=== PATIENT | male | born 1970 | race Caucasian/White ===

== ENCOUNTER 2017-11-08 04:13 | Inpatient (IN) | payer BC, MEDICAID ==
[~2017-11-08] VITALS: Ht 198.1 cm; Wt 143.2 kg
[~2017-11-08 04:13] MED LIST: CLIN-5 PO; DILT180C64 PO; ENOX100D5 SQ; FOLI1TAB16 PO; THI100T PO
[2017-11-08 05:19] LABS: BASOPHILS % (AUTO) 0.4 % (0-1); EOSINOPHILS # (AUTO) 0.1 X10'3 (0-0.9); EOSINOPHILS % (AUTO) 1.8 % (0-6); HEMATOCRIT 49.8 % (42.0-52.0); HEMOGLOBIN 17.1 g/dl (14.0-17.9); LYMPHOCYTES # (AUTO) 0.6 X10'3 (1.1-4.8); LYMPHOCYTES % (AUTO) 9.1 % (21-51); MEAN CORPUSCULAR HEMOGLOBIN 30.4 PG (27.0-31.0); MEAN CORPUSCULAR HGB CONC 34.3 % (33.0-36.5); MEAN CORPUSCULAR VOLUME 88.6 FL (78-98); MEAN PLATELET VOLUME 8.3 FL (7.4-10.4); MONOCYTES # (AUTO) 0.7 X10'3 (0-0.9); MONOCYTES % (AUTO) 10.2 % (2-12); NEUTROPHILS # (AUTO) 5.1 X10'3 (1.8-7.7); NEUTROPHILS % (AUTO) 78.5 % (42-75); PLATELET COUNT 237 X10'3 (140-440); RED BLOOD COUNT 5.62 X10'6 (4.70-6.10); RED CELL DISTRIBUTION WIDTH 12.3 % (11.5-14.5); WHITE BLOOD COUNT 6.4 X10'3 (4.5-11.0)
[2017-11-08 05:31] LABS: INR 0.9 INR; PARTIAL THROMBOPLASTIN TIME 32 SECONDS (22-32); PROTHROMBIN TIME 9.6 SECONDS (9.0-12.0)
[2017-11-08 05:35] LABS: ALANINE AMINOTRANSFERASE 52 U/L (12-78); ALBUMIN 3.8 G/DL (3.4-5.0); ALKALINE PHOSPHATASE 86 IU/L (46-116); ANION GAP 12 (8-16); ASPARTATE AMINO TRANSFERASE 51 U/L (10-37); BILIRUBIN,TOTAL 0.6 MG/DL (0.1-1.0); BLOOD UREA NITROGEN 16 MG/DL (7-18); CALCIUM 8.3 MG/DL (8.5-10.1); CHLORIDE 105 MMOL/L (99-107); GLUCOSE 107 MG/DL (70-104); POTASSIUM 3.9 MMOL/L (3.5-5.1); SODIUM 138 MMOL/L (135-145); TOTAL CARBON DIOXIDE 21.1 MMOL/L (24-32); TOTAL PROTEIN 7.5 G/DL (6.4-8.2); eGFR 80 ML/MIN
[2017-11-08] MEDS ORDERED: HYDROmorphone 1 mg/ml syringe IV ONE (06:20)
[2017-11-08] MEDS ORDERED: HYDROmorphone 2mg/ml vial IV ONE (06:30)
[2017-11-08] MEDS ORDERED: iohexol 350MG/ML 100ml bottle IV ONE (06:58)
[2017-11-08] MEDS ORDERED: HYDROmorphone 2mg/ml vial IV PRN (08:30)
[2017-11-08] MEDS ORDERED: magnesium hydroxide 30ml (MOM) UD suspension PO PRN ×2 (10:15)
[2017-11-08] MEDS ORDERED: potassium Cl 20 mEq SR tablet PO PRN ×2 (10:15)
[2017-11-08] MEDS ORDERED: magnesium 4gm in 100ml NS 100 ML IV PRN (10:15)
[2017-11-08] MEDS ORDERED: HYDROcodone/acetaminophen 5mg/325mg tablet PO PRN (10:15)
[2017-11-08] MEDS ORDERED: magnesium 2GM in 50ml NS 50 ML IV PRN (10:15)
[2017-11-08] MEDS ORDERED: acetaminophen 325mg tablet PO PRN ×2 (10:15)
[2017-11-08] MEDS ORDERED: potassium Cl 40MEQ/NS 500ml 500 ML IV PRN ×2 (10:15)
[2017-11-08] MEDS ORDERED: magnesium Cl slow-release 64mg tablet PO PRN (10:15)
[2017-11-08] MEDS ORDERED: bisacodyl 10mg suppository rectal RC PRN (10:15)
[2017-11-08] MEDS ORDERED: HYDROmorphone 1 mg/ml syringe IV PRN ×2 (10:15)
[2017-11-08] MEDS ORDERED: mag hydrox/Alum hydrox/simeth 30ml oral suspension PO PRN ×2 (10:15)
[2017-11-08] MEDS ORDERED: enoxaparin 100mg/ml syringe SUBCUT ONE (10:20)
[2017-11-08] MEDS ORDERED: hydrALAZINE 20mg/ml inj. IV PRN (10:40)
[2017-11-08] MEDS: HYDROcodone/acetaminophen 10/325mg tab PO PRN ×4 (11:07→22:52)
[2017-11-08] MEDS: cefTRIAXone 1g/NS 100ml IVPB 100 ML IV SCH (11:12)
[2017-11-08] MEDS: diltiazem CD 180mg cap (once-daily) PO SCH (11:28)
[2017-11-08] MEDS: potassium cl 20mEq in 1/2 NS 1,000 ML IV SCH ×2 (11:28→20:30)
[2017-11-08 12:33] VITALS: BP 152/94
[2017-11-08] MEDS: morphine 2 MG/ML inj. syringe IV PRN ×3 (13:29→20:30)
[2017-11-08] MEDS: guaiFENesin 200 MG/10 ML oral syrup UD cup PO SCH ×2 (13:33→20:21)
[2017-11-08] MEDS: ondansetron/PF 4mg/2ml inj IV PRN (19:07)
[2017-11-08 20:00] VITALS: BP 153/95
[2017-11-08] MEDS: docusate sod 100mg capsule PO SCH (20:00)
[2017-11-08] MEDS: enoxaparin 40mg/0.4ml syringe SUBCUT SCH (20:21)
[2017-11-08] MEDS: diatr meglu/diatrizoate 30ml oral sol.-(3 dose) bottle PO SCH (20:22)
[2017-11-08] MEDS: enoxaparin 100mg/ml syringe SUBCUT SCH (20:22)
[2017-11-09] VITALS: BP 132/69
[2017-11-09] MEDS: guaiFENesin 200 MG/10 ML oral syrup UD cup PO SCH ×5 (01:43→20:04)
[2017-11-09] MEDS: morphine 2 MG/ML inj. syringe IV PRN ×4 (03:49→21:07)
[2017-11-09] MEDS: ondansetron/PF 4mg/2ml inj IV PRN ×5 (04:01→21:07)
[2017-11-09 05:29] LABS: BASOPHILS % (AUTO) 0.4 % (0-1); EOSINOPHILS # (AUTO) 0.1 X10'3 (0-0.9); EOSINOPHILS % (AUTO) 0.9 % (0-6); HEMATOCRIT 43.9 % (42.0-52.0); HEMOGLOBIN 15.4 g/dl (14.0-17.9); LYMPHOCYTES # (AUTO) 0.8 X10'3 (1.1-4.8); LYMPHOCYTES % (AUTO) 12.6 % (21-51); MEAN CORPUSCULAR HEMOGLOBIN 31.3 PG (27.0-31.0); MEAN CORPUSCULAR HGB CONC 35.2 % (33.0-36.5); MEAN CORPUSCULAR VOLUME 88.8 FL (78-98); MEAN PLATELET VOLUME 8.8 FL (7.4-10.4); MONOCYTES % (AUTO) 16.5 % (2-12); NEUTROPHILS # (AUTO) 4.4 X10'3 (1.8-7.7); NEUTROPHILS % (AUTO) 69.6 % (42-75); PLATELET COUNT 194 X10'3 (140-440); RED BLOOD COUNT 4.94 X10'6 (4.70-6.10); RED CELL DISTRIBUTION WIDTH 12.1 % (11.5-14.5); WHITE BLOOD COUNT 6.3 X10'3 (4.5-11.0)
[2017-11-09 05:48] LABS: ALANINE AMINOTRANSFERASE 54 U/L (12-78); ALBUMIN 3.3 G/DL (3.4-5.0); ALBUMIN/GLOBULIN RATIO 0.9 (1.1-1.5); ALKALINE PHOSPHATASE 71 IU/L (46-116); ANION GAP 6 (8-16); ASPARTATE AMINO TRANSFERASE 40 U/L (10-37); BILIRUBIN,TOTAL 0.5 MG/DL (0.1-1.0); BLOOD UREA NITROGEN 11 MG/DL (7-18); CHLORIDE 100 MMOL/L (99-107); CHOL/HDL RATIO 3.7 (0.00-4.99); CHOLESTEROL 187 MG/DL (0-200); GLUCOSE 111 MG/DL (70-104); HDL CHOLESTEROL 51 MG/DL (35-60); LDL CHOLESTEROL 121 MG/DL (50-100); MAGNESIUM 1.7 MG/DL (1.5-2.4); POTASSIUM 3.7 MMOL/L (3.5-5.1); SODIUM 135 MMOL/L (135-145); TOTAL CARBON DIOXIDE 28.7 MMOL/L (24-32); TOTAL PROTEIN 6.8 G/DL (6.4-8.2); TRIGLYCERIDES 128 MG/DL (20-135); eGFR 80 ML/MIN
[2017-11-09] MEDS: thiamine 100mg tablet PO SCH (07:25)
[2017-11-09] MEDS: diltiazem CD 180mg cap (once-daily) PO SCH (07:25)
[2017-11-09] MEDS: docusate sod 100mg capsule PO SCH ×2 (07:25→20:00)
[2017-11-09] MEDS: folic acid 1mg tablet PO SCH (07:25)
[2017-11-09] MEDS: K and/or MAG REPLACEMENT MC SCH (07:26)
[2017-11-09] MEDS: cefTRIAXone 1g/NS 100ml IVPB 100 ML IV SCH (07:40)
[2017-11-09] MEDS: enoxaparin 40mg/0.4ml syringe SUBCUT SCH ×2 (07:47→20:05)
[2017-11-09] MEDS: enoxaparin 100mg/ml syringe SUBCUT SCH ×2 (07:49→20:05)
[2017-11-09] MEDS: diatr meglu/diatrizoate 30ml oral sol.-(3 dose) bottle PO SCH ×2 (07:50→09:56)
[2017-11-09 08:00] VITALS: BP 168/77
[2017-11-09] MEDS ORDERED: iohexol 350MG/ML 100ml bottle IV ONE (09:57)
[2017-11-09 11:00] VITALS: BP 164/76
[2017-11-09] MEDS ORDERED: ketorolac trometh. 30mg/ml inj. IV PRN (12:50)
[2017-11-09] MEDS: oseltamivir phos 75mg capsule PO SCH ×2 (13:37→20:04)
[2017-11-09] MEDS: potassium cl 20mEq in 1/2 NS 1,000 ML IV SCH (13:49)
[2017-11-09 20:00] VITALS: BP 142/78
[2017-11-09] MEDS: lactobacillus rhamnosus 10,000 MMU CELLS/CAPSULE PO SCH (20:04)
[2017-11-10] VITALS: BP 143/84
[2017-11-10] MEDS: potassium cl 20mEq in 1/2 NS 1,000 ML IV SCH ×2 (03:15→18:08)
[2017-11-10] MEDS: ondansetron/PF 4mg/2ml inj IV PRN ×3 (03:58→19:00)
[2017-11-10] MEDS: morphine 2 MG/ML inj. syringe IV PRN ×4 (03:59→19:00)
[2017-11-10 05:11] LABS: BASOPHILS % (AUTO) 0.5 % (0-1); EOSINOPHILS % (AUTO) 0 % (0-6); HEMOGLOBIN 15.3 g/dl (14.0-17.9); LYMPHOCYTES # (AUTO) 1.3 X10'3 (1.1-4.8); LYMPHOCYTES % (AUTO) 24.3 % (21-51); MEAN CORPUSCULAR HEMOGLOBIN 31.4 PG (27.0-31.0); MEAN CORPUSCULAR HGB CONC 35.5 % (33.0-36.5); MEAN CORPUSCULAR VOLUME 88.4 FL (78-98); MEAN PLATELET VOLUME 8.8 FL (7.4-10.4); MONOCYTES # (AUTO) 1.2 X10'3 (0-0.9); MONOCYTES % (AUTO) 22.4 % (2-12); NEUTROPHILS # (AUTO) 2.8 X10'3 (1.8-7.7); NEUTROPHILS % (AUTO) 52.8 % (42-75); PLATELET COUNT 203 X10'3 (140-440); RED BLOOD COUNT 4.86 X10'6 (4.70-6.10); RED CELL DISTRIBUTION WIDTH 11.9 % (11.5-14.5); WHITE BLOOD COUNT 5.2 X10'3 (4.5-11.0)
[2017-11-10 05:36] LABS: ALANINE AMINOTRANSFERASE 55 U/L (12-78); ALBUMIN 3.2 G/DL (3.4-5.0); ALBUMIN/GLOBULIN RATIO 0.9 (1.1-1.5); ALKALINE PHOSPHATASE 68 IU/L (46-116); ANION GAP 7 (8-16); ASPARTATE AMINO TRANSFERASE 39 U/L (10-37); BILIRUBIN,TOTAL 0.5 MG/DL (0.1-1.0); BLOOD UREA NITROGEN 13 MG/DL (7-18); BUN/CREATININE RATIO 11.8 (5.4-32.0); CALCIUM 8.2 MG/DL (8.5-10.1); CHLORIDE 101 MMOL/L (99-107); GLUCOSE 98 MG/DL (70-104); MAGNESIUM 2.1 MG/DL (1.5-2.4); POTASSIUM 3.7 MMOL/L (3.5-5.1); SODIUM 138 MMOL/L (135-145); TOTAL CARBON DIOXIDE 29.6 MMOL/L (24-32); TOTAL PROTEIN 6.7 G/DL (6.4-8.2); eGFR 71 ML/MIN
[2017-11-10] MEDS: K and/or MAG REPLACEMENT MC SCH (07:28)
[2017-11-10 07:30] VITALS: BP 150/83
[2017-11-10] MEDS: enoxaparin 100mg/ml syringe SUBCUT SCH ×2 (07:37→20:46)
[2017-11-10] MEDS: enoxaparin 40mg/0.4ml syringe SUBCUT SCH ×2 (07:37→20:46)
[2017-11-10] MEDS: guaiFENesin 200 MG/10 ML oral syrup UD cup PO SCH ×4 (07:37→20:45)
[2017-11-10] MEDS: oseltamivir phos 75mg capsule PO SCH ×2 (07:38→20:46)
[2017-11-10] MEDS: thiamine 100mg tablet PO SCH (07:38)
[2017-11-10] MEDS: diltiazem CD 180mg cap (once-daily) PO SCH (07:38)
[2017-11-10] MEDS: lactobacillus rhamnosus 10,000 MMU CELLS/CAPSULE PO SCH ×2 (07:38→20:45)
[2017-11-10] MEDS: cefTRIAXone 1g/NS 100ml IVPB 100 ML IV SCH (07:38)
[2017-11-10] MEDS: folic acid 1mg tablet PO SCH (07:38)
[2017-11-10] MEDS: docusate sod 100mg capsule PO SCH ×2 (07:38→19:59)
[2017-11-10 12:10] VITALS: BP 140/88
[2017-11-10] MEDS: HYDROcodone/acetaminophen 10/325mg tab PO PRN (16:54)
[2017-11-10] MEDS ORDERED: LORazepam 2 mg/ml vial IV ONE (17:05)
[2017-11-10 20:00] VITALS: BP 154/83
[2017-11-11] VITALS: BP 158/72
[2017-11-11] MEDS: ondansetron/PF 4mg/2ml inj IV PRN (01:08)
[2017-11-11] MEDS: morphine 2 MG/ML inj. syringe IV PRN ×2 (01:08→08:02)
[2017-11-11] MEDS: HYDROcodone/acetaminophen 10/325mg tab PO PRN ×3 (04:54→17:19)
[2017-11-11 05:18] LABS: BASOPHILS % (AUTO) 0.3 % (0-1); EOSINOPHILS # (AUTO) 0.1 X10'3 (0-0.9); EOSINOPHILS % (AUTO) 1.1 % (0-6); HEMOGLOBIN 16.6 g/dl (14.0-17.9); LYMPHOCYTES # (AUTO) 1.5 X10'3 (1.1-4.8); LYMPHOCYTES % (AUTO) 28.3 % (21-51); MEAN CORPUSCULAR HEMOGLOBIN 31.2 PG (27.0-31.0); MEAN CORPUSCULAR HGB CONC 35.3 % (33.0-36.5); MEAN CORPUSCULAR VOLUME 88.4 FL (78-98); MEAN PLATELET VOLUME 8.8 FL (7.4-10.4); MONOCYTES # (AUTO) 0.9 X10'3 (0-0.9); MONOCYTES % (AUTO) 17.9 % (2-12); NEUTROPHILS # (AUTO) 2.7 X10'3 (1.8-7.7); NEUTROPHILS % (AUTO) 52.4 % (42-75); PLATELET COUNT 212 X10'3 (140-440); RED BLOOD COUNT 5.32 X10'6 (4.70-6.10); WHITE BLOOD COUNT 5.2 X10'3 (4.5-11.0)
[2017-11-11 05:34] LABS: ALANINE AMINOTRANSFERASE 64 U/L (12-78); ALBUMIN 3.4 G/DL (3.4-5.0); ALBUMIN/GLOBULIN RATIO 0.9 (1.1-1.5); ALKALINE PHOSPHATASE 71 IU/L (46-116); ANION GAP 7 (8-16); ASPARTATE AMINO TRANSFERASE 45 U/L (10-37); BILIRUBIN,TOTAL 0.5 MG/DL (0.1-1.0); BLOOD UREA NITROGEN 12 MG/DL (7-18); BUN/CREATININE RATIO 10.1 (5.4-32.0); CALCIUM 8.5 MG/DL (8.5-10.1); CHLORIDE 101 MMOL/L (99-107); CREATININE 1.19 MG/DL (0.60-1.10); GLUCOSE 83 MG/DL (70-104); MAGNESIUM 2.2 MG/DL (1.5-2.4); POTASSIUM 3.8 MMOL/L (3.5-5.1); SODIUM 141 MMOL/L (135-145); TOTAL PROTEIN 7.2 G/DL (6.4-8.2); eGFR 65 ML/MIN
[2017-11-11] MEDS: K and/or MAG REPLACEMENT MC SCH (06:38)
[2017-11-11 07:17] VITALS: BP 128/77
[2017-11-11] MEDS: thiamine 100mg tablet PO SCH (08:02)
[2017-11-11] MEDS: lactobacillus rhamnosus 10,000 MMU CELLS/CAPSULE PO SCH ×2 (08:02→19:13)
[2017-11-11] MEDS: diltiazem CD 180mg cap (once-daily) PO SCH (08:02)
[2017-11-11] MEDS: docusate sod 100mg capsule PO SCH ×2 (08:02→19:13)
[2017-11-11] MEDS: guaiFENesin 200 MG/10 ML oral syrup UD cup PO SCH ×4 (08:02→21:20)
[2017-11-11] MEDS: folic acid 1mg tablet PO SCH (08:02)
[2017-11-11] MEDS: CefTRIAXone 1 gm/50ml D5W ADV 50 ML IV SCH (08:03)
[2017-11-11] MEDS: enoxaparin 40mg/0.4ml syringe SUBCUT SCH ×2 (08:04→19:14)
[2017-11-11] MEDS: enoxaparin 100mg/ml syringe SUBCUT SCH ×2 (08:04→19:14)
[2017-11-11] MEDS: oseltamivir phos 75mg capsule PO SCH ×2 (08:12→19:13)
[2017-11-11] MEDS: potassium cl 20mEq in 1/2 NS 1,000 ML IV SCH (10:02)
[2017-11-11 11:14] VITALS: BP 149/92
[2017-11-11] MEDS ORDERED: morphine 5 MG/ML injection IV PRN (19:25)
[2017-11-11 20:00] VITALS: BP 147/83
[2017-11-11] MEDS: morphine 5 MG/ML injection IV PRN (21:21)
[2017-11-12] VITALS: BP 145/77
[2017-11-12] MEDS: potassium cl 20mEq in 1/2 NS 1,000 ML IV SCH ×2 (00:03→08:31)
[2017-11-12] MEDS: morphine 5 MG/ML injection IV PRN ×2 (01:59→07:24)
[2017-11-12 05:42] LABS: BASOPHILS % (AUTO) 0.5 % (0-1); EOSINOPHILS # (AUTO) 0.1 X10'3 (0-0.9); EOSINOPHILS % (AUTO) 1.7 % (0-6); HEMATOCRIT 50.4 % (42.0-52.0); HEMOGLOBIN 17.5 g/dl (14.0-17.9); LYMPHOCYTES # (AUTO) 1.4 X10'3 (1.1-4.8); LYMPHOCYTES % (AUTO) 29.9 % (21-51); MEAN CORPUSCULAR HEMOGLOBIN 30.9 PG (27.0-31.0); MEAN CORPUSCULAR HGB CONC 34.7 % (33.0-36.5); MEAN CORPUSCULAR VOLUME 88.9 FL (78-98); MEAN PLATELET VOLUME 8.9 FL (7.4-10.4); MONOCYTES # (AUTO) 0.6 X10'3 (0-0.9); MONOCYTES % (AUTO) 13.6 % (2-12); NEUTROPHILS # (AUTO) 2.5 X10'3 (1.8-7.7); NEUTROPHILS % (AUTO) 54.3 % (42-75); PLATELET COUNT 232 X10'3 (140-440); RED BLOOD COUNT 5.67 X10'6 (4.70-6.10); WHITE BLOOD COUNT 4.6 X10'3 (4.5-11.0)
[2017-11-12 06:22] LABS: ALANINE AMINOTRANSFERASE 82 U/L (12-78); ALBUMIN 3.5 G/DL (3.4-5.0); ALBUMIN/GLOBULIN RATIO 0.9 (1.1-1.5); ALKALINE PHOSPHATASE 73 IU/L (46-116); ANION GAP 11 (8-16); ASPARTATE AMINO TRANSFERASE 50 U/L (10-37); BILIRUBIN,TOTAL 0.8 MG/DL (0.1-1.0); BLOOD UREA NITROGEN 12 MG/DL (7-18); BUN/CREATININE RATIO 10.4 (5.4-32.0); CALCIUM 8.3 MG/DL (8.5-10.1); CHLORIDE 101 MMOL/L (99-107); CREATININE 1.15 MG/DL (0.60-1.10); GLUCOSE 82 MG/DL (70-104); POTASSIUM 3.4 MMOL/L (3.5-5.1); SODIUM 141 MMOL/L (135-145); TOTAL CARBON DIOXIDE 29.4 MMOL/L (24-32); TOTAL PROTEIN 7.3 G/DL (6.4-8.2); eGFR 68 ML/MIN
[2017-11-12 07:00] VITALS: BP 136/75
[2017-11-12] MEDS: enoxaparin 40mg/0.4ml syringe SUBCUT SCH (08:23)
[2017-11-12] MEDS: CefTRIAXone 1 gm/50ml D5W ADV 50 ML IV SCH (08:24)
[2017-11-12] MEDS: enoxaparin 100mg/ml syringe SUBCUT SCH (08:24)
[2017-11-12] MEDS: docusate sod 100mg capsule PO SCH (08:25)
[2017-11-12] MEDS: diltiazem CD 180mg cap (once-daily) PO SCH (08:25)
[2017-11-12] MEDS: thiamine 100mg tablet PO SCH (08:25)
[2017-11-12] MEDS: lactobacillus rhamnosus 10,000 MMU CELLS/CAPSULE PO SCH (08:25)
[2017-11-12] MEDS: oseltamivir phos 75mg capsule PO SCH (08:25)
[2017-11-12] MEDS: folic acid 1mg tablet PO SCH (08:25)
[2017-11-12] MEDS: guaiFENesin 200 MG/10 ML oral syrup UD cup PO SCH ×2 (08:25→13:17)
[2017-11-12 11:00] VITALS: BP 137/82
[2017-11-12] MEDS ORDERED: potassium bicarbonate/cit acid 25mEq tablet.effervescent PO SCH (11:15)
[2017-11-12] MEDS ORDERED: LISI-604 PO (11:46)
[2017-11-12] MEDS ORDERED: DOXY100C2 PO (11:46)
[2017-11-12] MEDS ORDERED: potassium chloride 10mEq CAPSULE.SA PO SCH (11:50)
[2017-11-12] MEDS ORDERED: potassium Cl 20 mEq SR tablet PO SCH (11:52)
[2017-11-12] MEDS ORDERED: cefTRIAXone 1g/NS 100ml IVPB 100 ML IV SCH (11:57)
== END 2017-11-12 15:11 | disposition home or self-care (01) | DRG 194 ==
LOC: ER 04:14 → ED HOLD 10:12 → EDBEDREQ 11:49 → SUR 3N 12:14
PROVIDERS: ADMIT Internal Medicine; ATTEND Family Medicine
PROC: B32T1ZZ Computerized Tomography (CT Scan) of Left Pulmonary Artery using Low Osmolar Contrast (ICD-10-PCS; 2017-11-08)
PROC: B3201ZZ Computerized Tomography (CT Scan) of Thoracic Aorta using Low Osmolar Contrast (ICD-10-PCS; 2017-11-08)
PROC: B32S1ZZ Computerized Tomography (CT Scan) of Right Pulmonary Artery using Low Osmolar Contrast (ICD-10-PCS; 2017-11-08)
PROC: BW211ZZ Computerized Tomography (CT Scan) of Abdomen and Pelvis using Low Osmolar Contrast (ICD-10-PCS; principal; 2017-11-09)
DX: J10.1 Influenza due to other identified influenza virus with other respiratory manifestations (principal); I82.401 Acute embolism and thrombosis of unspecified deep veins of right lower extremity; F10.20 Alcohol dependence, uncomplicated; I10 Essential (primary) hypertension; M51.36 Other intervertebral disc degeneration, lumbar region; Z86.711 Personal history of pulmonary embolism; Z86.718 Personal history of other venous thrombosis and embolism; Z87.891 Personal history of nicotine dependence
CPT/HCPCS: 36415; 71045; 71275; 74177; 80053; 80061; 83735; 84484; 85025; 85610; 85730; 87070; 87502; 87503; 93005; 93306; 93971; 96374; 96376; 99285; J0696; J1170; J1650; J1885; J2060; J2270; J2405; J7030; Q9963; Q9967

== ENCOUNTER 2018-08-07 12:04 | Emergency (ER) | payer BC ==
[~2018-08-07] VITALS: Ht 198.1 cm; Wt 132.0 kg
[~2018-08-07 12:04] MED LIST changes: -CLIN-5 PO; +LISI-604 PO
[2018-08-07 12:38] LABS: BASOPHILS % (AUTO) 0.4 % (0-1); EOSINOPHILS # (AUTO) 0.1 X10'3 (0-0.9); EOSINOPHILS % (AUTO) 1.2 % (0-6); HEMATOCRIT 53.7 % (42.0-52.0); LYMPHOCYTES # (AUTO) 1.8 X10'3 (1.1-4.8); LYMPHOCYTES % (AUTO) 26.2 % (21-51); MEAN CORPUSCULAR HEMOGLOBIN 30.3 PG (27.0-31.0); MEAN CORPUSCULAR HGB CONC 33.6 % (33.0-36.5); MEAN CORPUSCULAR VOLUME 90.3 FL (78-98); MEAN PLATELET VOLUME 8.5 FL (7.4-10.4); MONOCYTES # (AUTO) 0.6 X10'3 (0-0.9); MONOCYTES % (AUTO) 8.7 % (2-12); NEUTROPHILS # (AUTO) 4.3 X10'3 (1.8-7.7); NEUTROPHILS % (AUTO) 63.5 % (42-75); PLATELET COUNT 290 X10'3 (140-440); RED BLOOD COUNT 5.94 X10'6 (4.70-6.10); WHITE BLOOD COUNT 6.8 X10'3 (4.5-11.0)
[2018-08-07] MEDS ORDERED: iohexol 350MG/ML 100ml bottle IV ONE ×2 (12:50→13:18)
[2018-08-07 12:51] LABS: ALANINE AMINOTRANSFERASE 54 U/L (12-78); ALBUMIN 3.8 G/DL (3.4-5.0); ALKALINE PHOSPHATASE 103 IU/L (46-116); ANION GAP 9 (8-16); ASPARTATE AMINO TRANSFERASE 24 U/L (10-37); BLOOD UREA NITROGEN 12 MG/DL (7-18); BUN/CREATININE RATIO 11.5 (5.4-32.0); CALCIUM 9.2 MG/DL (8.5-10.1); CHLORIDE 102 MMOL/L (99-107); CREATININE 1.04 MG/DL (0.60-1.10); GLUCOSE 98 MG/DL (70-104); POTASSIUM 3.9 MMOL/L (3.5-5.1); SODIUM 138 MMOL/L (135-145); TOTAL CARBON DIOXIDE 26.6 MMOL/L (24-32); TOTAL PROTEIN 7.7 G/DL (6.4-8.2); eGFR 76 ML/MIN
[2018-08-07] MEDS ORDERED: ondansetron/PF 4mg/2ml inj IV ONE (12:55)
[2018-08-07] MEDS ORDERED: morphine 10mg/ml inj. IV ONE (12:55)
[2018-08-07 13:01] LABS: D-DIMER 0.25 MG/L FEU (0-0.50); PARTIAL THROMBOPLASTIN TIME 31 SECONDS (22-32)
[2018-08-07] MEDS ORDERED: enoxaparin 100mg/ml syringe SUBCUT ONE (13:40)
[2018-08-07] MEDS ORDERED: TRAM50TA2 PO (14:48)
[2018-08-07] MEDS ORDERED: APIX5TAB3 PO (14:48)
[2018-08-07 14:54] VITALS: BP 155/97
== END 2018-08-07 14:55 | disposition home or self-care (01) ==
LOC: ER 12:05
DX: I82.411 Acute embolism and thrombosis of right femoral vein (principal); R06.02 Shortness of breath; R07.9 Chest pain, unspecified; R05 Cough
CPT/HCPCS: 36415; 71045; 71275; 80053; 84484; 85025; 85379; 85610; 85730; 93005; 93971; 96372; 96374; 96375; 99285; J2270; J2405; Q9967; J1650

== ENCOUNTER 2019-08-17 08:03 | Emergency (ER) | payer BC ==
[~2019-08-17] VITALS: Ht 198.1 cm; Wt 143.0 kg
[~2019-08-17 08:03] MED LIST changes: +APIX5TAB3 PO
[2019-08-17] MEDS ORDERED: oxyCODONE/APAP 5-325mg tablet PO ONE (08:20)
[2019-08-17] MEDS ORDERED: oxyCODONE/APAP 10/325mg tablet PO ONE (08:20)
[2019-08-17] MEDS ORDERED: apixaban 5mg tablet PO STA (08:21)
[2019-08-17] MEDS ORDERED: enoxaparin 100mg/ml syringe SUBCUT ONE (08:25)
[2019-08-17] MEDS ORDERED: enoxaparin 40mg/0.4ml syringe SQ ONE (08:30)
[2019-08-17 08:37] LABS: BASOPHILS % (AUTO) 0.7 % (0-1); EOSINOPHILS # (AUTO) 0.1 X10'3 (0-0.9); EOSINOPHILS % (AUTO) 1.5 % (0-6); HEMATOCRIT 53.9 % (42.0-52.0); LYMPHOCYTES # (AUTO) 2.1 X10'3 (1.1-4.8); LYMPHOCYTES % (AUTO) 31.9 % (21-51); MEAN CORPUSCULAR HEMOGLOBIN 31.1 PG (27.0-31.0); MEAN CORPUSCULAR HGB CONC 33.9 g/dL (33.0-36.5); MEAN CORPUSCULAR VOLUME 91.8 FL (78-98); MEAN PLATELET VOLUME 8.5 FL (7.4-10.4); MONOCYTES # (AUTO) 0.7 X10'3 (0-0.9); MONOCYTES % (AUTO) 11.1 % (2-12); NEUTROPHILS # (AUTO) 3.5 X10'3 (1.8-7.7); NEUTROPHILS % (AUTO) 54.8 % (42-75); PLATELET COUNT 272 X10'3 (140-440); RED BLOOD COUNT 5.87 X10'6 (4.70-6.10); RED CELL DISTRIBUTION WIDTH 13.7 % (11.5-14.5); WHITE BLOOD COUNT 6.4 X10'3 (4.5-11.0)
--- NOTE | 2019-08-17 08:45 | NUR ---
Vascular at bedside.
[2019-08-17 08:47] LABS: HEMOGLOBIN 18.3 g/dl (14.0-17.9)
[2019-08-17 08:52] LABS: D-DIMER < 0.19 MG/L FEU (0-0.50)
[2019-08-17 08:55] LABS: ALANINE AMINOTRANSFERASE 37 U/L (12-78); ALBUMIN 3.9 G/DL (3.4-5.0); ALBUMIN/GLOBULIN RATIO 0.9 (1.1-1.5); ALKALINE PHOSPHATASE 96 IU/L (46-116); ANION GAP 7 (8-16); ASPARTATE AMINO TRANSFERASE 24 U/L (10-37); BILIRUBIN,TOTAL 0.5 MG/DL (0.1-1.0); BLOOD UREA NITROGEN 15 MG/DL (7-18); CHLORIDE 105 MMOL/L (99-107); CREATININE 1.07 MG/DL (0.60-1.10); GLUCOSE 100 MG/DL (70-104); POTASSIUM 4.7 MMOL/L (3.5-5.1); SODIUM 139 MMOL/L (135-145); TOTAL CARBON DIOXIDE 26.8 MMOL/L (24-32); TOTAL PROTEIN 8.2 G/DL (6.4-8.2); eGFR 73 ML/MIN
[2019-08-17 09:01] LABS: MAGNESIUM 1.9 MG/DL (1.5-2.4)
[2019-08-17 10:02] VITALS: BP 163/96
== END 2019-08-17 10:08 | disposition home or self-care (01) ==
LOC: ER 08:04
DX: I82.531 Chronic embolism and thrombosis of right popliteal vein (principal); R07.89 Other chest pain; R05 Cough; F10.99 Alcohol use, unspecified with unspecified alcohol-induced disorder; Z79.01 Long term (current) use of anticoagulants; Y90.9 Presence of alcohol in blood, level not specified
CPT/HCPCS: 36415; 71045; 80053; 83735; 83880; 84484; 85025; 85379; 85610; 93005; 93971; 96372; 99284; J1650

== ENCOUNTER 2020-03-09 18:11 | Inpatient (IN) | payer BC ==
[~2020-03-09] VITALS: Ht 198.1 cm; Wt 145.4 kg
[2020-03-09 18:48] LABS: BASOPHILS # (AUTO) 0.1 X10'3 (0-0.2); BASOPHILS % (AUTO) 0.7 % (0-1); EOSINOPHILS # (AUTO) 0.1 X10'3 (0-0.9); HEMATOCRIT 53.5 % (42.0-52.0); LYMPHOCYTES # (AUTO) 2.5 X10'3 (1.1-4.8); LYMPHOCYTES % (AUTO) 23.3 % (21-51); MEAN CORPUSCULAR HEMOGLOBIN 31.8 PG (27.0-31.0); MEAN CORPUSCULAR HGB CONC 34.3 g/dL (33.0-36.5); MEAN CORPUSCULAR VOLUME 92.7 FL (78-98); MEAN PLATELET VOLUME 8.9 FL (7.4-10.4); MONOCYTES # (AUTO) 1.1 X10'3 (0-0.9); MONOCYTES % (AUTO) 10.1 % (2-12); NEUTROPHILS # (AUTO) 6.8 X10'3 (1.8-7.7); NEUTROPHILS % (AUTO) 64.9 % (42-75); PLATELET COUNT 283 X10'3 (140-440); RED BLOOD COUNT 5.78 X10'6 (4.70-6.10); RED CELL DISTRIBUTION WIDTH 13.3 % (11.5-14.5); WHITE BLOOD COUNT 10.5 X10'3 (4.5-11.0)
[2020-03-09 18:54] LABS: HEMOGLOBIN 18.4 g/dl (14.0-17.9)
[2020-03-09 18:59] LABS: ALANINE AMINOTRANSFERASE 68 U/L (12-78); ALBUMIN/GLOBULIN RATIO 1.1 (1.1-1.5); ALKALINE PHOSPHATASE 92 IU/L (46-116); ANION GAP 14 (8-16); ASPARTATE AMINO TRANSFERASE 40 U/L (10-37); BILIRUBIN,TOTAL 1.1 MG/DL (0.1-1.0); BLOOD UREA NITROGEN 13 MG/DL (7-18); BUN/CREATININE RATIO 11.2 (5.4-32.0); CALCIUM 9.2 MG/DL (8.5-10.1); CHLORIDE 105 MMOL/L (99-107); CREATININE 1.16 MG/DL (0.60-1.10); GLUCOSE 92 MG/DL (70-104); POTASSIUM 3.7 MMOL/L (3.5-5.1); SODIUM 143 MMOL/L (135-145); TOTAL CARBON DIOXIDE 24.5 MMOL/L (24-32); TOTAL PROTEIN 7.7 G/DL (6.4-8.2); eGFR 67 ML/MIN
[2020-03-09] MEDS ORDERED: nitroGLYCERIN 0.4mg SUBLingual tab SL PRN (19:30)
[2020-03-09] MEDS ORDERED: aspirin 81mg tab.chew PO ONE (19:30)
[2020-03-09] MEDS ORDERED: iohexol 350MG/ML 100ml bottle IV ONE (19:35)
--- NOTE | 2020-03-09 19:47 | NUR ---
DR DOMINGUEZ IS AWAITING APPROVAL FROM DR QUINTANA FOR RAPID COVID 19 TESTING
--- NOTE | 2020-03-09 19:54 | NUR ---
PT APPROVED FOR COVID TESTING BY DR QUINTANA AND RN MADE AWARE
[2020-03-09] MEDS ORDERED: morphine 4 MG/ML inj SYRINge IV ONE (21:30)
[2020-03-09] MEDS ORDERED: heparin 25,000 UNIT/250ml bag 250 ML IV SCH (21:48)
[2020-03-09] MEDS ORDERED: ondansetron/PF 4mg/2ml inj IV PRN (21:50)
[2020-03-09] MEDS ORDERED: morphine 2 MG/ML inj. syringe IV PRN (21:50)
[2020-03-09] MEDS ORDERED: magnesium 2GM in 50ml NS 50 ML IV PRN (21:50)
[2020-03-09] MEDS ORDERED: heparin 10,000 units/1 ML INJ IV PRN (21:50)
[2020-03-09] MEDS ORDERED: acetaminophen 325mg tablet PO PRN (21:50)
[2020-03-09] MEDS ORDERED: mag hydrox/Alum hydrox/simeth 30ml oral suspension PO PRN (21:50)
[2020-03-09] MEDS ORDERED: magnesium 4gm in 100ml NS 100 ML IV PRN (21:50)
[2020-03-09] MEDS ORDERED: HYDROcodone/acetaminophen 5mg/325mg tablet PO PRN (21:50)
[2020-03-09] MEDS ORDERED: potassium Cl 20 mEq SR tablet PO PRN ×2 (21:50)
[2020-03-09] MEDS ORDERED: magnesium hydroxide 30ml (MOM) UD suspension PO PRN (21:50)
[2020-03-09] MEDS ORDERED: magnesium Cl slow-release 64mg tablet PO PRN (21:50)
[2020-03-09] MEDS ORDERED: potassium CL 10mEq/100ml bag 100 ML IV PRN ×2 (21:50)
[2020-03-09] MEDS ORDERED: heparin 10,000 units/1 ML INJ IV ONE (21:50)
[2020-03-09] MEDS ORDERED: bisacodyl 10mg suppository rectal RC PRN (21:50)
[2020-03-09] MEDS ORDERED: temazepam 15mg capsule PO PRN (22:00)
[2020-03-09] MEDS ORDERED: hydrALAZINE 20mg/ml inj. IV PRN (22:05)
[2020-03-09] MEDS ORDERED: metoprolol tartrate 50mg tablet PO ONE (22:05)
--- NOTE | 2020-03-09 22:55 | NUR ---
Received report from Dominik BARRY from ED. Patient came up to floor via gurney. Patient transferred to bed stand by assist. Bed locked & low, call light placed within reach and educated. IV gtt going per MD order.
[2020-03-09 23:10] VITALS: BP 149/93
[2020-03-10 02:00] VITALS: BP 135/87
[2020-03-10] MEDS ORDERED: HYDROmorphone 1 mg/ml syringe IV ONE (03:50)
[2020-03-10] MEDS ORDERED: benzonatate 100mg capsule PO PRN (03:50)
--- NOTE | 2020-03-10 04:15 | NUR ---
RN IS TO DOCUMENT YES TO ALL APPLICABLE AREAS Pronouncement of : 1. Time Physician Notified:414 2. Date of :03/10/20 3. Time of : 414 4. DNR/Withdraw life support documented:Yes 5. Monitor strip has been placed on chart:Yes 6. Assessment process is of one-minute duration and includes following criteria: a) Patient is unresponsive to all stimuli: Yes b) Pupils fixed and non-reactive: Yes c) Auscultation of precordium reveals absence of heart tones: Yes d) Auscultation of lungs reveals absence of breath sounds: Yes e) Absence of blood pressure / all vital signs: Yes f) QRS complexes are not present on monitor / EKG strip: Yes g) Pacer spikes without capture: 4. Comments: Called [facility], donor network and mortuary. Addendum: 03/10/20 at 0452 by Tonia Fuentes RN wrong patient
--- NOTE | 2020-03-10 04:20 | NUR ---
Please disregard last note, wrong patient
--- NOTE | 2020-03-10 05:15 | NUR ---
PTT is 67, within therapeutic level. No change needed to rate.
[2020-03-10 06:00] VITALS: BP 131/83
[2020-03-10 06:21] LABS: BASOPHILS # (AUTO) 0.1 X10'3 (0-0.2); BASOPHILS % (AUTO) 0.9 % (0-1); EOSINOPHILS # (AUTO) 0.2 X10'3 (0-0.9); HEMATOCRIT 49.4 % (42.0-52.0); HEMOGLOBIN 16.7 g/dl (14.0-17.9); LYMPHOCYTES # (AUTO) 2.5 X10'3 (1.1-4.8); LYMPHOCYTES % (AUTO) 30.8 % (21-51); MEAN CORPUSCULAR HEMOGLOBIN 31.2 PG (27.0-31.0); MEAN CORPUSCULAR HGB CONC 33.9 g/dL (33.0-36.5); MEAN PLATELET VOLUME 9.1 FL (7.4-10.4); MONOCYTES % (AUTO) 12.2 % (2-12); NEUTROPHILS # (AUTO) 4.4 X10'3 (1.8-7.7); NEUTROPHILS % (AUTO) 54.1 % (42-75); PLATELET COUNT 266 X10'3 (140-440); RED BLOOD COUNT 5.37 X10'6 (4.70-6.10); RED CELL DISTRIBUTION WIDTH 13.3 % (11.5-14.5); WHITE BLOOD COUNT 8.2 X10'3 (4.5-11.0)
--- NOTE | 2020-03-10 06:25 | NUR ---
Problems reprioritized. Patient report given, questions answered & plan of care reviewed with Aracely BARRY.
--- NOTE | 2020-03-10 06:30 | NUR ---
RECEIVED REPORT FROM ASHA SANTOS
[2020-03-10 06:36] LABS: ALANINE AMINOTRANSFERASE 63 U/L (12-78); ALBUMIN 3.6 G/DL (3.4-5.0); ALKALINE PHOSPHATASE 84 IU/L (46-116); ANION GAP 10 (8-16); ASPARTATE AMINO TRANSFERASE 33 U/L (10-37); BILIRUBIN,TOTAL 1.1 MG/DL (0.1-1.0); BLOOD UREA NITROGEN 15 MG/DL (7-18); BUN/CREATININE RATIO 13.4 (5.4-32.0); CALCIUM 8.6 MG/DL (8.5-10.1); CHLORIDE 104 MMOL/L (99-107); CREATININE 1.12 MG/DL (0.60-1.10); GLUCOSE 107 MG/DL (70-104); PHOSPHORUS 3.5 MG/DL (2.3-4.5); POTASSIUM 3.8 MMOL/L (3.5-5.1); SODIUM 140 MMOL/L (135-145); TOTAL CARBON DIOXIDE 25.8 MMOL/L (24-32); TOTAL PROTEIN 7.1 G/DL (6.4-8.2); eGFR 69 ML/MIN
[2020-03-10] MEDS: K and/or MAG REPLACEMENT MC SCH ×2 (07:20→19:33)
[2020-03-10] MEDS: docusate sod 100mg capsule PO SCH ×2 (07:22→19:54)
[2020-03-10] MEDS ORDERED: apixaban 5mg tablet PO SCH (08:00)
[2020-03-10] MEDS: HYDROmorphone 1 mg/ml syringe IV PRN ×4 (09:41→21:55)
[2020-03-10] MEDS: furosemide 20 MG/2 ML vial IV SCH ×2 (09:44→19:55)
[2020-03-10] MEDS: apixaban 5mg tablet PO SCH ×2 (09:46→19:54)
[2020-03-10 11:00] VITALS: BP 144/95
[2020-03-10] MEDS: oxyCODONE/APAP 5-325mg tablet PO PRN ×3 (11:07→20:07)
[2020-03-10] MEDS ORDERED: furosemide 20 MG/2 ML vial IV SCH (12:55)
[2020-03-10] MEDS: nystatin 15 GM powder TP SCH ×2 (13:44→19:56)
--- NOTE | 2020-03-10 13:50 | NUR ---
scanner on computer not working at this time, checked all meds prior to admin, continue to monitor
[2020-03-10 15:00] VITALS: BP 138/85
[2020-03-10 18:00] VITALS: BP 152/94
--- NOTE | 2020-03-10 18:17 | NUR ---
gave report to ella sinclair
[2020-03-10 22:00] VITALS: BP 141/85
[2020-03-11] MEDS: oxyCODONE/APAP 5-325mg tablet PO PRN ×4 (00:12→20:30)
[2020-03-11 02:00] VITALS: BP 134/87
[2020-03-11] MEDS: HYDROmorphone 1 mg/ml syringe IV PRN ×5 (03:06→22:22)
[2020-03-11 06:00] VITALS: BP 136/97
--- NOTE | 2020-03-11 06:15 | NUR ---
Patient in room PCU 3023. I have received report from ASHA Jessica and had the opportunity to ask questions and assume patient care.
--- NOTE | 2020-03-11 06:18 | NUR ---
Problems reprioritized. Patient report given, questions answered & plan of care reviewed with ASHA GONG.
--- NOTE | 2020-03-11 06:25 | NUR ---
received report from ella sinclair
[2020-03-11] MEDS: K and/or MAG REPLACEMENT MC SCH ×2 (06:56→20:00)
[2020-03-11] MEDS: apixaban 5mg tablet PO SCH ×2 (07:04→20:30)
[2020-03-11] MEDS: docusate sod 100mg capsule PO SCH ×2 (07:04→20:30)
[2020-03-11] MEDS: nystatin 15 GM powder TP SCH ×3 (07:05→20:30)
[2020-03-11] MEDS: furosemide 20 MG/2 ML vial IV SCH ×2 (07:05→20:30)
--- NOTE | 2020-03-11 07:07 | NUR ---
Lasix inj and dilaudid inj given by ASHA Jessica
[2020-03-11 07:40] LABS: BASOPHILS # (AUTO) 0.1 X10'3 (0-0.2); BASOPHILS % (AUTO) 0.7 % (0-1); EOSINOPHILS # (AUTO) 0.2 X10'3 (0-0.9); EOSINOPHILS % (AUTO) 2.1 % (0-6); HEMATOCRIT 51.4 % (42.0-52.0); HEMOGLOBIN 17.5 g/dl (14.0-17.9); LYMPHOCYTES # (AUTO) 1.5 X10'3 (1.1-4.8); LYMPHOCYTES % (AUTO) 18.9 % (21-51); MEAN CORPUSCULAR HEMOGLOBIN 31.4 PG (27.0-31.0); MEAN CORPUSCULAR VOLUME 92.3 FL (78-98); MEAN PLATELET VOLUME 8.7 FL (7.4-10.4); MONOCYTES # (AUTO) 0.8 X10'3 (0-0.9); MONOCYTES % (AUTO) 10.7 % (2-12); NEUTROPHILS # (AUTO) 5.2 X10'3 (1.8-7.7); NEUTROPHILS % (AUTO) 67.6 % (42-75); PLATELET COUNT 235 X10'3 (140-440); RED BLOOD COUNT 5.57 X10'6 (4.70-6.10); RED CELL DISTRIBUTION WIDTH 12.9 % (11.5-14.5); WHITE BLOOD COUNT 7.7 X10'3 (4.5-11.0)
[2020-03-11 08:27] LABS: ALANINE AMINOTRANSFERASE 67 U/L (12-78); ALBUMIN 3.7 G/DL (3.4-5.0); ALKALINE PHOSPHATASE 88 IU/L (46-116); ANION GAP 9 (8-16); ASPARTATE AMINO TRANSFERASE 42 U/L (10-37); BLOOD UREA NITROGEN 14 MG/DL (7-18); BUN/CREATININE RATIO 12.5 (5.4-32.0); CALCIUM 8.5 MG/DL (8.5-10.1); CHLORIDE 103 MMOL/L (99-107); CREATININE 1.12 MG/DL (0.60-1.10); GLUCOSE 100 MG/DL (70-104); PHOSPHORUS 3.8 MG/DL (2.3-4.5); POTASSIUM 3.5 MMOL/L (3.5-5.1); SODIUM 140 MMOL/L (135-145); TOTAL PROTEIN 7.4 G/DL (6.4-8.2); eGFR 69 ML/MIN
[2020-03-11 11:00] VITALS: BP 156/100
[2020-03-11 15:00] VITALS: BP 141/87
--- NOTE | 2020-03-11 17:51 | NUR ---
Problems reprioritized. Patient report given, questions answered & plan of care reviewed with ASHA Jessica.
[2020-03-11 18:00] VITALS: BP 168/83
--- NOTE | 2020-03-11 18:19 | NUR ---
gave report to ella sinclair
--- NOTE | 2020-03-11 18:30 | NUR ---
Patient in room PCU 3023. I have received report from ASHA GONG and had the opportunity to ask questions and assume patient care.
[2020-03-11 22:00] VITALS: BP 150/92
[2020-03-12] MEDS: oxyCODONE/APAP 5-325mg tablet PO PRN (01:38)
[2020-03-12 02:00] VITALS: BP 126/84
[2020-03-12] MEDS: HYDROmorphone 1 mg/ml syringe IV PRN ×2 (04:03→08:43)
[2020-03-12 05:49] LABS: BASOPHILS # (AUTO) 0.1 X10'3 (0-0.2); BASOPHILS % (AUTO) 0.7 % (0-1); EOSINOPHILS # (AUTO) 0.2 X10'3 (0-0.9); HEMOGLOBIN 17.7 g/dl (14.0-17.9); LYMPHOCYTES # (AUTO) 1.8 X10'3 (1.1-4.8); LYMPHOCYTES % (AUTO) 23.4 % (21-51); MEAN CORPUSCULAR HEMOGLOBIN 31.9 PG (27.0-31.0); MEAN CORPUSCULAR HGB CONC 34.6 g/dL (33.0-36.5); MEAN CORPUSCULAR VOLUME 92.2 FL (78-98); MEAN PLATELET VOLUME 9.1 FL (7.4-10.4); MONOCYTES # (AUTO) 0.9 X10'3 (0-0.9); MONOCYTES % (AUTO) 12.3 % (2-12); NEUTROPHILS # (AUTO) 4.6 X10'3 (1.8-7.7); NEUTROPHILS % (AUTO) 60.6 % (42-75); PLATELET COUNT 258 X10'3 (140-440); RED BLOOD COUNT 5.53 X10'6 (4.70-6.10); WHITE BLOOD COUNT 7.5 X10'3 (4.5-11.0)
[2020-03-12 06:00] VITALS: BP 134/79
[2020-03-12 06:04] LABS: ALANINE AMINOTRANSFERASE 67 U/L (12-78); ALBUMIN 3.8 G/DL (3.4-5.0); ALKALINE PHOSPHATASE 92 IU/L (46-116); ANION GAP 10 (8-16); ASPARTATE AMINO TRANSFERASE 35 U/L (10-37); BILIRUBIN,TOTAL 1.1 MG/DL (0.1-1.0); BLOOD UREA NITROGEN 14 MG/DL (7-18); BUN/CREATININE RATIO 11.7 (5.4-32.0); CALCIUM 8.8 MG/DL (8.5-10.1); CHLORIDE 101 MMOL/L (99-107); GLUCOSE 102 MG/DL (70-104); MAGNESIUM 2.1 MG/DL (1.5-2.4); PHOSPHORUS 3.7 MG/DL (2.3-4.5); POTASSIUM 3.3 MMOL/L (3.5-5.1); SODIUM 137 MMOL/L (135-145); TOTAL CARBON DIOXIDE 26.3 MMOL/L (24-32); TOTAL PROTEIN 7.5 G/DL (6.4-8.2); eGFR 64 ML/MIN
--- NOTE | 2020-03-12 06:37 | NUR ---
Problems reprioritized. Patient report given, questions answered & plan of care reviewed with ASHA HAYNES.
--- NOTE | 2020-03-12 06:55 | NUR ---
Patient in room PCU 3021O. I have received report from ASHA YA and had the opportunity to ask questions and assume patient care.
[2020-03-12] MEDS: K and/or MAG REPLACEMENT MC SCH (07:16)
[2020-03-12] MEDS: docusate sod 100mg capsule PO SCH (08:32)
[2020-03-12] MEDS: apixaban 5mg tablet PO SCH (08:32)
[2020-03-12] MEDS: furosemide 20 MG/2 ML vial IV SCH (08:38)
[2020-03-12] MEDS: nystatin 15 GM powder TP SCH (08:48)
[2020-03-12] MEDS ORDERED: FURO-150 PO (09:12)
[2020-03-12] MEDS ORDERED: APIX5TAB3 PO (09:12)
[2020-03-12 11:05] VITALS: BP 145/82
--- NOTE | 2020-03-12 11:29 | NUR ---
DC INSTRUCTIONS GIVEN TO PT, QUESTIONS ANSWERED. IV REMOVED, NO COMPLICATIONS. TELE REMOVED. PT WHEELED TO PRIVATE VEHICLE IN STABLE CONDITION WITH ALL PERSONAL BELONGINGS
== END 2020-03-12 11:27 | disposition home or self-care (01) | DRG 175 ==
LOC: ER 18:11 → ED HOLD 21:48 → PCU 3S 22:57
PROVIDERS: ADMIT Family Medicine; ATTEND Internal Medicine
PROC: B32T1ZZ Computerized Tomography (CT Scan) of Left Pulmonary Artery using Low Osmolar Contrast (ICD-10-PCS; principal; 2020-03-09)
PROC: B32S1ZZ Computerized Tomography (CT Scan) of Right Pulmonary Artery using Low Osmolar Contrast (ICD-10-PCS; 2020-03-09)
DX: I26.09 Other pulmonary embolism with acute cor pulmonale (principal); Z86.711 Personal history of pulmonary embolism; Z86.718 Personal history of other venous thrombosis and embolism; Z79.899 Other long term (current) drug therapy; I10 Essential (primary) hypertension; Z79.01 Long term (current) use of anticoagulants; Z20.828 Contact with and (suspected) exposure to other viral communicable diseases
CPT/HCPCS: 36415; 71045; 71275; 80053; 83735; 83880; 84100; 84484; 85025; 85730; 87081; 87635; 93005; 93306; 96374; 99285; G0378; J1170; J1644; J1940; J2270; Q9967

== ENCOUNTER 2021-01-28 13:22 | Inpatient (IN) | payer BC ==
[~2021-01-28] VITALS: Ht 198.1 cm; Wt 154.6 kg
[~2021-01-28 13:22] MED LIST changes: -DILT180C64 PO; -ENOX100D5 SQ; -FOLI1TAB16 PO; -LISI-604 PO; +LISI-790 PO; -THI100T PO
[2021-01-28] MEDS ORDERED: morphine 4 MG/ML inj SYRINge IV ONE (14:10)
[2021-01-28 14:13] LABS: BASOPHILS # (AUTO) 0.1 X10'3 (0-0.2); EOSINOPHILS # (AUTO) 0.1 X10'3 (0-0.9); EOSINOPHILS % (AUTO) 1.7 % (0-6); HEMATOCRIT 54.6 % (42.0-52.0); LYMPHOCYTES # (AUTO) 2.2 X10'3 (1.1-4.8); LYMPHOCYTES % (AUTO) 28.2 % (21-51); MEAN CORPUSCULAR HEMOGLOBIN 31.2 PG (27.0-31.0); MEAN CORPUSCULAR HGB CONC 33.9 g/dL (33.0-36.5); MEAN CORPUSCULAR VOLUME 91.9 FL (78-98); MEAN PLATELET VOLUME 8.6 FL (7.4-10.4); MONOCYTES # (AUTO) 0.8 X10'3 (0-0.9); MONOCYTES % (AUTO) 9.8 % (2-12); NEUTROPHILS # (AUTO) 4.7 X10'3 (1.8-7.7); NEUTROPHILS % (AUTO) 59.3 % (42-75); PLATELET COUNT 290 X10'3 (140-440); RED BLOOD COUNT 5.94 X10'6 (4.70-6.10); RED CELL DISTRIBUTION WIDTH 12.8 % (11.5-14.5); WHITE BLOOD COUNT 7.8 X10'3 (4.5-11.0)
[2021-01-28 14:18] LABS: HEMOGLOBIN 18.5 g/dl (14.0-17.9)
[2021-01-28 14:30] LABS: ALANINE AMINOTRANSFERASE 38 U/L (12-78); ALBUMIN 3.7 G/DL (3.4-5.0); ALBUMIN/GLOBULIN RATIO 0.9 (1.1-1.5); ALKALINE PHOSPHATASE 101 IU/L (46-116); ANION GAP 11 (8-16); ASPARTATE AMINO TRANSFERASE 27 U/L (10-37); BILIRUBIN,TOTAL 0.7 MG/DL (0.1-1.0); BLOOD UREA NITROGEN 14 MG/DL (7-18); BUN/CREATININE RATIO 13.3 (5.4-32.0); CALCIUM 8.6 MG/DL (8.5-10.1); CHLORIDE 102 MMOL/L (99-107); CREATININE 1.05 MG/DL (0.60-1.10); GLUCOSE 99 MG/DL (70-104); POTASSIUM 4.8 MMOL/L (3.5-5.1); SODIUM 137 MMOL/L (135-145); TOTAL CARBON DIOXIDE 24.3 MMOL/L (24-32); TOTAL PROTEIN 7.7 G/DL (6.4-8.2); eGFR 74 ML/MIN
[2021-01-28] MEDS ORDERED: iohexol 350MG/ML 100ml bottle IV ONE (14:30)
--- NOTE | 2021-01-28 14:39 | NUR ---
PT TO CT VIA GABRIEL WITH MINE ANALYST.
[2021-01-28] MEDS ORDERED: heparin 10,000 units/1 ML INJ IV ONE (15:05)
[2021-01-28] MEDS ORDERED: heparin 10,000 units/1 ML INJ IV PRN ×2 (15:10→16:45)
[2021-01-28] MEDS ORDERED: HYDROmorphone 1 mg/ml syringe IV ONE (15:15)
[2021-01-28] MEDS: heparin 25,000 UNIT/250ml bag 250 ML IV SCH ×2 (15:20→23:57)
[2021-01-28 15:23] LABS: PARTIAL THROMBOPLASTIN TIME 29 SECONDS (22-32)
[2021-01-28] MEDS ORDERED: CARI-433 PO (16:34)
[2021-01-28] MEDS ORDERED: SULF1TAB45 PO (16:34)
[2021-01-28] MEDS ORDERED: APIX5TAB3 PO (16:39)
[2021-01-28] MEDS ORDERED: magnesium Cl slow-release 64mg tablet PO PRN (16:45)
[2021-01-28] MEDS ORDERED: magnesium 4gm in 100ml NS 100 ML IV PRN (16:45)
[2021-01-28] MEDS ORDERED: HYDROcodone/acetaminophen 5mg/325mg tablet PO PRN (16:45)
[2021-01-28] MEDS ORDERED: ondansetron/PF 4mg/2ml inj IV PRN (16:45)
[2021-01-28] MEDS ORDERED: HYDROcodone/acetaminophen 10/325mg tab PO PRN (16:45)
[2021-01-28] MEDS ORDERED: magnesium hydroxide 30ml (MOM) UD suspension PO PRN (16:45)
[2021-01-28] MEDS ORDERED: magnesium 2GM in 50ml NS 50 ML IV PRN (16:45)
[2021-01-28] MEDS ORDERED: potassium Cl 40MEQ/1/2NS 520ml 520 ML IV PRN ×2 (16:45)
[2021-01-28] MEDS ORDERED: acetaminophen 325mg tablet PO PRN ×2 (16:45)
[2021-01-28] MEDS ORDERED: heparin 25,000 UNIT/250ml bag 250 ML IV SCH (16:45)
[2021-01-28] MEDS ORDERED: potassium Cl 20 mEq SR tablet PO PRN ×2 (16:45)
[2021-01-28] MEDS ORDERED: mag hydrox/Alum hydrox/simeth 30ml oral suspension PO PRN (16:45)
[2021-01-28] MEDS: normal saline 1000ml 1,000 ML IV SCH ×2 (16:58→20:14)
--- NOTE | 2021-01-28 17:55 | NUR ---
DR RUTH AT BEDSIDE
[2021-01-28] MEDS ORDERED: albuterol 2.5 MG/3 ML nebule NEB PRN (18:35)
[2021-01-28] MEDS ORDERED: guaiFENesin/DM 10ml UD oral syrup PO PRN (18:35)
--- NOTE | 2021-01-28 19:11 | NUR ---
Received report from Shira BARRY in ER. Pt arrived on the unit via gurney and was able to slide himself over to his bed with minimal assitance. Pt was on 2L via nasal cannula. 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 VSS with no signs of distress. Will continue to monitor.
[2021-01-28] MEDS: K and/or MAG REPLACEMENT MC SCH (20:00)
[2021-01-28] MEDS: HYDROmorphone inj. 0.5 MG/0.5 ML DISP.SYRIN IV PRN (20:23)
[2021-01-28 20:25] VITALS: BP 167/112
[2021-01-28] MEDS ORDERED: temazepam 15mg capsule PO PRN (21:00)
[2021-01-28] MEDS ORDERED: oxyCODONE/APAP 5-325mg tablet PO PRN (21:10)
[2021-01-28 22:00] VITALS: BP 168/101
[2021-01-29] MEDS: HYDROmorphone inj. 0.5 MG/0.5 ML DISP.SYRIN IV PRN ×5 (00:44→20:26)
[2021-01-29] MEDS: heparin 25,000 UNIT/250ml bag 250 ML IV SCH ×2 (02:14→13:24)
[2021-01-29] MEDS: normal saline 1000ml 1,000 ML IV SCH ×2 (02:15→22:45)
[2021-01-29 06:00] VITALS: BP 147/88
--- NOTE | 2021-01-29 06:34 | NUR ---
Problems reprioritized. Patient report given, questions answered & plan of care reviewed with Kelle BARRY.
[2021-01-29] MEDS: oxyCODONE/APAP 10/325mg tablet PO PRN ×3 (06:39→18:48)
--- NOTE | 2021-01-29 06:49 | NUR ---
Patient in room ORTHO 4024B. I have received report from ASHA HAYNES and had the opportunity to ask questions and assume patient care.
--- NOTE | 2021-01-29 06:52 | NUR ---
Patient in room ORTHO 4024B. I have received report from ASHA Nina and had the opportunity to ask questions and assume patient care. Eunice Archibald RN will provide primary care. I will monitor all care and assist when needed.
[2021-01-29] MEDS: K and/or MAG REPLACEMENT MC SCH ×2 (08:00→20:00)
[2021-01-29 08:08] LABS: BASOPHILS % (AUTO) 0.5 % (0-1); EOSINOPHILS # (AUTO) 0.1 X10'3 (0-0.9); EOSINOPHILS % (AUTO) 0.9 % (0-6); HEMATOCRIT 51.1 % (42.0-52.0); HEMOGLOBIN 17.2 g/dl (14.0-17.9); LYMPHOCYTES # (AUTO) 1.6 X10'3 (1.1-4.8); LYMPHOCYTES % (AUTO) 18.2 % (21-51); MEAN CORPUSCULAR HEMOGLOBIN 31.3 PG (27.0-31.0); MEAN CORPUSCULAR HGB CONC 33.7 g/dL (33.0-36.5); MEAN CORPUSCULAR VOLUME 92.8 FL (78-98); MEAN PLATELET VOLUME 8.8 FL (7.4-10.4); MONOCYTES # (AUTO) 0.9 X10'3 (0-0.9); MONOCYTES % (AUTO) 10.7 % (2-12); NEUTROPHILS # (AUTO) 6.1 X10'3 (1.8-7.7); NEUTROPHILS % (AUTO) 69.7 % (42-75); PLATELET COUNT 263 X10'3 (140-440); RED BLOOD COUNT 5.51 X10'6 (4.70-6.10); RED CELL DISTRIBUTION WIDTH 13.2 % (11.5-14.5); WHITE BLOOD COUNT 8.7 X10'3 (4.5-11.0)
[2021-01-29 08:26] LABS: ALANINE AMINOTRANSFERASE 39 U/L (12-78); ALBUMIN 3.4 G/DL (3.4-5.0); ALBUMIN/GLOBULIN RATIO 0.9 (1.1-1.5); ALKALINE PHOSPHATASE 94 IU/L (46-116); ANION GAP 10 (8-16); ASPARTATE AMINO TRANSFERASE 26 U/L (10-37); BILIRUBIN,TOTAL 0.7 MG/DL (0.1-1.0); BLOOD UREA NITROGEN 14 MG/DL (7-18); BUN/CREATININE RATIO 15.7 (5.4-32.0); CALCIUM 8.3 MG/DL (8.5-10.1); CHLORIDE 104 MMOL/L (99-107); CHOL/HDL RATIO 4.7 (0.00-4.99); CHOLESTEROL 249 MG/DL (0-200); CREATININE 0.89 MG/DL (0.60-1.10); GLUCOSE 108 MG/DL (70-104); HDL CHOLESTEROL 53 MG/DL (35-60); LDL CHOLESTEROL 174 MG/DL (50-100); SODIUM 139 MMOL/L (135-145); TOTAL CARBON DIOXIDE 25.2 MMOL/L (24-32); TOTAL PROTEIN 7.1 G/DL (6.4-8.2); TRIGLYCERIDES 134 MG/DL (20-135); eGFR 90 ML/MIN
[2021-01-29 10:00] VITALS: BP 154/94
--- NOTE | 2021-01-29 11:01 | NUR ---
RECEIVED URINE FROM PT VIA CLEAN URINAL. URINE WAS SENT DOWN FOR TOX SCREEN AND UA.
[2021-01-29 11:16] LABS: CLARITY,URINE CLEAR (Clear); GLUCOSE, URINE NEGATIVE (Neg); KETONES,URINE NEGATIVE (Neg); LEUKOCYTE ESTERASE ,URINE NEGATIVE (Neg); NITRITES, URINE NEGATIVE (Neg); OCCULT BLOOD,URINE TRACE-INTACT (Neg); PH,URINE 5.5 (4.8-8.0); PROTEIN,URINE NEGATIVE (Neg)
[2021-01-29 11:24] LABS: UA COLLECTION TYPE URINAL
[2021-01-29 11:25] LABS: COLOR,URINE DARK YELLOW (Yellow)
[2021-01-29 11:28] LABS: URINE AMPHETAMINE SCREEN NEGATIVE (Neg); URINE BARBITUATE SCREEN NEGATIVE (Neg); URINE BENZODIAZEPINES SCREEN NEGATIVE (Neg); URINE CANNABINOID SCREEN NEGATIVE (Neg); URINE COCAINE SCREEN NEGATIVE (Neg); URINE METHADONE SCREEN NEGATIVE (Neg); URINE OPIATE SCREEN POSITIVE (Neg); URINE PHENCYCLIDINE SCREEN NEGATIVE (Neg); WBC,URINE 0-4 /HPF (0-4)
[2021-01-29 11:29] LABS: BACTERIA,URINE FEW /HPF (Neg); MUCUS STRANDS MANY /LPF (Neg); RBC,URINE 0-2 /HPF (0-2); SQUAMOUS EPITHELIAL CELL,UR FEW /LPF (FEW)
--- NOTE | 2021-01-29 12:55 | NUR ---
No BM observed by student, pt stated last BM one day prior Addendum: 01/29/21 at 1302 by Adelfo PORTER Amended: Links added.
--- NOTE | 2021-01-29 12:56 | NUR ---
no urine present at time of assessment, pt states normal voiding to urinal, standing at bedside Addendum: 01/29/21 at 1302 by Adelfo PORTER Amended: Links added.
[2021-01-29 18:00] VITALS: BP 154/100
--- NOTE | 2021-01-29 18:11 | NUR ---
Problems reprioritized. Patient report given, questions answered & plan of care reviewed with ASHA SINGLETON.
--- NOTE | 2021-01-29 18:13 | NUR ---
ORIENTEE documentation: I have reviewed and agree with all interventions, assessments performed and documented by ASHA MESSINA.
[2021-01-29 20:30] VITALS: BP 173/106
--- NOTE | 2021-01-29 20:30 | NUR ---
HR converted back to SR after dilaudid given, pt still having chest discomfort. will do ekg.
--- NOTE | 2021-01-29 21:30 | NUR ---
DR. Gomez reviewed ekg which was unchanged pt feeling better.
[2021-01-29 22:00] VITALS: BP 154/101
[2021-01-29] MEDS ORDERED: hydrALAZINE 20mg/ml inj. IV PRN (22:05)
[2021-01-30] MEDS: HYDROmorphone inj. 0.5 MG/0.5 ML DISP.SYRIN IV PRN ×3 (00:47→10:33)
[2021-01-30] MEDS: heparin 25,000 UNIT/250ml bag 250 ML IV SCH (01:07)
[2021-01-30] MEDS: oxyCODONE/APAP 10/325mg tablet PO PRN ×3 (01:20→13:02)
[2021-01-30 03:16] LABS: BASOPHILS # (AUTO) 0.1 X10'3 (0-0.2); BASOPHILS % (AUTO) 0.8 % (0-1); EOSINOPHILS # (AUTO) 0.1 X10'3 (0-0.9); EOSINOPHILS % (AUTO) 1.1 % (0-6); HEMATOCRIT 50.3 % (42.0-52.0); HEMOGLOBIN 17.2 g/dl (14.0-17.9); LYMPHOCYTES # (AUTO) 1.6 X10'3 (1.1-4.8); LYMPHOCYTES % (AUTO) 18.4 % (21-51); MEAN CORPUSCULAR HEMOGLOBIN 31.5 PG (27.0-31.0); MEAN CORPUSCULAR HGB CONC 34.2 g/dL (33.0-36.5); MEAN CORPUSCULAR VOLUME 92.1 FL (78-98); MEAN PLATELET VOLUME 8.9 FL (7.4-10.4); MONOCYTES # (AUTO) 0.9 X10'3 (0-0.9); MONOCYTES % (AUTO) 10.2 % (2-12); NEUTROPHILS # (AUTO) 5.9 X10'3 (1.8-7.7); NEUTROPHILS % (AUTO) 69.5 % (42-75); PLATELET COUNT 244 X10'3 (140-440); RED BLOOD COUNT 5.46 X10'6 (4.70-6.10); RED CELL DISTRIBUTION WIDTH 13.1 % (11.5-14.5); WHITE BLOOD COUNT 8.5 X10'3 (4.5-11.0)
[2021-01-30 03:24] LABS: ALANINE AMINOTRANSFERASE 40 U/L (12-78); ALBUMIN 3.3 G/DL (3.4-5.0); ALBUMIN/GLOBULIN RATIO 0.9 (1.1-1.5); ALKALINE PHOSPHATASE 94 IU/L (46-116); ANION GAP 9 (8-16); ASPARTATE AMINO TRANSFERASE 22 U/L (10-37); BILIRUBIN,TOTAL 0.6 MG/DL (0.1-1.0); BLOOD UREA NITROGEN 12 MG/DL (7-18); CALCIUM 8.2 MG/DL (8.5-10.1); CHLORIDE 103 MMOL/L (99-107); GLUCOSE 104 MG/DL (70-104); POTASSIUM 4.3 MMOL/L (3.5-5.1); SODIUM 137 MMOL/L (135-145); TOTAL CARBON DIOXIDE 24.8 MMOL/L (24-32); TOTAL PROTEIN 7.1 G/DL (6.4-8.2); eGFR > 90 ML/MIN
[2021-01-30 06:00] VITALS: BP 134/94
--- NOTE | 2021-01-30 06:30 | NUR ---
RECEIVED REPORT FROM ASHA SINGLETON
[2021-01-30] MEDS: K and/or MAG REPLACEMENT MC SCH (08:00)
[2021-01-30 08:19] VITALS: BP 150/97
--- NOTE | 2021-01-30 08:26 | NUR ---
Patient reports chest pain and leg pain if better since last night. Patient describes pain in leg as burning and pain in chest as pressure /10. Pain reported to the primary nurse. Addendum: 01/30/21 at 0828 by Anmol PORTER Amended: Links added.
[2021-01-30] MEDS: normal saline 1000ml 1,000 ML IV SCH (09:59)
[2021-01-30 10:00] VITALS: BP 160/92
--- NOTE | 2021-01-30 13:39 | NUR ---
PT D/C WITH INSTRUCTIONS, UNDERSTANDING OF INSTRUCTIONS AND W/ALL BELONGINGS IN WHEELCHAIR TO PRIVATE VEHICLE TO GO HOME AND F/U W/PCP
--- NOTE | 2021-01-31 14:41 | NUR ---
CASE MANAGEMENT DISCHARGE FOLLOW UP: T/c to pt, no answer, left message requesting callback. Addendum: 01/31/21 at 1612 by Opal Nielsen RN [id number] Received return call from pt. Pt reports that he is still having pain in his upper leg that he is able to keep under control with left over [place], states leg is still swollen but back to baseline; denies CP, SOB. Verbalizes understanding of s/sx requiring further evaluation/emergent assistance. Verbalizes understanding of medications, states that due to when he is able to fill next Rx of Eliquis, he may have a day without coverage, advised him to notify his PCP, he verbalizes understanding. Verbalizes compliance with MD discharge instructions. Verbalizes understanding of the importance in making/keeping follow-up appointments, will call on Wednesday. States no further questions/concerns at this time.
== END 2021-01-30 13:20 | disposition home or self-care (01) | DRG 301 ==
LOC: ER 13:23 → ED HOLD 16:42 → ORTHO 4S 19:56
PROVIDERS: ADMIT Family Medicine; ATTEND Family Medicine
PROC: B32T1ZZ Computerized Tomography (CT Scan) of Left Pulmonary Artery using Low Osmolar Contrast (ICD-10-PCS; principal; 2021-01-28)
PROC: B3201ZZ Computerized Tomography (CT Scan) of Thoracic Aorta using Low Osmolar Contrast (ICD-10-PCS; 2021-01-28)
PROC: B32S1ZZ Computerized Tomography (CT Scan) of Right Pulmonary Artery using Low Osmolar Contrast (ICD-10-PCS; 2021-01-28)
DX: I82.411 Acute embolism and thrombosis of right femoral vein (principal); G89.29 Other chronic pain; M54.9 Dorsalgia, unspecified; R09.02 Hypoxemia; E66.01 Morbid (severe) obesity due to excess calories; Z20.822 Contact with and (suspected) exposure to COVID-19; I10 Essential (primary) hypertension; J30.2 Other seasonal allergic rhinitis; Z79.01 Long term (current) use of anticoagulants; Z86.711 Personal history of pulmonary embolism; Z68.39 Body mass index [BMI] 39.0-39.9, adult; Z79.899 Other long term (current) drug therapy
CPT/HCPCS: 36415; 71045; 71275; 80053; 80061; 80305; 81001; 83735; 83880; 84443; 84484; 85025; 85730; 87081; 87635; 93005; 93971; 94760; 96374; 96375; 99291; C9803; G0378; J1170; J1644; J2270; J7030; Q9967

== ENCOUNTER 2023-09-30 10:26 | Inpatient (IN) | payer BC ==
[2023-09-30] VITALS (7 sets, daily range): BP systolic 151; BP diastolic 96; PULSE 68–96; RESP 16–24; TEMP 97.6; O2SAT 92–98
[~2023-09-30] VITALS: Ht 198.1 cm; Wt 159.1 kg
[~2023-09-30 10:26] MED LIST changes: +ATOR20TA66 PO; +HYDR-3972 PO; -LISI-790 PO
[2023-09-30] MEDS ORDERED: APIX5TAB3 PO (11:33)
[2023-09-30 11:54] LABS: ALANINE AMINOTRANSFERASE 35 U/L (12-78); ALBUMIN 3.6 G/DL (3.4-5.0); ALBUMIN/GLOBULIN RATIO 0.9 (1.1-1.5); ALKALINE PHOSPHATASE 74 IU/L (46-116); ANION GAP 10 (8-16); ASPARTATE AMINO TRANSFERASE 24 U/L (10-37); BILIRUBIN,TOTAL 0.6 MG/DL (0.1-1.0); BLOOD UREA NITROGEN 15 MG/DL (7-18); BUN/CREATININE RATIO 16.9 (10.0-20.0); CHLORIDE 105 MMOL/L (99-107); CREATININE 0.89 MG/DL (0.60-1.10); GLUCOSE 103 MG/DL (70-104); MAGNESIUM 2.1 MG/DL (1.5-2.4); POTASSIUM 3.8 MMOL/L (3.5-5.1); SODIUM 137 MMOL/L (135-145); TOTAL CARBON DIOXIDE 22.4 MMOL/L (24-32); TOTAL PROTEIN 7.7 G/DL (6.4-8.2); eCRCL 124 ML/MIN; eGFR 89 ML/MIN
[2023-09-30] MEDS ORDERED: ondansetron/PF 4mg/2ml inj IV STA (12:08)
[2023-09-30] MEDS ORDERED: HYDROmorphone 1 mg/ml syringe IV STA (12:08)
[2023-09-30] MEDS ORDERED: ipratropium 0.5 MG/2.5ML nebule IH ONE (12:10)
[2023-09-30] MEDS ORDERED: albuterol 2.5 MG/3 ML nebule NEB ONE (12:10)
[2023-09-30 12:17] LABS: PRO BRAIN NATRIURETIC PEPTIDE 60 PG/ML (0-125)
[2023-09-30 12:32] LABS: BASOPHILS # (AUTO) 0.1 X10'3 (0-0.2); BASOPHILS % (AUTO) 1.1 % (0-1); EOSINOPHILS # (AUTO) 0.2 X10'3 (0-0.9); EOSINOPHILS % (AUTO) 1.9 % (0-6); HEMATOCRIT 54.6 % (42.0-52.0); LYMPHOCYTES # (AUTO) 1.9 X10'3 (1.1-4.8); LYMPHOCYTES % (AUTO) 22.9 % (21-51); MEAN CORPUSCULAR HEMOGLOBIN 31.3 PG (27.0-31.0); MEAN CORPUSCULAR HGB CONC 34.4 g/dL (33.0-36.5); MEAN PLATELET VOLUME 8.9 FL (7.4-10.4); MONOCYTES # (AUTO) 0.7 X10'3 (0-0.9); MONOCYTES % (AUTO) 8.3 % (2-12); NEUTROPHILS # (AUTO) 5.4 X10'3 (1.8-7.7); NEUTROPHILS % (AUTO) 65.8 % (42-75); PLATELET COUNT 287 X10'3 (140-440); RED CELL DISTRIBUTION WIDTH 13.3 % (11.5-14.5); WHITE BLOOD COUNT 8.2 X10'3 (4.5-11.0)
[2023-09-30 12:35] LABS: HEMOGLOBIN 18.8 g/dl (14.0-17.9)
[2023-09-30] MEDS ORDERED: potassium Cl 40MEQ/1/2NS 520ml 520 ML IV PRN (13:15)
[2023-09-30] MEDS ORDERED: potassium Cl 20 mEq SR tablet PO PRN ×2 (13:15)
[2023-09-30] MEDS ORDERED: ondansetron/PF 4mg/2ml inj IV PRN (13:15)
[2023-09-30] MEDS ORDERED: HYDROcodone/acetaminophen 5mg/325mg tablet PO PRN ×2 (13:15→18:30)
[2023-09-30] MEDS ORDERED: magnesium 4gm in 100ml NS 100 ML IV PRN (13:15)
[2023-09-30] MEDS ORDERED: acetaminophen 325mg tablet PO PRN ×2 (13:15)
[2023-09-30] MEDS ORDERED: normal saline 1000ml 1,000 ML IV SCH (13:15)
[2023-09-30] MEDS ORDERED: magnesium 2GM in 50ml NS 50 ML IV PRN (13:15)
[2023-09-30] MEDS ORDERED: magnesium Cl slow-release 64mg tablet PO PRN (13:15)
[2023-09-30] MEDS ORDERED: iohexol 350MG/ML 100ml bottle IV ONE (14:13)
[2023-09-30 14:27] LABS: D-DIMER < 0.19 MG/L FEU (0-0.50)
[2023-09-30] MEDS: CefTRIAXone 2gm/D5W 50ml BAG 50 ML IV SCH (14:31)
[2023-09-30] MEDS: labetalol 100mg tablet PO SCH ×2 (14:31→21:57)
[2023-09-30] MEDS: losartan 50mg tablet PO SCH (14:35)
[2023-09-30] MEDS: morphine 2 MG/ML inj. syringe IV PRN ×2 (15:25→18:10)
[2023-09-30] MEDS: albuterol 2.5 MG/3 ML nebule NEB SCH ×3 (16:00→22:40)
[2023-09-30] MEDS ORDERED: morphine 2 MG/ML inj. syringe IV PRN (18:30)
[2023-09-30] MEDS ORDERED: enoxaparin 40mg/0.4ml syringe SQ SCH (20:00)
[2023-09-30] MEDS: methylPREDNISolone sod succ 125mg/2ml vial IV SCH (21:55)
[2023-09-30] MEDS: pantoprazole 40mg Tablet.DR PO SCH (23:43)
[2023-09-30] MEDS: HYDROmorphone inj. 0.5 MG/0.5 ML DISP.SYRIN IV PRN (23:45)
[2023-10-01] VITALS (17 sets, daily range): BP systolic 104–146; BP diastolic 37–81; PULSE 64–91; RESP 16–22; TEMP 97.6–98.2; O2SAT 89–94
[2023-10-01] MEDS: albuterol 2.5 MG/3 ML nebule NEB SCH ×5 (03:39→14:55)
[2023-10-01] MEDS: HYDROmorphone inj. 0.5 MG/0.5 ML DISP.SYRIN IV PRN ×4 (04:21→16:30)
[2023-10-01] MEDS: methylPREDNISolone sod succ 125mg/2ml vial IV SCH (07:49)
[2023-10-01] MEDS: pantoprazole 40mg Tablet.DR PO SCH (07:49)
[2023-10-01] MEDS: labetalol 100mg tablet PO SCH (07:49)
[2023-10-01] MEDS: losartan 50mg tablet PO SCH (07:52)
[2023-10-01] MEDS ORDERED: apixaban 5mg tablet PO SCH (08:00)
[2023-10-01] MEDS ORDERED: FLU VACC QS2023-24(6MOS UP)/PF 60 MCG/0.5 ML SYRINGE IMVAC ONE (08:00)
[2023-10-01 08:03] LABS: BASOPHILS % (AUTO) 0.4 % (0-1); EOSINOPHILS % (AUTO) 0 % (0-6); HEMATOCRIT 53.4 % (42.0-52.0); LYMPHOCYTES # (AUTO) 0.9 X10'3 (1.1-4.8); LYMPHOCYTES % (AUTO) 9.7 % (21-51); MEAN CORPUSCULAR HEMOGLOBIN 31.2 PG (27.0-31.0); MEAN CORPUSCULAR HGB CONC 34.1 g/dL (33.0-36.5); MEAN CORPUSCULAR VOLUME 91.4 FL (78-98); MONOCYTES # (AUTO) 0.2 X10'3 (0-0.9); MONOCYTES % (AUTO) 1.8 % (2-12); NEUTROPHILS # (AUTO) 7.9 X10'3 (1.8-7.7); NEUTROPHILS % (AUTO) 88.1 % (42-75); PLATELET COUNT 289 X10'3 (140-440); RED BLOOD COUNT 5.84 X10'6 (4.70-6.10); RED CELL DISTRIBUTION WIDTH 13.3 % (11.5-14.5)
[2023-10-01 08:22] LABS: HEMOGLOBIN 18.2 g/dl (14.0-17.9)
[2023-10-01 08:30] LABS: ALANINE AMINOTRANSFERASE 37 U/L (12-78); ALBUMIN 3.7 G/DL (3.4-5.0); ALBUMIN/GLOBULIN RATIO 0.9 (1.1-1.5); ALKALINE PHOSPHATASE 77 IU/L (46-116); ANION GAP 12 (8-16); ASPARTATE AMINO TRANSFERASE 19 U/L (10-37); BILIRUBIN,TOTAL 0.7 MG/DL (0.1-1.0); BLOOD UREA NITROGEN 17 MG/DL (7-18); BUN/CREATININE RATIO 14.5 (10.0-20.0); CALCIUM 9.4 MG/DL (8.5-10.1); CHLORIDE 101 MMOL/L (99-107); CREATININE 1.17 MG/DL (0.60-1.10); GLUCOSE 146 MG/DL (70-104); POTASSIUM 4.5 MMOL/L (3.5-5.1); SODIUM 135 MMOL/L (135-145); TOTAL CARBON DIOXIDE 22.5 MMOL/L (24-32); eCRCL 94 ML/MIN; eGFR 65 ML/MIN
[2023-10-01] MEDS ORDERED: regadenoson 0.4mg/5ml syringe IV ONE (09:05)
[2023-10-01] MEDS ORDERED: aminophylline inj. 0 ML IV ONE (09:07)
[2023-10-01] MEDS: CefTRIAXone 2gm/D5W 50ml BAG 50 ML IV SCH (11:11)
[2023-10-01] MEDS ORDERED: ALBU18HF2 IH (12:20)
[2023-10-01] MEDS ORDERED: LEVO-65 PO (12:20)
[2023-10-01] MEDS ORDERED: LOSA50TA64 PO (12:20)
[2023-10-01] MEDS ORDERED: ACET-3209 PO (12:24)
[2023-10-02] MEDS ORDERED: apixaban 5mg tablet PO SCH (08:00)
== END 2023-10-01 17:54 | disposition home or self-care (01) | DRG 313 ==
LOC: ER 10:27 → ED HOLD 13:17 → PCU 3S 21:35
PROVIDERS: ADMIT Internal Medicine; ATTEND Internal Medicine
PROC: B32T1ZZ Computerized Tomography (CT Scan) of Left Pulmonary Artery using Low Osmolar Contrast (ICD-10-PCS; principal; 2023-09-30)
PROC: B3201ZZ Computerized Tomography (CT Scan) of Thoracic Aorta using Low Osmolar Contrast (ICD-10-PCS; 2023-09-30)
PROC: B32S1ZZ Computerized Tomography (CT Scan) of Right Pulmonary Artery using Low Osmolar Contrast (ICD-10-PCS; 2023-09-30)
PROC: 4A02XM4 Measurement of Cardiac Total Activity, External Approach (ICD-10-PCS; 2023-10-01)
PROC: 3E033HZ Introduction of Radioactive Substance into Peripheral Vein, Percutaneous Approach (ICD-10-PCS; 2023-10-01)
DX: R07.9 Chest pain, unspecified (principal); E66.2 Morbid (severe) obesity with alveolar hypoventilation; I82.501 Chronic embolism and thrombosis of unspecified deep veins of right lower extremity; Z68.41 Body mass index [BMI] 40.0-44.9, adult; D75.1 Secondary polycythemia; Z20.822 Contact with and (suspected) exposure to COVID-19; I12.9 Hypertensive chronic kidney disease with stage 1 through stage 4 chronic kidney disease, or unspecified chronic kidney disease; G89.29 Other chronic pain; M54.9 Dorsalgia, unspecified; N18.2 Chronic kidney disease, stage 2 (mild); Z86.711 Personal history of pulmonary embolism; Z79.899 Other long term (current) drug therapy; Z79.01 Long term (current) use of anticoagulants
CPT/HCPCS: 36415; 71045; 71275; 74174; 78452; 80053; 83605; 83735; 83880; 84145; 84484; 85025; 85379; 87040; 87811; 90686; 93005; 93017; 93306; 94640; 94760; 96374; 96375; 99285; A6258; A9500; G0378; J0280; J0696; J1170; J2270; J2405; J2785; J2930; J3490; J7030; J7040; Q9967

== ENCOUNTER 2025-01-17 05:09 | Inpatient (IN) | payer BC ==
[~2025-01-17] VITALS: Ht 198.1 cm; Wt 145.4 kg
[~2025-01-17 05:09] MED LIST changes: +ALBU18HF2 IH; -ATOR20TA66 PO; -HYDR-3972 PO; +LOSA50TA64 PO
[2025-01-17 05:55] LABS: BASOPHILS # (AUTO) 0.1 X10'3 (0-0.2); EOSINOPHILS # (AUTO) 0.3 X10'3 (0-0.9); EOSINOPHILS % (AUTO) 3.2 % (0-6); HEMATOCRIT 53.1 % (42.0-52.0); HEMOGLOBIN 17.9 g/dl (14.0-17.9); LYMPHOCYTES % (AUTO) 30.2 % (21-51); MEAN CORPUSCULAR HEMOGLOBIN 29.9 PG (27.0-31.0); MEAN CORPUSCULAR HGB CONC 33.7 g/dL (33.0-36.5); MEAN CORPUSCULAR VOLUME 88.6 FL (78-98); MEAN PLATELET VOLUME 8.7 FL (7.4-10.4); MONOCYTES # (AUTO) 1.1 X10'3 (0-0.9); MONOCYTES % (AUTO) 11.7 % (2-12); NEUTROPHILS # (AUTO) 5.3 X10'3 (1.8-7.7); NEUTROPHILS % (AUTO) 53.9 % (42-75); PLATELET COUNT 256 X10'3 (140-440); RED BLOOD COUNT 5.99 X10'6 (4.70-6.10); RED CELL DISTRIBUTION WIDTH 12.7 % (11.5-14.5); WHITE BLOOD COUNT 9.8 X10'3 (4.5-11.0)
[2025-01-17 06:02] LABS: APTT 29 SECONDS (22-32)
[2025-01-17 06:05] LABS: ALANINE AMINOTRANSFERASE 30 U/L (12-78); ALBUMIN 3.6 G/DL (3.4-5.0); ALBUMIN/GLOBULIN RATIO 0.9 (1.1-1.5); ALKALINE PHOSPHATASE 113 IU/L (46-116); ANION GAP 7 (8-16); ASPARTATE AMINO TRANSFERASE 25 U/L (10-37); BILIRUBIN,TOTAL 0.5 MG/DL (0.1-1.0); BLOOD UREA NITROGEN 13 MG/DL (7-18); BUN/CREATININE RATIO 11.1 (10.0-20.0); CALCIUM 8.9 MG/DL (8.5-10.1); CHLORIDE 105 MMOL/L (99-107); CREATININE 1.17 MG/DL (0.60-1.10); GLUCOSE 108 MG/DL (70-104); POTASSIUM 3.6 MMOL/L (3.5-5.1); SODIUM 139 MMOL/L (135-145); TOTAL CARBON DIOXIDE 27.4 MMOL/L (24-32); TOTAL PROTEIN 7.4 G/DL (6.4-8.2); eCRCL 92 ML/MIN; eGFR 65 ML/MIN
[2025-01-17 06:12] LABS: PRO BRAIN NATRIURETIC PEPTIDE 99 PG/ML (0-125)
[2025-01-17] MEDS ORDERED: iohexol 350MG/ML 100ml bottle IV ONE (06:20)
[2025-01-17] MEDS: morphine 4 MG/ML inj SYRINge IV ONE (06:45)
[2025-01-17] MEDS: ondansetron/PF 4mg/2ml inj IV ONE (06:45)
[2025-01-17] MEDS: HYDROmorphone 1 mg/ml syringe IV ONE (08:05)
[2025-01-17] MEDS ORDERED: normal saline 1000ml 1,000 ML IV SCH (09:50)
[2025-01-17] MEDS ORDERED: magnesium hydroxide 30ml (MOM) UD suspension PO PRN (09:50)
[2025-01-17] MEDS ORDERED: ondansetron/PF 4mg/2ml inj IV PRN (09:50)
[2025-01-17] MEDS ORDERED: magnesium sulf-water 4G/100mL 100 ML IV PRN (09:50)
[2025-01-17] MEDS ORDERED: potassium Cl 40MEQ/1/2NS 520ml 520 ML IV PRN (09:50)
[2025-01-17] MEDS ORDERED: potassium Cl 20 mEq SR tablet PO PRN ×2 (09:50)
[2025-01-17] MEDS ORDERED: magnesium sulf-water 2g/50mL 50 ML IV PRN (09:50)
[2025-01-17] MEDS ORDERED: mag hydrox/Alum hydrox/simeth 30ml oral suspension PO PRN (09:50)
[2025-01-17] MEDS ORDERED: magnesium Cl slow-release 64mg tablet PO PRN (09:50)
[2025-01-17] MEDS ORDERED: acetaminophen 325mg tablet PO PRN (09:50)
[2025-01-17] MEDS ORDERED: morphine 2 MG/ML inj. syringe IV PRN ×2 (09:50)
[2025-01-17] MEDS: furosemide 10 MG/1 ML 10ml inj IV ONE (10:11)
[2025-01-17] MEDS: heparin 10,000 units/1 ML INJ IV ONE (10:13)
[2025-01-17] MEDS: heparin 25,000 UNIT/250ml bag 250 ML IV PRN (10:14)
[2025-01-17] MEDS: HEPARIN DRIP DVT/PE -**PHARMACIST TO DOSE IV ONE (10:16)
[2025-01-17] MEDS: MESSAGE TO NURSING IV ONE ×3 (10:17→23:46)
[2025-01-17 10:28] LABS: BASOPHILS # (AUTO) 0.1 X10'3 (0-0.2); BASOPHILS % (AUTO) 0.7 % (0-1); EOSINOPHILS # (AUTO) 0.1 X10'3 (0-0.9); EOSINOPHILS % (AUTO) 1.5 % (0-6); HEMATOCRIT 51.4 % (42.0-52.0); HEMOGLOBIN 17.8 g/dl (14.0-17.9); LYMPHOCYTES % (AUTO) 20.6 % (21-51); MEAN CORPUSCULAR HEMOGLOBIN 30.1 PG (27.0-31.0); MEAN CORPUSCULAR HGB CONC 34.5 g/dL (33.0-36.5); MEAN CORPUSCULAR VOLUME 87.2 FL (78-98); MEAN PLATELET VOLUME 8.5 FL (7.4-10.4); MONOCYTES # (AUTO) 0.9 X10'3 (0-0.9); MONOCYTES % (AUTO) 9.1 % (2-12); NEUTROPHILS # (AUTO) 6.5 X10'3 (1.8-7.7); NEUTROPHILS % (AUTO) 68.1 % (42-75); PLATELET COUNT 249 X10'3 (140-440); RED CELL DISTRIBUTION WIDTH 12.7 % (11.5-14.5); WHITE BLOOD COUNT 9.6 X10'3 (4.5-11.0)
[2025-01-17 11:05] LABS: APTT 30 SECONDS (22-32); PROTHROMBIN TIME 10.2 SECONDS (9.0-12.0)
[2025-01-17] MEDS: hydrALAZINE 20mg/ml inj. ONE (14:04)
[2025-01-17] MEDS: HYDROmorphone/PF 0.2 MG/ML SYRINGE IV ONE (14:08)
[2025-01-17] MEDS: hydrALAZINE 20mg/ml inj. IV ONE (14:09)
[2025-01-17] MEDS: diazepam inj 5 MG/ML inj. IV ONE (17:06)
[2025-01-17 17:30] VITALS: BP_SYST 140; BP_SYST 145; BP_SYST 152; BP_DIAS 102; BP_DIAS 105; BP_DIAS 99; PULSE 87; PULSE 89; PULSE 93
[2025-01-17 18:00] VITALS: BP 140/99; PULSE 93; RESP 16; TEMP 98.9; O2SAT 95
[2025-01-17] MEDS: K and/or MAG REPLACEMENT MC SCH (19:30)
[2025-01-17] MEDS: HYDROmorphone inj. 0.5 MG/0.5 ML DISP.SYRIN IV PRN (19:53)
[2025-01-17] MEDS: docusate sod 100mg capsule PO SCH (19:53)
[2025-01-17 22:00] VITALS: BP 121/67; PULSE 75; RESP 17; TEMP 97.4; O2SAT 94
[2025-01-17] MEDS: heparin 10,000 units/1 ML INJ IV PRN (22:58)
[2025-01-18] VITALS (7 sets, daily range): BP systolic 115–162; BP diastolic 62–110; PULSE 70–89; RESP 17–22; TEMP 97.1–97.6; O2SAT 93–96
[2025-01-18 06:13] LABS: BASOPHILS # (AUTO) 0.1 X10'3 (0-0.2); BASOPHILS % (AUTO) 0.7 % (0-1); EOSINOPHILS # (AUTO) 0.2 X10'3 (0-0.9); EOSINOPHILS % (AUTO) 2.6 % (0-6); HEMOGLOBIN 17.2 g/dl (14.0-17.9); LYMPHOCYTES # (AUTO) 2.1 X10'3 (1.1-4.8); LYMPHOCYTES % (AUTO) 24.5 % (21-51); MEAN CORPUSCULAR HEMOGLOBIN 29.8 PG (27.0-31.0); MEAN CORPUSCULAR HGB CONC 33.8 g/dL (33.0-36.5); MEAN CORPUSCULAR VOLUME 88.2 FL (78-98); MEAN PLATELET VOLUME 9.5 FL (7.4-10.4); MONOCYTES # (AUTO) 0.9 X10'3 (0-0.9); MONOCYTES % (AUTO) 10.6 % (2-12); NEUTROPHILS # (AUTO) 5.2 X10'3 (1.8-7.7); NEUTROPHILS % (AUTO) 61.6 % (42-75); PLATELET COUNT 241 X10'3 (140-440); RED BLOOD COUNT 5.79 X10'6 (4.70-6.10); RED CELL DISTRIBUTION WIDTH 12.8 % (11.5-14.5); WHITE BLOOD COUNT 8.4 X10'3 (4.5-11.0)
[2025-01-18 06:23] LABS: ALANINE AMINOTRANSFERASE 28 U/L (12-78); ALBUMIN 3.4 G/DL (3.4-5.0); ALBUMIN/GLOBULIN RATIO 0.9 (1.1-1.5); ALKALINE PHOSPHATASE 106 IU/L (46-116); ANION GAP 9 (8-16); ASPARTATE AMINO TRANSFERASE 20 U/L (10-37); BLOOD UREA NITROGEN 16 MG/DL (7-18); BUN/CREATININE RATIO 17.2 (10.0-20.0); CALCIUM 8.7 MG/DL (8.5-10.1); CHLORIDE 102 MMOL/L (99-107); CREATININE 0.93 MG/DL (0.60-1.10); GLUCOSE 99 MG/DL (70-104); MAGNESIUM 2.2 MG/DL (1.5-2.4); POTASSIUM 4.3 MMOL/L (3.5-5.1); SODIUM 134 MMOL/L (135-145); TOTAL CARBON DIOXIDE 22.6 MMOL/L (24-32); TOTAL PROTEIN 7.3 G/DL (6.4-8.2); eCRCL 116 ML/MIN; eGFR 84 ML/MIN
[2025-01-18] MEDS: MESSAGE TO NURSING IV ONE ×2 (07:01→13:01)
[2025-01-18] MEDS: losartan 25mg tablet PO SCH (12:21)
[2025-01-18 13:31] LABS: CHOLESTEROL 197 MG/DL (0-200); HDL CHOLESTEROL 49 MG/DL (35-60); LDL CHOLESTEROL 126 MG/DL (50-100); TRIGLYCERIDES 125 MG/DL (20-135)
[2025-01-19] VITALS (7 sets, daily range): BP systolic 110–140; BP diastolic 68–99; PULSE 72–93; RESP 15–22; TEMP 98.1–98.4; O2SAT 92–97
[2025-01-19] MEDS: MESSAGE TO NURSING IV ONE ×4 (00:04→19:48)
[2025-01-19 06:10] LABS: BASOPHILS % (AUTO) 0.6 % (0-1); EOSINOPHILS # (AUTO) 0.2 X10'3 (0-0.9); EOSINOPHILS % (AUTO) 2.5 % (0-6); HEMOGLOBIN 16.9 g/dl (14.0-17.9); LYMPHOCYTES % (AUTO) 25.6 % (21-51); MEAN CORPUSCULAR HEMOGLOBIN 29.6 PG (27.0-31.0); MEAN CORPUSCULAR HGB CONC 33.7 g/dL (33.0-36.5); MEAN CORPUSCULAR VOLUME 87.9 FL (78-98); MEAN PLATELET VOLUME 8.7 FL (7.4-10.4); MONOCYTES # (AUTO) 0.8 X10'3 (0-0.9); MONOCYTES % (AUTO) 10.2 % (2-12); NEUTROPHILS # (AUTO) 4.7 X10'3 (1.8-7.7); NEUTROPHILS % (AUTO) 61.1 % (42-75); PLATELET COUNT 262 X10'3 (140-440); RED CELL DISTRIBUTION WIDTH 13.2 % (11.5-14.5); WHITE BLOOD COUNT 7.7 X10'3 (4.5-11.0)
[2025-01-19 06:25] LABS: ALANINE AMINOTRANSFERASE 23 U/L (12-78); ALBUMIN 3.3 G/DL (3.4-5.0); ALBUMIN/GLOBULIN RATIO 0.9 (1.1-1.5); ALKALINE PHOSPHATASE 99 IU/L (46-116); ANION GAP 8 (8-16); ASPARTATE AMINO TRANSFERASE 14 U/L (10-37); BLOOD UREA NITROGEN 17 MG/DL (7-18); BUN/CREATININE RATIO 18.9 (10.0-20.0); CALCIUM 8.8 MG/DL (8.5-10.1); CHLORIDE 101 MMOL/L (99-107); GLUCOSE 93 MG/DL (70-104); MAGNESIUM 1.9 MG/DL (1.5-2.4); POTASSIUM 3.7 MMOL/L (3.5-5.1); SODIUM 135 MMOL/L (135-145); TOTAL CARBON DIOXIDE 26.4 MMOL/L (24-32); TOTAL PROTEIN 6.9 G/DL (6.4-8.2); eCRCL 120 ML/MIN; eGFR 88 ML/MIN
[2025-01-19] MEDS ORDERED: LOSA25TA41 PO (07:24)
[2025-01-19] MEDS ORDERED: APIX5TAB3 PO (07:24)
[2025-01-19 12:22] LABS: ABG HCO3 22.6 mmol/L (21.0-28.0); ABG OXYGEN SATURATION 93.6 % (94.0-98.0); ABG PCO2 (T) 34.6 mmHg (35.0-48.0); ABG PH (T) 7.431 (7.350-7.450); ABG PO2 (T) 63.5 mmHg (83.0-108.0); FCOHb 1.1 % (0.5-1.5); FHHb 6.3 % (0.0-5.0); FMetHb 0.1 % (0.0-1.5); FO2Hb 92.5 % (94.0-98.0); MODE ROOM AIR; PATIENT TEMPERATURE 36.7; TOTAL HEMOGLOBIN 17.8 G/dl (13.5-17.5)
[2025-01-20] VITALS (7 sets, daily range): BP systolic 103–156; BP diastolic 71–93; PULSE 67–85; RESP 18–22; TEMP 97–97.2; O2SAT 94–96
[2025-01-20] MEDS: MESSAGE TO NURSING IV ONE ×2 (02:21→08:17)
[2025-01-20 05:29] LABS: BILIRUBIN,URINE NEGATIVE (Neg); CLARITY,URINE CLEAR (Clear); COLOR,URINE YELLOW (Yellow); GLUCOSE, URINE NEGATIVE (Neg); KETONES,URINE NEGATIVE (Neg); LEUKOCYTE ESTERASE ,URINE NEGATIVE (Neg); NITRITES, URINE NEGATIVE (Neg); OCCULT BLOOD,URINE NEGATIVE (Neg); PROTEIN,URINE NEGATIVE (Neg); UROBILINOGEN,URINE 0.2 E.U/dL (0.2-1.0)
[2025-01-20 05:31] LABS: UA COLLECTION TYPE NON-SPECIFIED
[2025-01-20 05:52] LABS: URINE AMPHETAMINE SCREEN NEGATIVE (Neg); URINE BARBITUATE SCREEN NEGATIVE (Neg); URINE BENZODIAZEPINES SCREEN NEGATIVE (Neg); URINE CANNABINOID SCREEN NEGATIVE (Neg); URINE COCAINE SCREEN NEGATIVE (Neg); URINE METHADONE SCREEN NEGATIVE (Neg); URINE OPIATE SCREEN POSITIVE (Neg); URINE PHENCYCLIDINE SCREEN NEGATIVE (Neg)
[2025-01-20 07:09] LABS: BASOPHILS % (AUTO) 0.6 % (0-1); EOSINOPHILS # (AUTO) 0.2 X10'3 (0-0.9); EOSINOPHILS % (AUTO) 3.4 % (0-6); HEMATOCRIT 47.8 % (42.0-52.0); HEMOGLOBIN 15.8 g/dl (14.0-17.9); LYMPHOCYTES # (AUTO) 1.4 X10'3 (1.1-4.8); LYMPHOCYTES % (AUTO) 21.7 % (21-51); MEAN CORPUSCULAR HEMOGLOBIN 29.1 PG (27.0-31.0); MEAN CORPUSCULAR HGB CONC 33.1 g/dL (33.0-36.5); MEAN CORPUSCULAR VOLUME 87.9 FL (78-98); MEAN PLATELET VOLUME 8.3 FL (7.4-10.4); MONOCYTES # (AUTO) 0.8 X10'3 (0-0.9); MONOCYTES % (AUTO) 12.4 % (2-12); NEUTROPHILS # (AUTO) 4.1 X10'3 (1.8-7.7); NEUTROPHILS % (AUTO) 61.9 % (42-75); PLATELET COUNT 239 X10'3 (140-440); RED BLOOD COUNT 5.44 X10'6 (4.70-6.10); RED CELL DISTRIBUTION WIDTH 12.4 % (11.5-14.5); WHITE BLOOD COUNT 6.7 X10'3 (4.5-11.0)
[2025-01-20 07:22] LABS: ALANINE AMINOTRANSFERASE 21 U/L (12-78); ALBUMIN/GLOBULIN RATIO 0.9 (1.1-1.5); ALKALINE PHOSPHATASE 90 IU/L (46-116); ANION GAP 6 (8-16); ASPARTATE AMINO TRANSFERASE 15 U/L (10-37); BILIRUBIN,TOTAL 0.8 MG/DL (0.1-1.0); BLOOD UREA NITROGEN 15 MG/DL (7-18); BUN/CREATININE RATIO 16.1 (10.0-20.0); CALCIUM 8.4 MG/DL (8.5-10.1); CHLORIDE 104 MMOL/L (99-107); CREATININE 0.93 MG/DL (0.60-1.10); GLUCOSE 93 MG/DL (70-104); SODIUM 138 MMOL/L (135-145); TOTAL CARBON DIOXIDE 27.6 MMOL/L (24-32); TOTAL PROTEIN 6.3 G/DL (6.4-8.2); eCRCL 116 ML/MIN; eGFR 84 ML/MIN
[2025-01-20] MEDS ORDERED: ALBU18HF2 IH (11:22)
[2025-01-20] MEDS: metoprolol tartrate 1mg/ml inj IV ONE ×2 (18:44→18:49)
[2025-01-20] MEDS: apixaban 5mg tablet PO SCH (19:40)
[2025-01-20] MEDS: metoprolol tartrate 12.5mg (1/2 tablet) PO ONE (19:41)
[2025-01-21] VITALS (10 sets, daily range): BP systolic 108–129; BP diastolic 50–85; PULSE 68–86; RESP 16–20; TEMP 97–98.1; O2SAT 93–97
[2025-01-21 06:31] LABS: BASOPHILS # (AUTO) 0.1 X10'3 (0-0.2); BASOPHILS % (AUTO) 0.8 % (0-1); EOSINOPHILS # (AUTO) 0.2 X10'3 (0-0.9); EOSINOPHILS % (AUTO) 2.9 % (0-6); HEMATOCRIT 49.3 % (42.0-52.0); HEMOGLOBIN 16.9 g/dl (14.0-17.9); LYMPHOCYTES # (AUTO) 1.7 X10'3 (1.1-4.8); LYMPHOCYTES % (AUTO) 26.5 % (21-51); MEAN CORPUSCULAR HEMOGLOBIN 29.9 PG (27.0-31.0); MEAN CORPUSCULAR HGB CONC 34.2 g/dL (33.0-36.5); MEAN CORPUSCULAR VOLUME 87.4 FL (78-98); MEAN PLATELET VOLUME 8.5 FL (7.4-10.4); MONOCYTES # (AUTO) 0.7 X10'3 (0-0.9); MONOCYTES % (AUTO) 11.3 % (2-12); NEUTROPHILS # (AUTO) 3.8 X10'3 (1.8-7.7); NEUTROPHILS % (AUTO) 58.5 % (42-75); PLATELET COUNT 259 X10'3 (140-440); RED BLOOD COUNT 5.65 X10'6 (4.70-6.10); RED CELL DISTRIBUTION WIDTH 12.7 % (11.5-14.5); WHITE BLOOD COUNT 6.5 X10'3 (4.5-11.0)
[2025-01-21 06:53] LABS: ALANINE AMINOTRANSFERASE 25 U/L (12-78); ALBUMIN 3.3 G/DL (3.4-5.0); ALBUMIN/GLOBULIN RATIO 0.9 (1.1-1.5); ALKALINE PHOSPHATASE 91 IU/L (46-116); ANION GAP 8 (8-16); ASPARTATE AMINO TRANSFERASE 20 U/L (10-37); BILIRUBIN,TOTAL 0.8 MG/DL (0.1-1.0); BLOOD UREA NITROGEN 15 MG/DL (7-18); BUN/CREATININE RATIO 15.5 (10.0-20.0); CALCIUM 8.8 MG/DL (8.5-10.1); CHLORIDE 103 MMOL/L (99-107); CREATININE 0.97 MG/DL (0.60-1.10); GLUCOSE 98 MG/DL (70-104); MAGNESIUM 2.1 MG/DL (1.5-2.4); SODIUM 138 MMOL/L (135-145); TOTAL CARBON DIOXIDE 27.2 MMOL/L (24-32); TOTAL PROTEIN 6.8 G/DL (6.4-8.2); eCRCL 111 ML/MIN; eGFR 80 ML/MIN
[2025-01-21] MEDS: albuterol 2.5 MG/3 ML nebule NEB PRN (07:46)
[2025-01-21] MEDS: MESSAGE TO NURSING IV ONE (09:37)
[2025-01-21] MEDS ORDERED: meclizine 12.5mg tablet PO PRN (14:45)
[2025-01-21] MEDS: meclizine 12.5mg tablet PO ONE (15:00)
[2025-01-22 02:00] VITALS: BP 118/85; PULSE 67; RESP 16; TEMP 97.3; O2SAT 95
[2025-01-22 06:57] LABS: BASOPHILS # (AUTO) 0.1 X10'3 (0-0.2); BASOPHILS % (AUTO) 0.7 % (0-1); EOSINOPHILS # (AUTO) 0.2 X10'3 (0-0.9); HEMATOCRIT 47.3 % (42.0-52.0); HEMOGLOBIN 15.8 g/dl (14.0-17.9); LYMPHOCYTES # (AUTO) 1.7 X10'3 (1.1-4.8); LYMPHOCYTES % (AUTO) 22.7 % (21-51); MEAN CORPUSCULAR HEMOGLOBIN 29.4 PG (27.0-31.0); MEAN CORPUSCULAR HGB CONC 33.4 g/dL (33.0-36.5); MEAN CORPUSCULAR VOLUME 88.1 FL (78-98); MEAN PLATELET VOLUME 8.6 FL (7.4-10.4); MONOCYTES % (AUTO) 13.3 % (2-12); NEUTROPHILS # (AUTO) 4.5 X10'3 (1.8-7.7); NEUTROPHILS % (AUTO) 60.3 % (42-75); PLATELET COUNT 252 X10'3 (140-440); RED BLOOD COUNT 5.36 X10'6 (4.70-6.10); RED CELL DISTRIBUTION WIDTH 12.7 % (11.5-14.5); WHITE BLOOD COUNT 7.5 X10'3 (4.5-11.0)
[2025-01-22 07:00] VITALS: BP 126/56; PULSE 60; RESP 16; TEMP 97.4; O2SAT 95
[2025-01-22 07:46] LABS: ALANINE AMINOTRANSFERASE 26 U/L (12-78); ALBUMIN 3.1 G/DL (3.4-5.0); ALBUMIN/GLOBULIN RATIO 0.9 (1.1-1.5); ALKALINE PHOSPHATASE 85 IU/L (46-116); ANION GAP 6 (8-16); ASPARTATE AMINO TRANSFERASE 28 U/L (10-37); BILIRUBIN,TOTAL 0.7 MG/DL (0.1-1.0); BLOOD UREA NITROGEN 17 MG/DL (7-18); BUN/CREATININE RATIO 16.7 (10.0-20.0); CALCIUM 8.4 MG/DL (8.5-10.1); CHLORIDE 104 MMOL/L (99-107); CREATININE 1.02 MG/DL (0.60-1.10); GLUCOSE 80 MG/DL (70-104); SODIUM 139 MMOL/L (135-145); TOTAL CARBON DIOXIDE 29.3 MMOL/L (24-32); TOTAL PROTEIN 6.5 G/DL (6.4-8.2); eCRCL 106 ML/MIN; eGFR 76 ML/MIN
[2025-01-22 07:55] VITALS: PULSE 64; RESP 20; O2SAT 95
[2025-01-22 08:00] VITALS: BP_SYST 136; BP_SYST 152; BP_DIAS 81; BP_DIAS 85
[2025-01-22] MEDS: atorvastatin 20mg tablet PO SCH (08:19)
[2025-01-22 11:00] VITALS: BP 106/65; PULSE 72; RESP 12; TEMP 98.7; O2SAT 95
[2025-01-22 15:00] VITALS: BP 118/60; PULSE 74; RESP 18; TEMP 97.6; O2SAT 100
[2025-01-22] MEDS ORDERED: HYDR-3965 PO (16:43)
== END 2025-01-22 15:55 | disposition home or self-care (01) | DRG 175 ==
LOC: ER 05:10 → ED HOLD 09:28 → ORTHO 4S 11:21 → PCU 3S 01-20 18:57
PROVIDERS: ADMIT Internal Medicine; ATTEND Internal Medicine
PROC: B32T1ZZ Computerized Tomography (CT Scan) of Left Pulmonary Artery using Low Osmolar Contrast (ICD-10-PCS; principal; 2025-01-17)
PROC: B3201ZZ Computerized Tomography (CT Scan) of Thoracic Aorta using Low Osmolar Contrast (ICD-10-PCS; 2025-01-17)
PROC: B32S1ZZ Computerized Tomography (CT Scan) of Right Pulmonary Artery using Low Osmolar Contrast (ICD-10-PCS; 2025-01-17)
DX: I26.94 Multiple subsegmental thrombotic pulmonary emboli without acute cor pulmonale (principal); J96.01 Acute respiratory failure with hypoxia; N17.0 Acute kidney failure with tubular necrosis; E66.01 Morbid (severe) obesity due to excess calories; Z20.822 Contact with and (suspected) exposure to COVID-19; I10 Essential (primary) hypertension; Z86.718 Personal history of other venous thrombosis and embolism; Z79.01 Long term (current) use of anticoagulants; Z91.148 Patient's other noncompliance with medication regimen for other reason; Z79.899 Other long term (current) drug therapy; Z68.37 Body mass index [BMI] 37.0-37.9, adult
CPT/HCPCS: 36415; 36600; 71045; 71275; 80053; 80061; 80305; 81003; 82803; 83036; 83735; 83880; 84484; 85018; 85025; 85610; 85730; 87081; 87502; 87503; 87811; 93005; 93306; 93970; 94640; 94760; 96365; 96375; 97110; 97116; 97161; 97530; 99285; A4615; G0378; J0360; J1171; J1644; J1938; J2270; J2405; J3360; J3490; J7030; J8597; Q9967

== ENCOUNTER 2025-02-19 05:03 | Inpatient (IN) | payer BC ==
[~2025-02-19] VITALS: Ht 198.1 cm; Wt 154.5 kg
[~2025-02-19 05:03] MED LIST changes: +HYDR-3965 PO; +LOSA25TA41 PO; -LOSA50TA64 PO
--- NOTE | 2025-02-19 05:09 | ELECTROCARDIOGRAPH REPORT ---
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 Dhiraj Carbajal Measurements Intervals Monitor Rate: 84 P: 3 RI: 157 QRS: -63 QRSD: 105 T: 54 QT: 385 QTc: 456 Interpretive Statements Sinus rhythm Ventricular premature complex Incomplete RBBB and LAFB RSR' in V1 or V2, right VCD or RVH Electronically Signed On 02-21-2025 21:44:[address] Dhiraj Carbajal Please click the below link to view image of tracing.
[2025-02-19] MEDS ORDERED: iohexol 350MG/ML 100ml bottle IV ONE (05:27)
--- NOTE | 2025-02-19 05:44 | Physician Documentation ---
History of Present Illness ~ Chief Complaint: Shortness of Breath Stated Complaint: SOB/CP Time Seen by MD: 05:17 Primary Medical Doctor: Gerri Mode of Arrival: POV HPI 54 year old male reports that he was discharged from our facility with DVT/PE but that he was unable to fill his prescribed elaquis due to insurance reasons. Since that time he has become increasingly short of breath and experiencing chest pain. Denies fevers, N/V/D. Medication Reconciliation Allergies: Coded Allergies: No Known Allergies (Unverified , 01/17/25) Scheduled Albuterol Sulfate (Ventolin Hfa), 2 PUFFS IH 5XD Apixaban (Eliquis), 5 MG PO BID, (Reported) Apixaban (Eliquis), 1 TAB PO Q12H Losartan Potassium (Losartan Potassium), 25 MG PO DAILY Scheduled PRN Hydrocodone Bit/Acetaminophen 5/325 MG ([place] 5/325 MG), 1 TAB PO Q6H PRN for pain Past Medical History Past Medical History: Hypertension, Pulmonary Embolism, Deep Vein Thrombosis Past Surgical History: no surgical history Patient History: Patient reports no known family medical history. Alcohol Use: Occasionally Drug Use: none Lives with: Family Lives In: Home Occupation: employed Review of Systems All Other Systems at this time: Reviewed and Negative Physical Exam Vital Signs: RN Vital Signs have been reviewed: Yes, Temperature: 97.3, Source: Oral, Heart Rate: 82, Respiratory Rate: 13, BP: 176/109, Pulse Oximetry: 96, Weight: 164.200 Oxygen Flow Rate: 0 Physical Exam HEENT: PERRL, moist oral mucosa, EOMI Pulmonary: No respiratory distress Cardiac: RRR, no murmur, rub or gallop GI: nondistended, soft, nontender, no guarding, no rebound MSK: no deformity Skin: w/d/i, no rash Neuro: alert, nonfocal Psych: normal affect Progress Results/Orders Results/Orders Orders - MIC GALEANA MD Chest,Single View (02/19/25 05:40) Monitor (02/19/25 05:06) Saline Lock (02/19/25 05:06) Oxygen (02/19/25 05:06) Cbc/Diff (02/19/25 05:06) PBNP (02/19/25 05:06) CMP (02/19/25 05:06) Hs Troponin I W Calculations (02/19/25 05:06) Hs Troponin I W Calculations (02/19/25 07:06) Hs Troponin I W Calculations (02/19/25 08:06) Cta Chest Pe (02/19/25 05:18) Completed Orders - MIC GALEANA MD Chest,Single View (02/19/25 05:40) Electrocardiogram (02/19/25 05:06) Iohexol 350mg/Ml 100ml (Omnipaque 350mg/ (02/19/25 05:27) Vital Signs 02/19/25 02/19/25 02/19/25 02/19/25 05:11 05:26 05:26 05:39 Temp 97.3 Pulse 80 82 Resp 26 13 14 B/P (MAP) 191/122 176/109 (131) Pulse Ox 96 94 96 O2 Delivery Nasal Cannula* O2 Flow Rate 0 2 FiO2 N/A Laboratory Tests Test 02/19/25 05:21 CBC Comment Chemistry Comments Medical Decision Making Findings 54 year old male with known PE/DVT, mildly hypoxic on arrival. Labs and imaging pending, will sign out to oncoming ER physician for disposition. Differential Dx:Considerations: Include: anxiety, bronchitis, CHF, COPD, hyponatremia, myocardial infarction, pneumonia, pneumothorax, pulmonary embolism, respiratory distress, respiratory failure, upper resp. infection Departure Disposition: 30 STILL A PATIENT Impression: Primary Impression: Pulmonary embolism Referrals: NO PRIMARY CARE PROVIDER (PCP) Education Educated: Patient Educated regarding: diagnosis, treatment, prognosis, need for follow up Signature Scribe Signature: . Attestation: . MIC GALEANA MD February 19, 2025 05:44
[2025-02-19 05:46] LABS: BASOPHILS # (AUTO) 0.1 X10'3 (0-0.2); BASOPHILS % (AUTO) 1.1 % (0-1); EOSINOPHILS # (AUTO) 0.2 X10'3 (0-0.9); EOSINOPHILS % (AUTO) 2.3 % (0-6); HEMATOCRIT 51.6 % (42.0-52.0); HEMOGLOBIN 17.5 g/dl (14.0-17.9); LYMPHOCYTES # (AUTO) 2.6 X10'3 (1.1-4.8); LYMPHOCYTES % (AUTO) 28.6 % (21-51); MEAN CORPUSCULAR HEMOGLOBIN 29.7 PG (27.0-31.0); MEAN CORPUSCULAR HGB CONC 33.9 g/dL (33.0-36.5); MEAN CORPUSCULAR VOLUME 87.7 FL (78-98); MEAN PLATELET VOLUME 8.8 FL (7.4-10.4); MONOCYTES # (AUTO) 0.8 X10'3 (0-0.9); MONOCYTES % (AUTO) 9.1 % (2-12); NEUTROPHILS # (AUTO) 5.4 X10'3 (1.8-7.7); NEUTROPHILS % (AUTO) 58.9 % (42-75); PLATELET COUNT 312 X10'3 (140-440); RED BLOOD COUNT 5.88 X10'6 (4.70-6.10); WHITE BLOOD COUNT 9.2 X10'3 (4.5-11.0)
--- NOTE | 2025-02-19 05:55 | RADIOLOGY REPORT ---
EXAM: XR Chest, 1 View CLINICAL INDICATION: CP TECHNIQUE: Frontal view of the chest. COMPARISON: DI CHEST,SINGLE VIEW on DOS: 01/17/25, DI CHEST,SINGLE VIEW on DOS: 09/30/23, CHEST,SING LE VIEW on DOS: 01/28/21, CHEST,SINGLE VIEW on DOS: 03/09/20, CHEST,SINGLE VIEW on DOS: 08/17/19 FINDINGS: LUNGS AND PLEURAL SPACES: Unremarkable. No consolidation. No pneumothorax. HEART: Cardiomegaly without overt failure. MEDIASTINUM: Unremarkable. Normal mediastinal contour. BONES/JOINTS: Unremarkable. No acute fracture. OTHER FINDINGS: . . . IMPRESSION: Cardiomegaly without overt failure.
[2025-02-19 06:01] LABS: ALANINE AMINOTRANSFERASE 25 U/L (12-78); ALBUMIN 3.4 G/DL (3.4-5.0); ALBUMIN/GLOBULIN RATIO 0.8 (1.1-1.5); ALKALINE PHOSPHATASE 105 IU/L (46-116); ANION GAP 7 (8-16); ASPARTATE AMINO TRANSFERASE 16 U/L (10-37); BILIRUBIN,TOTAL 0.4 MG/DL (0.1-1.0); BLOOD UREA NITROGEN 18 MG/DL (7-18); BUN/CREATININE RATIO 16.8 (10.0-20.0); CALCIUM 8.9 MG/DL (8.5-10.1); CHLORIDE 105 MMOL/L (99-107); CREATININE 1.07 MG/DL (0.60-1.10); GLUCOSE 95 MG/DL (70-104); SODIUM 139 MMOL/L (135-145); TOTAL CARBON DIOXIDE 27.5 MMOL/L (24-32); TOTAL PROTEIN 7.6 G/DL (6.4-8.2); eCRCL 101 ML/MIN; eGFR 72 ML/MIN
[2025-02-19 06:06] LABS: PRO BRAIN NATRIURETIC PEPTIDE 87 PG/ML (0-125)
[2025-02-19 06:11] LABS: POTASSIUM 4.2 MMOL/L (3.5-5.1)
[2025-02-19] MEDS: oxyCODONE/APAP 5-325mg tablet PO ONE (06:25)
[2025-02-19] MEDS: HYDROmorphone inj. 0.5 MG/0.5 ML DISP.SYRIN IV ONE ×2 (06:46→09:05)
--- NOTE | 2025-02-19 06:47 | RADIOLOGY REPORT ---
EXAM: CT Angiography Chest With Intravenous Contrast CLINICAL INDICATION: shortness of breath, h/o DVT TECHNIQUE: Axial computed tomographic angiography images of the chest with intravenous contrast. is CT exam was performed using one or more of the following dose reduction techniques: automated exp osure control, adjustment of the mA and/or kV according to patient size, and/or use of iterative damaris nstruction technique. MIP reconstructed images were created and reviewed. CONTRAST: COMPARISON: CT CTA CHEST PE W/ IV CONTRAST on DOS: 01/17/25, CTA CHEST on DOS: 11/01/22, CTA CHEST on DOS: 01/28/21, CTA CHEST on DOS: 03/09/20, CTA CHEST on DOS: 02/03/19 FINDINGS: ARTIFACTS: Motion artifacts. LIMITATIONS: Suboptimal opacification of the pulmonary arteries. PULMONARY ARTERIES: No pulmonary embolism is identified. Some of the distal pulmonary arteries can not be evaluated due to suboptimal opacification. AORTA: No acute findings. No thoracic aortic aneurysm. LUNGS AND PLEURAL SPACES: Unremarkable. No mass. No consolidation. No significant effusion. No pneumothorax. HEART: Unremarkable. No cardiomegaly. No significant pericardial effusion. No evidence of RV dys function. BONES/JOINTS: No acute fracture. No dislocation. SOFT TISSUES: Unremarkable. LYMPH NODES: Unremarkable. No enlarged lymph nodes. OTHER FINDINGS: . . IMPRESSION: 1. No pulmonary embolism is identified. Some of the distal pulmonary arteries cannot be evaluated d ue to suboptimal opacification. 2. Motion artifacts.
[2025-02-19] MEDS ORDERED: magnesium hydroxide 30ml (MOM) UD suspension PO PRN (07:25)
[2025-02-19] MEDS ORDERED: potassium Cl 40MEQ/1/2NS 520ml 520 ML IV PRN (07:25)
[2025-02-19] MEDS ORDERED: potassium Cl 20 mEq SR tablet PO PRN ×2 (07:25)
[2025-02-19] MEDS ORDERED: morphine 2 MG/ML inj. syringe IV PRN (07:25)
[2025-02-19] MEDS ORDERED: magnesium sulf-water 2g/50mL 50 ML IV PRN (07:25)
[2025-02-19] MEDS ORDERED: mag hydrox/Alum hydrox/simeth 30ml oral suspension PO PRN (07:25)
[2025-02-19] MEDS ORDERED: ondansetron/PF 4mg/2ml inj IV PRN (07:25)
[2025-02-19] MEDS ORDERED: magnesium Cl slow-release 64mg tablet PO PRN (07:25)
[2025-02-19] MEDS ORDERED: magnesium sulf-water 4G/100mL 100 ML IV PRN (07:25)
[2025-02-19] MEDS ORDERED: acetaminophen 325mg tablet PO PRN ×2 (07:25)
[2025-02-19] MEDS: apixaban 5mg tablet PO ONE (07:28)
--- NOTE | 2025-02-19 07:32 | HISTORY AND PHYSICAL-Residence ---
History & Physical Providers to CC Resident Creating Document: MULUGETA HYATT, [facility] ~ History of Present Illness Primary Medical Doctor: DR. PEREZ Reason for Admit\Complaint: CHEST PAIN, SHORTNESS OF BREATH History of Present Illness 54-year-old male with a past medical history of to two episodes of pulmonary embolism and 5-6 episodes of DVT of right lower extremity, hypertension, chronic backache, obesity presented to the ED after failed outpatient therapy for pulmonary embolism. He endorses that he was recently admitted couple of weeks back here , after discharging he could not able to get the apixaban anticoagulation because of insurance problem. He was not on any Eliquis and he did not take even one dose of the Eliquis. Complained of chest pain on both sides of the chest, rated 7/10, radiating to back, aggravated with taking deep breathe. Endorses bilateral leg pain more on the right leg. Complaint of shortness of breaths, class four, associated with orthopnea and PND. Endorses swelling over the both legs more on the right leg than the left. Reddish discoloration of the right foot. Endorses increased cough for the past 10 days, dry and feeling like as if he is going to throw up. Denied hemoptysis. He endorses that he has a headache while he is coughing. He denied fever, pain abdomen, abdominal distention, palpitations Allergies: Coded Allergies: No Known Allergies (Unverified , 01/17/25) Home Medications Home Medications Active [place] 5/325 MG (Acetaminophen/Hydrocodone Bitart) 5 Mg/325 Mg Tablet 1 Tab PO Q6H PRN Ventolin Hfa (Albuterol Sulfate) 90 Mcg Hfa.aer.ad 2 Puffs IH 5XD Eliquis (Apixaban) 5 Mg Tablet 1 Tab PO Q12H 37 Days - Take two tablets of 5 mg in the morning, two tablets of 5 mg in the evening for one week. After one week. Take 5 mg twice daily for the next six months. Follow up with your primary care provider regularly. Losartan Potassium 25 Mg Tablet 25 Mg PO DAILY 30 Days Reported Eliquis (Apixaban) 5 Mg Tablet 5 Mg PO BID Past Medical History Past Medical History Saddle pulmonary embolus in 2019 Pulmonary embolism in 2019 Multiple episodes of DVT Hypertension Obesity Past Surgical History Surgical History Comment Left knee arthroscopy Right corneal eye surgery Family History Family History: Patient reports no known family medical history. Past Social History Social History Comment Smoking -10 cigars in his lifetime Social alcohol intake Denied drug use Smoking: Cigar Alcohol Use: Occasionally Drug Use: None Lives with: Family Lives In: Home Occupation: employed ROS All Other Systems: Reviewed and Negative ROS Reviewed in full and negative except positive pertinent as in the HPI Exam Vitals: Vital Signs Date Time Temp Pulse Resp B/P (MAP) Pulse Ox O2 Delivery O2 Flow Rate FiO2 02/19/25 06:46 22 02/19/25 06:22 82 133/91 (105) 97 2.0 02/19/25 05:39 Nasal Cannula* N/A 02/19/25 05:11 97.3 General: General examination: Alert, awake, oriented to time place person, obese, dyspneic, tachypneic, on oxygen 2 L via nasal cannula HEENT: PERRL, moist oral mucosa, EOMI Pulmonary: Expiratory wheezes present in suprascapular areas. Bilateral basal crepitations are present Cardiac: Heart rate and rhythm is regular, heard S1-S2, no murmur, rub or gallop Gastrointestinal: nondistended, soft, nontender, no guarding, no rebound Extremities: Right lower extremity swollen than the left. Skin: w/d/i, no rash. Reduced discoloration over the right foot lateral aspect Neuro: No focal neurological deficits Psych: normal affect Diagnostic Data Last Recorded Lab Results: 02/19/25 0502/19/25 05 Counseling Services Smoking & Tobacco Cessation: > 10 Minutes Advance Care Planning Advanced Care planning: Add on additional 30 min Additional Plan Acute hypoxemic respiratory failure 2/2 below 1) Bilateral PE and DVT history, poor drug compliance, failed outpatient therapy 2) Cossible obstructive sleep apnea 3) Cor pulmonale CBC , CMP, urinalysis is normal. Troponins and proBNP is normal PT INR is normal Echocardiogram on 01/17/2025 showed moderate concentric hypertrophy. Left ventricle ejection fraction of 70%. Started on apixaban 10 mg b.i.d, albuterol q.6h p.r.n, Methylprednisolone 60 mg IV b.i.d. Ordered ABG and we will follow up the result. Hyperlipidemia LDL on 01/18/2025 is 126 We will start the patient on atorvastatin 20 mg daily. Hypertension Blood pressures are in 170 under trended down to 150s On Losartan 50 mg p.o. once daily We will monitor the blood pressure is with goal is less than 130 Obesity, class three with a BMI of 41.8 Needs sleep specialist consultation outpatient and sleep studies, polysomnography Code status: Full code Diet: Heart healthy diet DVT prophylaxis: Apixaban PT: Ordered Prognosis: Guarded Mulugetankechi Diazneelima IM resident Date of Service: February 19, 2025 Billing Provider: VJ ARZATE MD Common Visit Codes: 23300-PSTSMOQ INP/OBS CARE (HIGH) Secondary Visit Codes: 94030-EZMFULLL CARE PLAN 30 MINUTES MULUGETA HYATT, RES February 19, 2025 07:32 VJ ARZATE MD February 19, 2025 17:51
[2025-02-19] MEDS: docusate sod 100mg capsule PO SCH (07:33)
[2025-02-19] MEDS: K and/or MAG REPLACEMENT MC SCH (07:33)
[2025-02-19] MEDS: normal saline 1000ml 1,000 ML IV SCH (08:02)
[2025-02-19 08:25] LABS: APTT 31 SECONDS (22-32); PROTHROMBIN TIME 10.4 SECONDS (9.0-12.0)
[2025-02-19 08:39] LABS: BILIRUBIN,URINE NEGATIVE (Neg); CLARITY,URINE CLEAR (Clear); COLOR,URINE YELLOW (Yellow); GLUCOSE, URINE NEGATIVE (Neg); KETONES,URINE NEGATIVE (Neg); LEUKOCYTE ESTERASE ,URINE NEGATIVE (Neg); NITRITES, URINE NEGATIVE (Neg); OCCULT BLOOD,URINE TRACE-INTACT (Neg); PROTEIN,URINE NEGATIVE (Neg); UROBILINOGEN,URINE 0.2 E.U/dL (0.2-1.0)
[2025-02-19 08:46] LABS: UA COLLECTION TYPE URINAL
[2025-02-19 08:48] LABS: BACTERIA,URINE NONE SEEN /HPF (Neg); MUCUS STRANDS NONE SEEN /LPF (Neg); RBC,URINE 0-2 /HPF (0-2); SQUAMOUS EPITHELIAL CELL,UR NONE SEEN /LPF (FEW); WBC,URINE 0-4 /HPF (0-4)
[2025-02-19 08:49] LABS: AMORPHOUS URATES 1+
[2025-02-19 12:33] LABS: ABG BASE EXCESS -2.3 mmol/L (-2.0-3.0); ABG HCO3 21.9 mmol/L (21.0-28.0); ABG OXYGEN SATURATION 95.5 % (94.0-98.0); ABG PCO2 (T) 36.9 mmHg (35.0-48.0); ABG PH (T) 7.392 (7.350-7.450); ABG PO2 (T) 80.3 mmHg (83.0-108.0); ALLEN'S TEST POSITIVE; FCOHb 0.2 % (0.5-1.5); FHHb 4.5 % (0.0-5.0); FLOW 2 L/min; FMetHb 0.2 % (0.0-1.5); FO2Hb 95.1 % (94.0-98.0); MODE NASAL CANNULA
[2025-02-19] MEDS: losartan 50mg tablet PO SCH (13:00)
[2025-02-19] MEDS: HYDROmorphone inj. 0.5 MG/0.5 ML DISP.SYRIN IV PRN (13:03)
[2025-02-19 13:27] VITALS: PULSE 85; RESP 18; O2SAT 94
[2025-02-19 14:00] VITALS: BP 148/104; PULSE 83; RESP 16; RESP 20; TEMP 97.7; O2SAT 92; O2SAT 93
[2025-02-19] MEDS ORDERED: albuterol 2.5 MG/3 ML nebule NEB PRN (17:55)
[2025-02-19 18:00] VITALS: BP 137/95; PULSE 76; RESP 20; TEMP 97.1; O2SAT 93
--- NOTE | 2025-02-19 19:27 | CARDIOLOGY REPORT ---
APPROVED REPORT EXAM: Limited 2D, Doppler, and color-flow Echocardiogram. Patient Location: [facility] B Blood Pressure: 148/104 mmHg Heart Rate: 75 bpm Rhythm: SINUS Indications SHORTNESS OF BREATH / CHEST PAIN RECENT PULMONARY EMBOLISM HYPERTENSION Respiratory Therapist: none Previous echo: none LEFT VENTRICLE Normal LV size and function. Moderate concentric hypertrophy. LVEF is 60-65%. RIGHT VENTRICLE RV appears dilated with normal systolic function. ATRIA Left atrium appears mildly dilated. AORTIC VALVE Trileaflet AV appears mildly sclerotic without stenosis. Trace insufficiency. MITRAL VALVE Mild MV annular calcification without stenosis. Trace regurgitation. TRICUSPID VALVE TV appears structurally normal with trace regurgitation. PULMONIC VALVE Normal PV without stenosis, physiologic insufficiency. PERICARDIUM Normal pericardium. No effusion. Other Information Study Quality: Adequate
[2025-02-19 19:54] VITALS: PULSE 75; RESP 18; O2SAT 93
[2025-02-19 20:00] VITALS: RESP 22; O2SAT 96
[2025-02-19] MEDS: methylPREDNISolone sod succ/PF 40mg inj. IV SCH (20:02)
[2025-02-19] MEDS: apixaban 5mg tablet PO SCH (20:03)
[2025-02-19 22:00] VITALS: BP 153/100; PULSE 94; RESP 20; TEMP 98.8; O2SAT 93
[2025-02-20] VITALS (18 sets, daily range): BP systolic 93–160; BP diastolic 60–98; PULSE 71–96; RESP 13–24; TEMP 96.9–97.8; O2SAT 92–97
[2025-02-20 06:20] LABS: BASOPHILS % (AUTO) 0.2 % (0-1); EOSINOPHILS % (AUTO) 0 % (0-6); HEMATOCRIT 49.8 % (42.0-52.0); HEMOGLOBIN 17.3 g/dl (14.0-17.9); LYMPHOCYTES # (AUTO) 0.7 X10'3 (1.1-4.8); LYMPHOCYTES % (AUTO) 9.2 % (21-51); MEAN CORPUSCULAR HEMOGLOBIN 30.3 PG (27.0-31.0); MEAN CORPUSCULAR HGB CONC 34.8 g/dL (33.0-36.5); MEAN CORPUSCULAR VOLUME 87.1 FL (78-98); MEAN PLATELET VOLUME 8.7 FL (7.4-10.4); MONOCYTES # (AUTO) 0.1 X10'3 (0-0.9); MONOCYTES % (AUTO) 1.2 % (2-12); NEUTROPHILS # (AUTO) 6.9 X10'3 (1.8-7.7); NEUTROPHILS % (AUTO) 89.4 % (42-75); PLATELET COUNT 324 X10'3 (140-440); RED BLOOD COUNT 5.72 X10'6 (4.70-6.10); RED CELL DISTRIBUTION WIDTH 12.8 % (11.5-14.5); WHITE BLOOD COUNT 7.7 X10'3 (4.5-11.0)
[2025-02-20 06:33] LABS: ALANINE AMINOTRANSFERASE 22 U/L (12-78); ALBUMIN 3.5 G/DL (3.4-5.0); ALBUMIN/GLOBULIN RATIO 0.8 (1.1-1.5); ALKALINE PHOSPHATASE 104 IU/L (46-116); ANION GAP 11 (8-16); ASPARTATE AMINO TRANSFERASE 15 U/L (10-37); BILIRUBIN,TOTAL 0.7 MG/DL (0.1-1.0); BLOOD UREA NITROGEN 15 MG/DL (7-18); CALCIUM 9.1 MG/DL (8.5-10.1); CHLORIDE 101 MMOL/L (99-107); CHOLESTEROL 191 MG/DL (0-200); CREATININE 0.88 MG/DL (0.60-1.10); GLUCOSE 131 MG/DL (70-104); HDL CHOLESTEROL 48 MG/DL (35-60); LDL CHOLESTEROL 131 MG/DL (50-100); POTASSIUM 4.6 MMOL/L (3.5-5.1); SODIUM 134 MMOL/L (135-145); TOTAL CARBON DIOXIDE 21.7 MMOL/L (24-32); TOTAL PROTEIN 8.1 G/DL (6.4-8.2); TRIGLYCERIDES 45 MG/DL (20-135); eCRCL 123 ML/MIN; eGFR 90 ML/MIN
[2025-02-20] MEDS: atorvastatin 20mg tablet PO SCH (08:56)
[2025-02-20] MEDS: aminophylline 500mg/20ml vial IV ONE (09:40)
[2025-02-20] MEDS: regadenoson 0.4mg/5ml syringe IV ONE (10:00)
[2025-02-20] MEDS: albuterol 2.5 MG/3 ML nebule NEB PRN (10:41)
--- NOTE | 2025-02-20 11:17 | RADIOLOGY REPORT ---
Reason for study/Clinical History: CHEST PAIN R/O ACS Comparison Study: NM NM ROB SCAN on DOS: 10/01/23 Myocardial Perfusion Study with SPECT Technique: The patient received an intravenous injection of 8 mCi of technetium-99m Sestamibi while at rest. After a short delay, SPECT tomographic images of the heart were obtained. The patient the n went to the stress lab where they received an intravenous Lexiscan utilizing standard protocol. 32 mCi of technetium-99m Sestamibi was injected intravenously immediately after the start of the infu linda. Gated SPECT tomographic images of the heart were acquired and processed. Findings: Rotating planar images show no significant attenuation artifact. The left ventricular size is within normal limits. Stress tomographic images demonstrate normal perfusion. Resting tomographic images demonstrate a similar pattern. Gated portion of the study shows normal wall motion and myocardial thickening. The left ventricular ejection fraction is 69%. (normal greater than 50%) Impression: Normal left ventricular size, wall motion, and function, without evidence of infarction or of myocard ium at ischemic risk. The left ventricular ejection fraction is 69%.
--- NOTE | 2025-02-20 13:46 | PROGRESS NOTE- Residence ---
Progress Note - Resident Providers to CC Resident Creating Document: RAJ HYATT RES ~ Antibiotic Timeout Antibiotic Ordered?: No Subjective Seen and examined the patient at bedside. He has shortness of breathe, chest pain is improved and he is feeling a lot better on today. He had a bowel movement on last night. He is feeling anxious and wondering about the medication after the discharge-Eliquis. Objective Vital Signs Date Time Temp Pulse Resp B/P (MAP) Pulse Ox O2 Delivery O2 Flow Rate FiO2 02/20/25 12:57 18 02/20/25 10:46 71 Room Air 02/20/25 10:42 95 2 28 02/20/25 09:56 145/94 02/20/25 07:00 97.0 Result Diagram: 02/20/25 0543 02/20/25 0543 General examination: Alert, awake, oriented to time place person, obese, on oxygen 2 L via nasal cannula HEENT: PERRL, moist oral mucosa, EOMI Pulmonary: Bilateral normal vesicular breath sounds are heard. No wheezing and crepitation. Cardiac: Heart rate and rhythm is regular, heard S1-S2, no murmur, rub or gallop Gastrointestinal: nondistended, soft, nontender, no guarding, no rebound Extremities: Right lower extremity swollen than the left. Skin: w/d/i, no rash. Reduced discoloration over the right foot lateral aspect Neuro: No focal neurological deficits Psych: normal affect Coagulation Studies Laboratory Tests Test 02/19/25 05:21 Prothrombin Time 10.4 SECONDS (9.0-12.0) INR International Normalized Ratio 1.0 INR Activated Partial Thromboplast Time 31 SECONDS (22-32) Coagulation Comments Advance Care Planning Advanced Care plannin - 30 Minutes Assessment Assessment 50s 4-year-old male with a past medical history of multiple episodes of pulmonary embolism and DVT admitted for shortness of breaths and chest pain and admitted for acute hypoxemic respiratory failure secondary to obstructive sleep apnea, cor pulmonale, cardiomyopathy and on evaluation with a Lexiscan, negative results and echocardiogram showed cardiomyopathy. Plan Plan Acute hypoxemic respiratory failure 2/2 below 1) Bilateral PE and DVT history, poor drug compliance, failed outpatient therapy 2) Possible obstructive sleep apnea 3) Cor pulmonale with Cardiomyopathy 02/19/2025 CBC , CMP, urinalysis is normal. Troponins and proBNP is normal PT INR is normal Echocardiogram on 01/17/2025 showed moderate concentric hypertrophy. Left ventricle ejection fraction of 70%. Started on apixaban 10 mg b.i.d, albuterol q.6h p.r.n, Methylprednisolone 60 mg IV b.i.d. Ordered ABG and we will follow up the result. 02/20/2025 Blood pressures are in 150s on 160s. CBC and CMP is normal except the sodium level of 134. Complete urine examination is negative. ABG is not impressive. Evaluated for coronary artery disease with a Lexiscan which showed negative study. Echo on 02/19/2025 showed left atrium, right ventricle dilatation with moderate concentric hypertrophy. We will continue losartan 50 and amlodipine 10 mg daily. Hyperlipidemia LDL on 01/18/2025 is 126 We will continue atorvastatin 40 mg daily Hypertension Blood pressures are in 170 under trended down to 150s On Losartan 50 mg p.o. once daily We will monitor the blood pressure is with goal is less than 130 02/20/2025 Blood pressures are elevated up to 160s, started on amlodipine 10 mg and we will continue the losartan 50 mg Obesity, class three with a BMI of 41.8 Needs sleep specialist consultation outpatient and sleep studies, polysomnography Code status: Full code Diet: Heart healthy diet DVT prophylaxis: Apixaban PT: Ordered Prognosis: Guarded Raj Hyatt resident Date of Service: February 20, 2025 Billing Provider: VJ ARZATE MD Common Visit Codes: [id number] INP/OBS CARE(HIGH) RAJ HYATT, [facility] February 20, 2025 13:46 VJ ARZATE MD February 20, 2025 17:07
[2025-02-20] MEDS: amLODIPine 5mg tablet PO SCH (14:30)
[2025-02-21] MEDS: morphine 2 MG/ML inj. syringe IV PRN
[2025-02-21 02:00] VITALS: BP 130/75; PULSE 72; RESP 19; TEMP 97.7; O2SAT 93
[2025-02-21] MEDS ORDERED: ALBU8HFA INH (02:05)
[2025-02-21 06:31] LABS: BASOPHILS % (AUTO) 0.4 % (0-1); EOSINOPHILS % (AUTO) 0 % (0-6); HEMATOCRIT 51.7 % (42.0-52.0); HEMOGLOBIN 17.7 g/dl (14.0-17.9); LYMPHOCYTES % (AUTO) 7.5 % (21-51); MEAN CORPUSCULAR HEMOGLOBIN 29.7 PG (27.0-31.0); MEAN CORPUSCULAR HGB CONC 34.3 g/dL (33.0-36.5); MEAN CORPUSCULAR VOLUME 86.6 FL (78-98); MEAN PLATELET VOLUME 8.5 FL (7.4-10.4); MONOCYTES # (AUTO) 0.4 X10'3 (0-0.9); MONOCYTES % (AUTO) 3.5 % (2-12); NEUTROPHILS # (AUTO) 11.2 X10'3 (1.8-7.7); NEUTROPHILS % (AUTO) 88.6 % (42-75); PLATELET COUNT 361 X10'3 (140-440); RED BLOOD COUNT 5.97 X10'6 (4.70-6.10); RED CELL DISTRIBUTION WIDTH 12.7 % (11.5-14.5); WHITE BLOOD COUNT 12.7 X10'3 (4.5-11.0)
[2025-02-21 06:47] LABS: ALANINE AMINOTRANSFERASE 19 U/L (12-78); ALBUMIN 3.5 G/DL (3.4-5.0); ALBUMIN/GLOBULIN RATIO 0.8 (1.1-1.5); ALKALINE PHOSPHATASE 98 IU/L (46-116); ANION GAP 10 (8-16); ASPARTATE AMINO TRANSFERASE 15 U/L (10-37); BILIRUBIN,TOTAL 0.7 MG/DL (0.1-1.0); BLOOD UREA NITROGEN 20 MG/DL (7-18); BUN/CREATININE RATIO 23.3 (10.0-20.0); CALCIUM 9.3 MG/DL (8.5-10.1); CHLORIDE 100 MMOL/L (99-107); CREATININE 0.86 MG/DL (0.60-1.10); GLUCOSE 132 MG/DL (70-104); MAGNESIUM 2.2 MG/DL (1.5-2.4); POTASSIUM 4.5 MMOL/L (3.5-5.1); SODIUM 134 MMOL/L (135-145); eCRCL 125 ML/MIN; eGFR > 90 ML/MIN
[2025-02-21 08:00] VITALS: RESP 18; O2SAT 97
[2025-02-21 08:14] VITALS: BP_SYST 135; PULSE 67
[2025-02-21] MEDS ORDERED: ATOR20TA66 PO (10:23)
[2025-02-21] MEDS ORDERED: APIX5TAB3 PO (10:23)
[2025-02-21] MEDS ORDERED: LOSA50TA64 PO (10:23)
[2025-02-21] MEDS ORDERED: ACET-2119 PO (10:23)
[2025-02-21] MEDS ORDERED: PRED10TA23 PO (10:23)
[2025-02-21] MEDS ORDERED: METO-395 PO (10:23)
[2025-02-21 10:52] VITALS: RESP 16
--- NOTE | 2025-02-21 13:13 | DISCHARGE SUMMARY-Residence ---
Discharge Summary Providers to Resident Creating Document: RAJ HYATT, RES ~ Discharge Summary Admission Diagnosis: DVT WITH CHEST PAIN Hospital Course DATE OF ADMISSION: 02/19/2025 DATE OF DISCHARGE: 02/21/2025 Myocardial Perfusion Study with SPECT ON 02/20/2025 Impression: Normal left ventricular size, wall motion, and function, without evidence of infarction or of myocardium at ischemic risk. The left ventricular ejection fraction is 69%. ECHO ON 02/19/2025 LEFT VENTRICLE Normal LV size and function. Moderate concentric hypertrophy. LVEF is 60-65%. RIGHT VENTRICLE RV appears dilated with normal systolic function. ATRIA Left atrium appears mildly dilated. AORTIC VALVE Trileaflet AV appears mildly sclerotic without stenosis. Trace insufficiency. MITRAL VALVE Mild MV annular calcification without stenosis. Trace regurgitation. TRICUSPID VALVE TV appears structurally normal with trace regurgitation. PULMONIC VALVE Normal PV without stenosis, physiologic insufficiency. PERICARDIUM Normal pericardium. No effusion. CT ANGIO WITH IV CONTRAST ON 02/19/2025 IMPRESSION: 1. No pulmonary embolism is identified. Some of the distal pulmonary arteries cannot be evaluated due to suboptimal opacification. 2. Motion artifacts. CHEST XRAY ON 02/19/2025 IMPRESSION: Cardiomegaly without overt failure. Discharge Diagnosis\Comment: Acute hypoxemic respiratory failure Bilateral PE, failed outpatient therapy DVT history poor drug compliance. Obesity, three Obstructive sleep apnea Cor pulmonale Hypertrophic cardiomyopathy Hypertension Hyperlipidemia Operations\Procedures: None Consultants: None Complications: None Condition on DC: Stable New Medications: Acetaminophen (Tylenol) 325 Mg Tablet 1 TAB PO Q4HPRN PRN for pain or fever for 5 Days, #30 TAB Metoprolol Succinate (Metoprolol Succinate) 25 Mg Tab.sr.24h 25 MG PO DAILY for 30 Days, #30 TAB.SR 0 Refills Prednisone (Prednisone) 10 Mg Tablet 20 MG PO DAILY for 5 Days, #10 TABLET Atorvastatin Calcium (Atorvastatin Calcium) 20 Mg Tablet 40 MG PO DAILY for 30 Days, #60 TAB Losartan Potassium (Losartan Potassium) 50 Mg Tablet 50 MG PO DAILY for 30 Days, #30 TAB Changed Medications: Apixaban (Eliquis) 5 Mg Tablet 5 MG PO BID for 30 Days, #60 AHFU (Medication details modified) [id number] BID FOR 5days then 5 mg BID Continued Medications: albuterol inhaler (Pro-Air Inhaler) 8.5 Gm Inhaler 2 PUFFS INH 5XD Discharge Summary: HPI AT THE TIME OF ADMISSION: 54-year-old male with a past medical history of to two episodes of pulmonary embolism and 5-6 episodes of DVT of right lower extremity, hypertension, chronic backache, obesity presented to the ED after failed outpatient therapy for pulmonary embolism. He endorses that he was recently admitted couple of weeks back here , after discharging he could not able to get the apixaban anticoagulation because of insurance problem. He was not on any Eliquis and he did not take even one dose of the Eliquis. Complained of chest pain on both sides of the chest, rated 7/10, radiating to back, aggravated with taking deep breathe. Endorses bilateral leg pain more on the right leg. Complaint of shor tness of breaths, class four, associated with orthopnea and PND. Endorses swelling over the both legs more on the right leg than the left. Reddish discoloration of the right foot. Endorses increased cough for the past 10 days, dry and feeling like as if he is going to throw up. Denied hemoptysis. He endorses that he has a headache while he is coughing. He denied fever, pain a bdomen, abdominal distention, palpitations COURSE IN THE HOSPITAL: 54-year-old male admitted with acute hypoxemic respiratory failure secondary to bilateral PE with the DVT history, poor drug compliance, failed outpatient therapy, obstructive sleep apnea, cor pulmonale with cardiomyopathy. CBC, CMP, urinalysis is normal. Troponins, PT , INR and proBNP is normal. Old Echocardiogram on 01/17/2025 showed moderate concentric hypertrophy. Left ventricle ejection fraction of 70%. Patient received oxygen , apixaban 10 mg b.i.d, albuterol q.6h p.r.n, Methylprednisolone 60 mg IV b.i.d. ABG is not much impressive. Evaluated for coronary artery disease with a Lexiscan which showed negative study. Echocardiogram on 02/19/2025 showed left atrium, right ventricle, dilatation with moderate concentric LVH. We treated with losartan 50 mg and amlodipine 10 mg. We treated hyperlipidemia with atorvastatin 40 mg. Outpatient follow up with sleep specialist for up obesity. EXAMINATION AT THE TIME OF DISCHARGE: Vital Signs Date Time Temp Pulse Resp B/P (MAP) Pulse Ox O2 Delivery O2 Flow Rate FiO2 02/21/25 10:52 16 02/21/25 08:14 67 02/21/25 08:00 97 Room Air 02/21/25 06:55 0 21 02/21/25 02:00 97.7 130/75 (93) General examination: Alert, awake, oriented to time place person, obese, on oxygen 2 L via nasal cannula HEENT: PERRL, moist oral mucosa, EOMI Pulmonary: Bilateral normal vesicular breath sounds are heard. No wheezing and crepitation. Cardiac: Heart rate and rhythm is regular, heard S1-S2, no murmur, rub or gallop Gastrointestinal: nondistended, soft, nontender, no guarding, no rebound Extremities: Right lower extremity swollen than the left. Skin: w/d/i, no rash. Reduced discoloration over the right foot lateral aspect Neuro: No focal neurological deficits Psych: normal affect Laboratory Tests Test 02/20/25 05:43 02/21/25 05:41 White Blood Count 7.7 X10'3 12.7 X10'3 Red Blood Count 5.72 X10'6 5.97 X10'6 Hemoglobin 17.3 g/dl 17.7 g/dl Hematocrit 49.8 % 51.7 % Mean Corpuscular Volume 87.1 FL 86.6 FL Mean Corpuscular Hemoglobin 30.3 PG 29.7 PG Mean Corpuscular Hemoglobin Concent 34.8 g/dL 34.3 g/dL Red Cell Distribution Width 12.8 % 12.7 % Platelet Count 324 X10'3 361 X10'3 Mean Platelet Volume 8.7 FL 8.5 FL Neutrophils (%) (Auto) 89.4 % 88.6 % Lymphocytes (%) (Auto) 9.2 % 7.5 % Monocytes (%) (Auto) 1.2 % 3.5 % Eosinophils (%) (Auto) 0 % 0 % Basophils (%) (Auto) 0.2 % 0.4 % Neutrophils # (Auto) 6.9 X10'3 11.2 X10'3 Lymphocytes # (Auto) 0.7 X10'3 1.0 X10'3 Monocytes # (Auto) 0.1 X10'3 0.4 X10'3 Eosinophils # (Auto) 0.0 X10'3 0.0 X10'3 Basophils # (Auto) 0.0 X10'3 0.0 X10'3 CBC Comment Sodium Level 134 MMOL/L 134 MMOL/L Potassium Level 4.6 MMOL/L 4.5 MMOL/L Chloride Level 101 MMOL/L 100 MMOL/L Carbon Dioxide Level 21.7 MMOL/L 24.0 MMOL/L Anion Gap 11 10 Blood Urea Nitrogen 15 MG/DL 20 MG/DL Creatinine 0.88 MG/DL 0.86 MG/DL Estimated GFR/1.73 m2 90 ML/MIN > 90 ML/MIN BUN/Creatinine Ratio 17.0 23.3 Glucose Level 131 MG/DL 132 MG/DL Calcium Level 9.1 MG/DL 9.3 MG/DL Magnesium Level 2.0 MG/DL 2.2 MG/DL Total Bilirubin 0.7 MG/DL 0.7 MG/DL Aspartate Amino Transf (AST/SGOT) 15 U/L 15 U/L Alanine Aminotransferase (ALT/SGPT) 22 U/L 19 U/L Alkaline Phosphatase 104 IU/L 98 IU/L Total Protein 8.1 G/DL 8.0 G/DL Albumin 3.5 G/DL 3.5 G/DL Globulin 4.6 G/DL 4.5 G/DL Albumin/Globulin Ratio 0.8 0.8 Triglycerides Level 45 MG/DL Cholesterol Level 191 MG/DL LDL Cholesterol 131 MG/DL HDL Cholesterol 48 MG/DL Cholesterol/HDL Ratio 4.0 Chemistry Comments DISCHARGE ADVICE: New Medications: Acetaminophen (Tylenol) 325 Mg Tablet Metoprolol Succinate 25 Mg Tab.sr.24h Prednisone 10 Mg Tablet Atorvastatin Calcium 20 Mg Tablet Losartan Potassium 50 Mg Tablet Changed Medications: Apixaban (Eliquis) 5 Mg Tablet [id number] BID FOR 5days then 5 mg BID Continued Medications: albuterol inhaler (Pro-Air Inhaler) 8.5 Gm Inhaler fup with pcp in 1 week with cbc,cmp,thrombophilia profile. continue apixaban 10mg for 5 days then continue 5mg bid. continue losartan 50mg po daily,atorvastatin 40mg & metoprolol 25mg daily po strictly adhere to medications of eliquis & read side effects of medications prescribed . call 911 or visit er if emeregency. *Problems/Diagnosis: (1) Acute hypoxemic respiratory failure (2) Bilateral pulmonary embolism (3) Obstructive sleep apnea (4) Cor pulmonale (5) Hypertrophic cardiomyopathy (6) Hypertension (7) Obesity (8) Hypercholesteremia (9) Bilateral pulmonary embolism Status: Acute (10) DVT (deep venous thrombosis) Total Time Spent on D/C: > 30 Minutes Date of Service: February 21, 2025 Billing Provider: VJ ARZATE MD Common Visit Codes: 55111-IBF/OBS DISCH DAY >30min RAJ HYATT, [facility] February 21, 2025 12:35 VJ ARZATE MD February 21, 2025 17:25
[2025-02-26] MEDS ORDERED: apixaban 5mg tablet PO SCH (08:00)
== END 2025-02-21 11:37 | disposition home or self-care (01) | DRG 189 ==
LOC: ER 05:04 → ED HOLD 07:28 → PCU 3S 13:55
PROVIDERS: ADMIT Internal Medicine; ATTEND Internal Medicine
PROC: 4A02XM4 Measurement of Cardiac Total Activity, External Approach (ICD-10-PCS; principal; 2025-02-20)
PROC: 3E033HZ Introduction of Radioactive Substance into Peripheral Vein, Percutaneous Approach (ICD-10-PCS; 2025-02-20)
PROC: B32T1ZZ Computerized Tomography (CT Scan) of Left Pulmonary Artery using Low Osmolar Contrast (ICD-10-PCS; 2025-02-20)
PROC: B3201ZZ Computerized Tomography (CT Scan) of Thoracic Aorta using Low Osmolar Contrast (ICD-10-PCS; 2025-02-20)
PROC: B32S1ZZ Computerized Tomography (CT Scan) of Right Pulmonary Artery using Low Osmolar Contrast (ICD-10-PCS; 2025-02-20)
DX: J96.01 Acute respiratory failure with hypoxia (principal); Z68.41 Body mass index [BMI] 40.0-44.9, adult; I42.2 Other hypertrophic cardiomyopathy; G47.33 Obstructive sleep apnea (adult) (pediatric); I27.81 Cor pulmonale (chronic); E78.5 Hyperlipidemia, unspecified; E66.813 Obesity, class 3; I10 Essential (primary) hypertension; Z79.01 Long term (current) use of anticoagulants; Z79.899 Other long term (current) drug therapy; Z86.718 Personal history of other venous thrombosis and embolism
CPT/HCPCS: 36415; 36600; 71045; 71275; 78452; 80053; 80061; 81001; 82803; 83735; 83880; 84484; 85018; 85025; 85610; 85730; 87081; 93005; 93017; 93308; 94640; 94760; 96361; 96374; 96375; 96376; 99285; A4615; A9500; G0378; J1171; J2270; J2785; J2919; J7030; Q9967

== ENCOUNTER 2025-09-20 03:18 | Inpatient (IN) | payer BC ==
[~2025-09-20] VITALS: Ht 198.1 cm; Wt 150.0 kg
[~2025-09-20 03:18] MED LIST changes: -ALBU18HF2 IH; +ALBU8HFA INH; +ATOR20TA66 PO; -HYDR-3965 PO; -LOSA25TA41 PO; +LOSA50TA64 PO; +METO-395 PO
--- NOTE | 2025-09-20 03:42 | Physician Documentation ---
History of Present Illness ~ Chief Complaint: Chest Pain Stated Complaint: CHEST PAIN/SOB Time Seen by MD: 03:42 Primary Medical Doctor: DR. PEREZ HPI Patient presents to the emergency room with chief complaint of chest pain and racing heart. No prior instances. Patient has had a stress test in February of 2025 which was clear. He has a history of both pulmonary embolisms and DVT. He has had increased pain that has right lower extremity that has since that time has had an ultrasound which was negative for evolving DVT. Patient states he got up at about midnight to urinate and when he laid back down to go to asleep he noticed his heart was racing and began to have chest pain. Symptoms Snowball to wear the chest pain became severe therefore he called EMS. Medication Reconciliation Allergies: Coded Allergies: No Known Allergies (Unverified , 09/20/25) Scheduled Apixaban (Eliquis), 1 TAB PO Q12H, (Reported) Discontinued Medications Apixaban (Eliquis), 5 MG PO BID Discontinued Reason: Other Apixaban (Eliquis), 1 TAB PO Q12H Discontinued Reason: Other Atorvastatin Calcium (Atorvastatin Calcium), 40 MG PO DAILY Discontinued Reason: Other Losartan Potassium (Losartan Potassium), 50 MG PO DAILY Discontinued Reason: Other Metoprolol Succinate (Metoprolol Succinate), 25 MG PO DAILY Discontinued Reason: Other albuterol inhaler (Pro-Air Inhaler), 2 PUFFS INH 5XD, (Reported) Discontinued Reason: Other Past Medical History Past Medical History: Hypertension, Pulmonary Embolism, Deep Vein Thrombosis Past Surgical History: no surgical history Patient History: Patient reports no known family medical history. Alcohol Use: Occasionally Drug Use: none Lives with: Family Lives In: Home Occupation: employed Review of Systems ROS All review of systems negative except as per HPI Physical Exam Vital Signs: Temperature: 96.8, Source: Temporal, Heart Rate: 198, Respiratory Rate: 24, BP: 87/78, Pulse Oximetry: 98, Weight: 150.000 Physical Exam General: Patient is awake, alert, oriented x4 in moderate distress and diaphoretic Head: Normocephalic and atraumatic. Eyes: Conjunctival normal. EOMI. PERRL. ENT: Mucous membranes moist. Neck: Supple, trachea is midline. Chest: Clear to auscultation bilaterally without rales, rhonchi, or wheezes. There is no accessory muscle use or retractions. Cardiac: Tachycardic and regular without murmurs, gallops, or rubs. Extremities: Normal strength. Normal range of motion. Increased discoloration to right leg compared to left. Neurovascularly intact Procedures Procedures Cardioversion: Attempts at adenosine failed. Patient continued to have crashing sternal chest pain therefore cardioversion indicated. Ten of the etomidate administered for sedation than 150 joules of synchronized cardioversion was performed with resolution of SVT in improvement of chest pain. Total time of procedure 2 minutes. Progress Results/Orders Results/Orders Orders - ADAN JOSHI MD Chest,Single View (09/20/25 03:55) Saline Lock (09/20/25 03:42) Monitor (09/20/25 03:42) Oxygen (09/20/25 03:42) Hs Troponin I W Calculations (09/20/25 05:42) Hs Troponin I W Calculations (09/20/25 06:42) Page Hospitalist (09/20/25 04:36) Fill Out Med Reconciliation (09/20/25 04:36) D-Dimer (09/20/25 04:37) Completed Orders - ADAN JOSHI MD Morphine 4mg/Ml Inj. (Morphine Inj.) (09/20/25 03:45) Cbc/Diff (09/20/25 03:42) MG (09/20/25 03:42) Electrocardiogram (09/20/25 03:42) PBNP (09/20/25 03:42) Chest,Single View (09/20/25 03:55) Aspirin 81mg Chew Tablet (Aspirin 81mg C (09/20/25 03:45) BMP (09/20/25 03:42) Hs Troponin I W Calculations (09/20/25 03:42) Metoprolol Tartrate Inj (Lopressor Iv) (09/20/25 03:45) Ondansetron Inj. (Zofran 4mg/2ml Vial) (09/20/25 03:45) Hydromorphone 0.5 Mg/0.5 Ml/Pf (Dilaudid (09/20/25 04:40) Medications Received in ER Medications (Trade) Dose Ordered Sig/[place] Route PRN Reason Start Time Stop Time Status Last Admin Dose Admin (morphine inj.) 6 mg ONCE ONCE IV 09/20/25 03:45 09/20/25 03:46 DC 09/20/25 03:47 6 MG (aspirin 81MG chew tablet) 324 mg ONCE ONCE PO 09/20/25 03:45 09/20/25 03:46 DC 09/20/25 03:47 324 MG (Lopressor IV) 5 mg ONCE ONCE IV 09/20/25 03:45 09/20/25 03:46 DC 09/20/25 03:56 5 MG (Zofran 4mg/2ml vial) 4 mg ONCE ONCE IV 09/20/25 03:45 09/20/25 03:46 DC 09/20/25 03:55 4 MG Vital Signs 09/20/25 09/20/25 09/20/25 09/20/25 03:26 03:35 03:40 03:47 Temp 96.8 Pulse 198 168 168 Resp 24 28 31 18 B/P (MAP) 87/78 87/72 (77) 167/121 (136) Pulse Ox 98 98 96 09/20/25 09/20/25 09/20/25 09/20/25 03:50 03:56 04:00 04:06 Pulse 104 106 108 Resp 28 33 21 B/P (MAP) 221/146 (171) 178/110 (132) Pulse Ox 96 98 09/20/25 04:25 Pulse 89 Resp 23 B/P (MAP) 178/115 (136) Pulse Ox 96 Laboratory Tests Test 09/20/25 03:38 White Blood Count 9.8 Red Blood Count 6.11 H Hemoglobin 18.2 *H Hematocrit 54.4 H Mean Corpuscular Volume 89.1 Mean Corpuscular Hemoglobin 29.8 Mean Corpuscular Hemoglobin Concent 33.4 Red Cell Distribution Width 13.5 Platelet Count 283 Mean Platelet Volume 8.7 Neutrophils (%) (Auto) 45.7 Lymphocytes (%) (Auto) 39.7 Monocytes (%) (Auto) 12.0 Eosinophils (%) (Auto) 1.5 Basophils (%) (Auto) 1.1 H Neutrophils # (Auto) 4.5 Lymphocytes # (Auto) 3.9 Monocytes # (Auto) 1.2 H Eosinophils # (Auto) 0.1 Basophils # (Auto) 0.1 CBC Comment D-Dimer Comment Sodium Level 142 Potassium Level 3.6 Chloride Level 104 Carbon Dioxide Level 28.2 Anion Gap 10 Blood Urea Nitrogen 17 Creatinine 1.25 H Estimated GFR/1.73 m2 60 BUN/Creatinine Ratio 13.6 Glucose Level 119 H Calcium Level 9.3 Magnesium Level 2.2 Troponin I High Sensitivity 14 Pro-B-Type Natriuretic Peptide 164 H Albumin 3.7 Chemistry Comments EKG/XRAY/CT/US/VASC/MRI EKG : Additional Comment EKG interpreted by myself shows time of 0322, rate 179, SVT, left axis deviation, no ST-T changes EKG interpreted by myself shows time of 0344, rate 101, sinus rhythm, left axis deviation, no ST changes Chest X-Ray : Additional Comments Exam: CHEST,SINGLE VIEW CHEST RADIOGRAPH INDICATION: CP TECHNIQUE: Single frontal view of the chest was obtained COMPARISON: DI CHEST,SINGLE VIEW on DOS: 08/29/25, DI CHEST,SINGLE VIEW on DOS: 02/19/25, DI CHEST,SINGLE VIEW on DOS: 01/17/25, DI CHEST,SINGLE VIEW on DOS: 09/30/23, CHEST,SINGLE VIEW on DOS: 01/28/21 FINDINGS: Lines and Tubes: None Lungs: Clear Pleura: No effusion. No pneumothorax. Cardiomediastinal contours: Cardiomegaly. Bones: Unremarkable IMPRESSION: 1. Cardiomegaly. Medical Decision Making Additional information obtaine: old records Findings Patient presents to the emergency room with chest pain with a heart rate of 180. Differentials include but are not limited to SVT, ACS, atrial flutter, atrial fibrillation therefore emergent labs and imaging indicated. Patient having severe substernal chest pain therefore cardioversion was indicated and patient was successfully cardioverted on 1st attempt with repeat EKG showing sinus rhythm. Patient's chest pain improved. Patient's presentation that has fairly dramatic with diaphoresis and crushing substernal chest pain. Patient that has not feel safe going home. We will admit for further investigation. Patient took his nighttime Eliquis Heart Score: 5 Differential Dx:Considerations: Include: angina, aortic dissection, chest wall pain, cholelithiasis, CHF, costochondritis, esophageal reflux/spasm, gastritis, herpes zoster, myocardial infarction, pericarditis, pleuritis, pancreatitis, pneumonia, pneumothorax, pulmonary embolus, other Departure Admitted to Inpatient Unit: yes, to hospitalist Impression: Primary Impression: Chest pain Additional Impressions: SVT (supraventricular tachycardia) History of pulmonary embolism Condition: Guarded Referrals: NO PRIMARY CARE PROVIDER (PCP) Critical Care Note Total Time (mins): 39 Critical Care Note The very real possibility of a deterioration of this patient's condition required the highest level of my preparedness for sudden, emergent intervention. I provided critical care services, which included medication orders, frequent reevaluations of the patient's condition and response to treatment, ordering and reviewing test results, and discussing the case with various consultants. Excludes time spent performing separately billable procedures. The critical care time associated with the care of the patient was 39 minutes not counting procedures Signature Scribe Signature: No scribe Attestation: The note accurately reflects work and decisions made by me.Adan Joshi MD 09/20/25 04:34 ADAN JOSHI MD Sep 20, 2025 03:42
--- NOTE | 2025-09-20 03:43 | ELECTROCARDIOGRAPH REPORT ---
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
[2025-09-20] MEDS: morphine 4 MG/ML inj SYRINge IV ONE (03:47)
[2025-09-20] MEDS: ondansetron/PF 4mg/2ml inj IV ONE (03:55)
[2025-09-20] MEDS: metoprolol tartrate 1mg/ml inj IV ONE (03:56)
[2025-09-20 04:01] LABS: MEAN PLATELET VOLUME 8.7 FL (7.4-10.4); RED CELL DISTRIBUTION WIDTH 13.5 % (11.5-14.5)
--- NOTE | 2025-09-20 04:12 | RADIOLOGY REPORT ---
CHEST RADIOGRAPH INDICATION: CP TECHNIQUE: Single frontal view of the chest was obtained COMPARISON: DI CHEST,SINGLE VIEW on DOS: 08/29/25, DI CHEST,SINGLE VIEW on DOS: 02/19/25, DI CHEST,SINGLE VIEW on DOS: 01/17/25, DI CHEST,SINGLE VIEW on DOS: 09/30/23, CHEST,SINGLE VIEW on DOS: 01/28/21 FINDINGS: Lines and Tubes: None Lungs: Clear Pleura: No effusion. No pneumothorax. Cardiomediastinal contours: Cardiomegaly. Bones: Unremarkable IMPRESSION: 1. Cardiomegaly.
[2025-09-20] MEDS ORDERED: APIX5TAB3 PO (04:21)
[2025-09-20 04:23] LABS: CREATININE 1.25 MG/DL (0.60-1.10); PRO BRAIN NATRIURETIC PEPTIDE 164 PG/ML (0-125); TOTAL CARBON DIOXIDE 28.2 MMOL/L (24-32); eCRCL 86 ML/MIN; eGFR 60 ML/MIN
[2025-09-20] MEDS: HYDROmorphone inj. 0.5 MG/0.5 ML DISP.SYRIN IV ONE (04:51)
--- NOTE | 2025-09-20 04:57 | ELECTROCARDIOGRAPH REPORT ---
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
[2025-09-20] MEDS ORDERED: magnesium hydroxide 30ml (MOM) UD suspension PO PRN (05:20)
[2025-09-20] MEDS ORDERED: magnesium Cl slow-release 64mg tablet PO PRN (05:20)
[2025-09-20] MEDS ORDERED: mag hydrox/Alum hydrox/simeth 30ml oral suspension PO PRN (05:20)
[2025-09-20] MEDS ORDERED: magnesium sulf-water 2g/50mL 50 ML IV PRN (05:20)
[2025-09-20] MEDS ORDERED: potassium Cl 20 mEq SR tablet PO PRN ×2 (05:20)
[2025-09-20] MEDS ORDERED: ondansetron/PF 4mg/2ml inj IV PRN (05:20)
[2025-09-20] MEDS ORDERED: potassium Cl 40MEQ/1/2NS 520ml 520 ML IV PRN (05:20)
[2025-09-20] MEDS ORDERED: magnesium sulf-water 4G/100mL 100 ML IV PRN (05:20)
[2025-09-20] MEDS ORDERED: regadenoson 0.4mg/5ml syringe IV PRN (05:30)
[2025-09-20] MEDS ORDERED: aminophylline 250mg/10ml inj. IV PRN (05:30)
[2025-09-20] MEDS ORDERED: metoprolol tartrate 1mg/ml inj IV PRN (05:30)
--- NOTE | 2025-09-20 05:34 | ELECTROCARDIOGRAPH REPORT ---
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
[2025-09-20] MEDS: normal saline 1000ml 1,000 ML IV ONE (05:49)
[2025-09-20] MEDS: PERFLUTREN PROTEIN-A MICROSPHR (Optison) 0.22 MG/ML 3ML VIAL IV ONE (05:49)
--- NOTE | 2025-09-20 05:50 | HISTORY AND PHYSICAL-Residence ---
History & Physical Providers to Resident Creating Document: MATHEUS PARISH, RES ~ History of Present Illness Primary Medical Doctor: DR. PEREZ Reason for Admit\Complaint: Chest pain and palpitations History of Present Illness A 54-year-old male with a medical history of deep vein thrombosis and pulmonary embolisms drove to the emergency department by himself, after he experienced substernal chest pain, described the pain as crushing type of pain rated the pain nine on 10 associated with the palpitations, blurry vision and diaphoresis. Patient stated that he was completely fine when he woke up to urinate and started developing palpitations and chest pain post that. He rested for a while to see if it would go away on its own, but the palpitations and chest pain persisted prompting the patient to come to the emergency department. Patient has a significant history of pulmonary embolisms and DVTs in the past is currently on Eliquis 5 mg b.i.d. The patient reports having undergone a thorough evaluation for malignancy and hypercoagulability as an outpatient, with all tests reportedly returning negative results. ED course: On presentation, 221/146 when patient's EKG showed supraventricular tachycardia. Multiple attempts at adenosine failed. Patient continued to have crashing sternal chest pain therefore cardioversion was done 150 joules of synchronized cardioversion was performed with resolution of SVT in improvement of chest pain. Primary care physician Dr. [employer] Librarian: Dr. 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 Allergies: Coded Allergies: No Known Allergies (Unverified , 09/20/25) Home Medications Home Medications Active Reported Eliquis (Apixaban) 5 Mg Tablet 1 Tab PO Q12H Past Medical History Past Medical History Right lower extremity DVT Pulmonary embolisms Hyperlipidemia Hypertension Obesity Polycythemia Past Surgical History Surgical History Comment Arthroscopic right knee surgery Left corneal surgery Family History Family History: Patient reports no known family medical history. Past Social History Social History Comment Patient occasionally drinks alcohol, denied any history of smoking, using illicit drug use Patient's family history, mother has a history of breast cancer Smoking: Cigar Alcohol Use: Occasionally Drug Use: None Lives with: Family Lives In: Home Occupation: employed ROS ROS Constitutional: No fever, no dizziness, no weakness, no decrease in appetite HEENT: Normal vision. No sore throat, epistaxis, tinnitus Cardiovascular: Reports Mild chest pain/discomfort, reports palpitations, no syncope. no pedal edema Respiratory: No sob, cough,hemoptysis Gastrointestinal: No abdominal pain, nausea, vomiting. No diarrhea, melena. Genitourinary: No frquency, urgency, incontinence, nocturia. No dysuria, hematuria Musculoskeletal: Normal, no pains Endocrine: No fatigue, polydipsia, polyuria. No heat or cold intolerance Neurologic: No headache, vertigo. No weakness, numbness or tingling of extremities Psychiatric: No hallucinations/delusions, no anhedonia, no suicidal ideation Hematologic: No bruises Exam Vitals: Vital Signs Date Time Temp Pulse Resp B/P (MAP) Pulse Ox O2 Delivery O2 Flow Rate FiO2 09/20/25 04:51 17 09/20/25 04:25 89 178/115 (136) 96 09/20/25 03:26 96.8 General: General: Awake, oriented to person, place and time HEENT: Conjunctive are pink, sclerae clear, no icterus, pupil is equal in both sides, reactive to light, no ear discharge, no pharyngeal erythema or an edema. Neck: Supple, no JVD, no lymphadenopathy and thyromegaly. Chest: Equal air entry on both lungs, no additional sounds no rhonchi no wheezing at the moment. Cardiovascular: S1-S2 regular sinus rhythm and, tachycardic, no gallops, no rubs, no murmurs Abdomen: No visible peristalsis, Bowel sounds present on auscultation, soft, no tenderness, no guarding, no rigidity Extremities: Right lower extremity discoloration and bigger in size compared to the left lower extremity, pedal edema noted Neurologic: Mental status: alert and conscious, oriented to place, person and time, preserved memory, normal speech. Cranial nerves I-XII: Normal. Motor system: Preserved power, coordination, no evidenced involuntary movements, strength 5/5 in four extremities. Sensory system: Preserved temperature, pain and vibration sensation. 2+ deep tendon reflexes in biceps, triceps, quadriceps. Negative Babinski. Cerebellar: No nystagmus, dysdiadochokinesia, normal [id number] testing. Musculoskeletal: No joint swelling, deformities, inflammations, and no scoliosis and back tenderness Skin: Warm and dry. Dry oral mucosa. Diagnostic Data Last Recorded Lab Results: 09/20/258 09/20/25 0338 Diagnostic Data: Laboratory Tests Test 09/20/25 03:38 D-Dimer 1.02 MG/L FEU (0-0.50) H D-Dimer Comment Advance Care Planning Advanced Care plannin - 30 Minutes (Spent 17 minutes of advanced care planning/resuscitative methods patient decided he wanted to be full code) Additional Plan Assessment: A 54-year-old male with a medical history of deep vein thrombosis and pulmonary embolisms she complains of palpitations and chest pain, currently being evaluated for it Stable angina Heart score 4 Patient presented with chief complaints of crushing substernal chest pain,10 associated with blurring of vision, palpitations and diaphoresis Initial troponins negative; EKG when patient came in significant for supraventricular tachycardia, patient was cardioverted Chest x-ray shows cardiomegaly Last Lexiscan which was done in February was negative Plan Considering patient's high risk and comorbidities, ordered Lexiscan for patient in a.m. Continue telemetry monitoring Consult Cardiology based on Lexiscan History of pulmonary embolism and DVTs Known history of right lower extremity deep vein thrombosis, right lower extremity appears discolored and bigger in size compared to left lower extremity D-dimer elevated at 1.03; Plan Ordered CTA chest ruled out PE, ordered venous ultrasound rule out any DVTs Continue patient on his home medication Eliquis 5 mg b.i.d. once med rec is done Hypertensive emergency, present on admission Patient denies history of hypertension and reports known of the density medications Historical records confirm prior diagnosis of hypertension with previous antihypertensive medication; received one dose of metoprolol tartrate 5 mg Initiated the patient on 5 mg IV hydralazine p.r.n. 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 stage II Patient's creatinine mildly elevated 1.25 Initiated the patient on fluids as he is scheduled for his Lexiscan and CTA chest prevent contrast induced nephropathy Ordered urine lytes Continue to monitor patient's kidney functions Hyperlipidemia Documented history of hyperlipidemia, patient denies any current use of lipid- lowering agent Was initially on atorvastatin but patient does not take any medications Initiated the patient on atorvastatin 80 mg H/o polycythemia Current hemoglobin is 18.5g/dl Currently hydrating the patient;monitor h&h Obesity BMI 38.2 kg/meter sq Recommended weight loss, dietary modification and physical exercise Code Status: Full code DVT Prophylaxis: Eliquis Lines/Tubes: PIV Nutrition: NPO for Lexiscan PT:yes Prognosis: Guarded Disposition: Patient is scheduled for Lexiscan in a.m., follow up with the CTA chest The above note has been reviewed and supervised by the senior resident PGY 2/PGY 3. Patient was seen and examined and discussed with attending physician Matheus Parish MD Internal medicine resident,PGY-1 Addendum I personally reviewed the chart, labs and imaging and reviewed the patient with the team. I agree with the assessment and plan as documented by the resident. Patient was seen through remote audio-visual assessment through HIPAA compliance setup. Date of Service: Sep 20, 2025 Billing Provider: KALEE SANDERS MD, JAHNAVI, RES Sep 20, 2025 05:50 KALEE SANDERS MD Sep 20, 2025 06:48
[2025-09-20] MEDS: HYDROmorphone/PF 0.2 MG/ML SYRINGE IV PRN (05:59)
[2025-09-20] MEDS ORDERED: hydrALAZINE 20mg/ml inj. IV PRN (06:05)
--- NOTE | 2025-09-20 06:15 | ELECTROCARDIOGRAPH REPORT ---
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
[2025-09-20 06:31] LABS: APTT 32 SECONDS (22-32); INR 1.0 INR
[2025-09-20] MEDS ORDERED: PERFLUTREN PROTEIN-A MICROSPHR (Optison) 0.22 MG/ML 3ML VIAL IV ONE (06:35)
--- NOTE | 2025-09-20 06:49 | RADIOLOGY REPORT ---
CTA Chest with intravenous contrast INDICATION: r/o pulmonary embolism COMPARISON: CT CTA CHEST PE W/ IV CONTRAST on DOS: 08/29/25, CT CTA CHEST PE W/ IV CONTRAST on DOS: 02/19/25, CT CTA CHEST PE W/ IV CONTRAST on DOS: 01/17/25, CTA CHEST on DOS: 11/01/22, CTA CHEST on DOS: 01/28/21 TECHNIQUE: Multidetector spiral CTA of the chest was performed of the chest with intravenous contrast. PULMONARY ANGIOGRAPHY PROTOCOL was utilized using a bolus- tracking technique centered on the main pulmonary artery. Axial, coronal and sagittal multiplanar and MIP reformats were performed. Radiation Dose : 1. Chest: CTDI volume is 108.6 mGy. Dose-length product is 1027.25 mGy*cm The dose indicators for CT are the volume Computed Tomography (CT) Dose Index (CTDIvol) and the Dose Length Product (DLP), and are measured in units of mGy and mGy-cm, respectively. These indicators are not patient dose, but values generated from the CT scanner acquisition factors. The report includes radiation exposure data for exposures received during this examination. FINDINGS: Pulmonary artery: Nonocclusive filling defect within the posterior right lower lobe segmental and subsegmental branch. No evidence of right heart strain. Lower neck: Normal thyroid. Lungs: No focal consolidation, pleural effusion or pneumothorax. Mild diffuse bilateral ground-glass opacity. Heart/Vascular Structures: Normal heart size. No pericardial effusion. Lymph Nodes: No adenopathy Musculoskeletal: No acute osseous abnormality. Soft tissues: Normal. Upper abdomen: Limited portions of the upper abdomen are unremarkable. IMPRESSION: 1. Nonocclusive pulmonary embolism within the posterior right lower lobe segmental and subsegmental branch. 2. No evidence of right heart strain. 3. Mild diffuse bilateral ground-glass opacity. Critical Result: Pulmonary embolus Findings discussed with Dr. Dunn at 09/20/2025 09:43 AM EST, and acknowledged receipt and understanding of the findings.
[2025-09-20 07:11] LABS: CHOL/HDL RATIO 3.2 (0.00-4.99); LDL CHOLESTEROL 131 MG/DL (50-100); PHOSPHORUS 3.6 MG/DL (2.3-4.5)
[2025-09-20] MEDS: HYDROmorphone/PF 0.2 MG/ML SYRINGE IV ONE (07:37)
[2025-09-20] MEDS: K and/or MAG REPLACEMENT MC SCH (08:00)
[2025-09-20] MEDS ORDERED: adenosine 3mg/ml 2ml vial IV ONE (08:00)
[2025-09-20] MEDS: docusate sod 100mg capsule PO SCH (08:00)
[2025-09-20] MEDS ORDERED: etomidate 2mg/ml inj. ONE (08:00)
[2025-09-20] MEDS: metoprolol tartrate 1mg/ml inj IV PRN (08:09)
--- NOTE | 2025-09-20 10:48 | VASCULAR REPORT ---
The above named patient was referred for a NON-INVASIVE LOWER EXTREMITY VENOUS EXAMINATION. The evaluation includes grayscale imaging, color flow Doppler and spectral analysis of the major deep and superficial lower extremity veins. Right Lower Extremity Venous Study for DVT Patient IN-PATIENT InaRSations Right leg pain Vein Imaging (Right) CFV (R): Compressible, Spontaneous, Respirophasic, Augmentation Reflux: ms SFJ (R): Compressible, Spontaneous, Respirophasic, Augmentation Reflux: ms FEM (R): Compressible, Spontaneous, Respirophasic, Augmentation Reflux: ms POP (R): Compressible, Spontaneous, Respirophasic, Augmentation Reflux: ms DFV (R): Compressible, Spontaneous, Respirophasic, Augmentation Reflux: ms PTV (R): Compressible, Spontaneous, Respirophasic, Augmentation Reflux: ms GSV (R): Compressible, Spontaneous, Respirophasic, Augmentation Reflux: ms Peroneals (R): not visualized Reflux: ms Vein Imaging (Left) CFV (L): Compressible, Spontaneous, Respirophasic, Augmentation Reflux: ms CONCLUSION Non-occluvie acute on chronic DVT to Right SFV and Right Pop Vein. Remainder of Right lower extremity appears patent. Contralateral CFV appears patent with respirophasic spontaneous flow and good augmentation.
[2025-09-20] MEDS ORDERED: HYDROcodone/acetaminophen 5mg/325mg tablet PO PRN (10:50)
[2025-09-20] MEDS: aspirin 81mg, enteric-coated 1 TAB TABLET.DR PO SCH (12:50)
[2025-09-20] MEDS: metoprolol succinate 25mg (24-HOUR) SR. Tablet PO SCH (12:50)
--- NOTE | 2025-09-20 17:12 | CONSULTATION REPORT ---
History of Present Illness Providers to CC CC: AURA GIRON MD ~ Reason for Admit\Admit Dx: Cardiology consultation History of Present Illness Patient with past medical history significant for multiple DVTs in the past presents secondary to substernal chest pain that was worse with coughing and deep breathing. He also has pain in his right thigh. He was found to be in SVT with heart rate in the 180s. Attempted adenosine with no effect and underwent synchronized cardioversion. Patient was successfully converted to sinus rhythm. No previous history of SVT but does report palpitations 1-2 times per year feeling like his heart is racing. He underwent a CT scan that showed a right lower lobe segmental and subsegmental pulmonary embolism which is a change from his previous CTA in February 2025. Ultrasound revealed right lower extremity DVT. Patient has pain at his thigh which is consistent with DVT location in the femoral vein. There is documented history of polycythemia. Patient denies knowing history of this. He denies having hypertension or high cholesterol. He states that he has had difficulty obtaining his Eliquis which he should be on indefinitely given his history of multiple blood clots in the past. States that his insurance only allows him to receive a 30 day supply at a time and prescriptions are getting sent in wrong. He for the more reports that he frequently forgets his medications. Allergies: Coded Allergies: No Known Allergies (Unverified , 09/20/25) Home Medications Home Medications Active Reported Eliquis (Apixaban) 5 Mg Tablet 1 Tab PO Q12H Past Medical History Medical History Comment Multiple PEs and DVTs in the past noncompliant with anticoagulation Questionable history of polycythemia Obesity Past Surgical History Surgical History Comment Orthopedic Past Family History Family History Comment Patient denies significant past family medical history. He states his only known family history is his mother had breast cancer Family History: Patient reports no known family medical history. Past Social History Social History Comment Patient denies smoking history. Drinks alcohol occasionally. Denies recreational drugs. Physical Exam Last Vital Signs Recorded: RN Vital Signs have been reviewed: Yes, Temperature: 96.8, Source: Temporal, Heart Rate: 71, Respiratory Rate: 19, BP: 138/103, Pulse Oximetry: 94, Weight: 150.000 Physical Exam General: Awake, alert, oriented. No apparent distress Respiratory: Lungs are clear to auscultation bilaterally. No respiratory distress. Chest: Normal shape and size. No accessory muscle use. Cardiovascular: Regular rate and rhythm. S1-S2. No murmur, gallop, rub. Gastrointestinal: Abdomen is soft, obese Extremities: No lower extremity edema, cyanosis or clubbing. Neurologic: Alert and oriented x4. Nonfocal Psychiatric: Normal mood and affect. Skin: Normal color. Warm and dry. Review of Systems ROS Review of systems negative except documented in HPI. Results Echocardiogram Echocardiogram LVEF is 60% by preliminary echocardiogram. Moderate LVH.IVSd 1.4 cm. PWd 1.4 cm. VLDd 5.9cm. Diagram Lab Result Diagram: 09/20/2533709/20/25337 Assessment/Plan Additional Plan Patient presents for chest pain and shortness for breath. The following is his problem list: Supraventricular tachycardia Status post synchronized cardioversion --start metoprolol tartrate 25 mg b.i.d.. --outpatient follow up for event monitor Hypertension. Patient denies past diagnosis. Previously on losartan Echocardiogram shows LVH consistent with hypertensive heart disease --start antihypertensives as required with goal blood pressure less than 130/80 Pulmonary embolism/DVT --encouraged compliance with Eliquis. Currently receiving 10 mg b.i.d. Chest pain Secondary to pulmonary embolism given that his symptoms worsened with coughing and deep breathing Case discussed with Dr. Jese Giron who is in agreement with this plan. Supervising MD Supervising Physician: SIDDHARTH Crzu NP Sep 20, 2025 17:12
--- NOTE | 2025-09-20 17:25 | CARDIOLOGY REPORT ---
APPROVED REPORT EXAM: Comprehensive 2D, Doppler, and color-flow Echocardiogram. Patient Location: ED1 Blood Pressure: 169/102 mmHg Heart Rate: 71 bpm Rhythm: NSR Indications Chest Pain SOB Hypertension Pro BNP 164 No belt maker Previous echo 02/19/25 [facility] 60-65% EF ; tr MR TR AI 2D Dimensions LA Diam 4.1 cm IVSd 1.4 (0.7-1.1cm) LVDd 5.9 cm PWd 1.4 (0.7-1.1cm) IVSs 1.7 (0.8-1.2cm) LVDs 4.3 (2.5-4.0cm) Aortic Root(2D) 3.5 cm PWs 1.7 (0.8-1.2cm) LVOT Diameter 2.30 (1.8-2.4cm) LVEF(%) 53.1 (>50%) Ao Asc Diam. 3.58 cm FS (%) 27.8 % SV 93.0 ml CO 6.6 L/min M-Mode Dimensions MV EPSS 2.2 (<0.5cm) Aortic Valve AoV Peak Adama. 200.0 cm/s AoV VTI 31.4 cm AO Peak GR. 16.0 mmHg AO Mean GR. 8 mmHg LVOT VTI 26.89 cm LVOT Peak Adama. 128.3 cm/s ISAAC(VTI)/BSA 3.57 cm2/m2 ISAAC (VTI) 3.57 cm2 AV DI 0.86 % Mitral Valve MV E Velocity 84.2 cm/s MV Peak Gr. 3 mmHg MV DECEL TIME 252 ms MV A Velocity 74.0 cm/s MV PHT 72 ms E/A Ratio 1.1 MVA (PHT) 3.06 cm2 MV VMax 81.8 cm/s TDI Medial E' P. V 9.30 cm/s E/Medial E' 9.1 Tricuspid Valve RAP ESTIMATE 10 mmHg Pulmonary Vein S1 Velocity 32.6 cm/s D2 Velocity 39.0 cm/s PVa Velocity 20.4 cm/s PVa Duration 80 msec LEFT VENTRICLE LV is mildly dilated with moderate concentric hypertrophy. Overall systolic function appears normal. Overall LVEF is 60%. RIGHT VENTRICLE RV appears mildly dilated, with normal contractility. ATRIA Left atrium is mildly dilated. AORTIC VALVE Trileaflet AV appears sclerotic without stenosis. No insufficiency by color and spectral flow Doppler. MITRAL VALVE Mild MV annular calcification without stenosis. Trace regurgitation by color and spectral flow Doppler. TRICUSPID VALVE TV appears structurally normal with trace regurgitation by color and spectral flow Doppler. PULMONIC VALVE Normal PV without stenosis, physiologic insufficiency by color and spectral flow Doppler. GREAT VESSELS The aortic root is normal in size. The ascending aorta is measured at 3.6 cm. IVC is not well visualized. PERICARDIUM There is no pericardial effusion, epicardial pad present. Other Information Study Quality: Adequate Conclusion Overall LVEF is 60%. LV is mildly dilated with moderate concentric hypertrophy. Overall systolic function appears normal. RV appears mildly dilated, with normal contractility. Trileaflet AV appears sclerotic without stenosis. No insufficiency by color and spectral flow Doppler. Mild MV annular calcification without stenosis. Trace regurgitation by color and spectral flow Doppler. TV appears structurally normal with trace regurgitation by color and spectral flow Doppler. Normal PV without stenosis, physiologic insufficiency by color and spectral flow Doppler. There is no pericardial effusion, epicardial pad present.
[2025-09-20 19:39] LABS: CREATININE,URINE RANDOM 58.0 MG/DL
[2025-09-20] MEDS: HYDROmorphone inj. 0.5 MG/0.5 ML DISP.SYRIN IV PRN (20:17)
[2025-09-20 21:30] VITALS: RESP 18; O2SAT 93
[2025-09-20] MEDS: HYDROcodone/acetaminophen 10/325mg tab PO PRN (21:58)
[2025-09-20 22:00] VITALS: BP 153/93; PULSE 70; RESP 16; TEMP 98.5; O2SAT 93
[2025-09-21] VITALS (8 sets, daily range): BP systolic 134–145; BP diastolic 75–97; PULSE 62–91; RESP 16–26; TEMP 97–97.8; O2SAT 91–98
[2025-09-21 06:44] LABS: MEAN PLATELET VOLUME 8.7 FL (7.4-10.4); RED CELL DISTRIBUTION WIDTH 13.6 % (11.5-14.5)
[2025-09-21 07:05] LABS: CREATININE 1.07 MG/DL (0.60-1.10); TOTAL CARBON DIOXIDE 26.6 MMOL/L (24-32); eCRCL 101 ML/MIN; eGFR 72 ML/MIN
--- NOTE | 2025-09-21 15:40 | PROGRESS NOTE- Residence ---
Progress Note - Resident Providers to CC Resident Creating Document: NETTESTEFANO MARTINEZ, RES ~ Antibiotic Timeout Antibiotic Ordered?: No Subjective Patient was seen and examined at the bedside. Patient endorses feeling a little nauseous due to recurrent PEs. He never underwent outpatient hematology workup for recurrent unprovoked PEs and never had a sleep study. Patient is diuresing well with Lasix. Pain is well controlled with [place] and Dilaudid. Objective Vital Signs Date Time Temp Pulse Resp B/P (MAP) Pulse Ox O2 Delivery O2 Flow Rate FiO2 09/21/25 15:01 17 09/21/25 11:00 97.4 91 139/82 (101) 91 Room Air 09/20/25 21:30 0 21 Result Diagram: 09/21/25 0609/21/25 06 General: Awake, oriented to person, place and time HEENT: Conjunctive are pink, sclerae clear, no icterus, pupil is equal in both sides, reactive to light, no ear discharge, no pharyngeal erythema or an edema. Neck: Supple, no JVD, no lymphadenopathy and thyromegaly. Chest: Equal air entry on both lungs, no additional sounds no rhonchi no wheezing at the moment. Cardiovascular: S1-S2 regular sinus rhythm and, tachycardic, no gallops, no rubs, no murmurs Abdomen: No visible peristalsis, Bowel sounds present on auscultation, soft, no tenderness, no guarding, no rigidity Extremities: Right lower extremity discoloration and bigger in size compared to the left lower extremity, pedal edema noted Neurologic: Mental status: alert and conscious, oriented to place, person and time, preserved memory, normal speech. Cranial nerves I-XII: Normal. Motor system: Preserved power, coordination, no evidenced involuntary movements, strength 5/5 in four extremities. Sensory system: Preserved temperature, pain and vibration sensation. 2+ deep tendon reflexes in biceps, triceps, quadriceps. Negative Babinski. Cerebellar: No nystagmus, dysdiadochokinesia, normal [id number] testing. Musculoskeletal: No joint swelling, deformities, inflammations, and no scoliosis and back tenderness Skin: Warm and dry. Dry oral mucosa. Coagulation Studies Laboratory Tests Test 09/20/25 03:38 Prothrombin Time 10.6 SECONDS (9.0-12.0) INR International Normalized Ratio 1.0 INR Activated Partial Thromboplast Time 32 SECONDS (22-32) D-Dimer 1.02 MG/L FEU (0-0.50) H D-Dimer Comment Coagulation Comments Assessment Assessment A 54-year-old male with a medical history of deep vein thrombosis and pulmonary embolisms drove to the emergency department by himself, after he experienced substernal chest pain, described the pain as crushing type of pain rated the pain nine on 10 associated with the palpitations, blurry vision and diaphoresis. Patient stated that he was completely fine when he woke up to urinate and started developing palpitations and chest pain post that. He rested for a while to see if it would go away on its own, but the palpitations and chest pain persisted prompting the patient to come to the emergency department. Patient has a significant history of pulmonary embolisms and DVTs in the past is currently on Eliquis 5 mg b.i.d. The patient reports having undergone a thorough evaluation for malignancy and hypercoagulability as an outpatient, with all tests reportedly returning negative results. ED course: On presentation, 221/146 when patient's EKG showed supraventricular tachycardia. Multiple attempts at adenosine failed. Patient continued to have crashing sternal chest pain therefore cardioversion was done 150 joules of synchronized cardioversion was performed with resolution of SVT in improvement of chest pain. Plan Plan Unprovoked acute on chronic recurrent pulmonary embolism Acute on chronic nonocclusive DVT to right SFV and right popliteal vein Failed outpatient anticoagulation Known history of right lower extremity deep vein thrombosis, right lower extremity appears discolored and bigger in size compared to left lower extremity D-dimer elevated at 1.03; Ordered CTA chest which showed, ordered venous ultrasound which showed acute on chronic nonocclusive DVT to right superior femoral vein and right popliteal vein Started on Eliquis 10 mg b.i.d. SVT, present on admission, resolved Initial EKG showed SVT with heart rate of 180. Patient was given few doses of adenosine without resolution of SVT. Patient was later cardioverted and converted to sinus rhythm. Patient was started on metoprolol 25 mg b.i.d. by Cardiology. Continue telemetry monitoring Chest pain secondary to pulmonary embolism Patient presented with chief complaints of crushing substernal chest pain,9/10 associated with blurring of vision, palpitations and diaphoresis Initial troponins negative; EKG when patient came in significant for supraventricular tachycardia, patient was cardioverted Last Lexiscan which was done in February was negative Hypertensive urgency, present on admission Patient's blood pressure is now improved. Currently on amlodipine 5 mg p.o. daily and metoprolol 25 mg b.i.d. Patient's blood pressure is high secondary to pain. Chronic diastolic heart failure, not in exacerbation Chest x-ray shows cardiomegaly. Started on IV Lasix 20 mg daily. Monitor I&O. CKD stage II Patient's creatinine mildly elevated 1.25, unchanged from baseline Continue to monitor patient's kidney functions. Patient received contrast for CTA chest. Hyperlipidemia Initiated the patient on atorvastatin 80 mg Secondary polycythemia secondary to suspect MANDY, improving Current hemoglobin is 18.5g/dl which came down to 17 Patient needs hematology follow up outpatient for possible phlebotomy and serial monitoring of polycythemia. PE is also possible to secondary polycythemia. Morbid Obesity BMI 38.2 kg/meter sq Recommended weight loss, dietary modification and physical exercise Code Status: Full code DVT Prophylaxis: Eliquis Lines/Tubes: PIV Nutrition: Regular diet PT:yes Prognosis: Guarded Disposition: Continue care in PCU. Anticipated discharge tomorrow. Stefano Martinez MD Internal medicine resident PGY2 Date of Service: Sep 21, 2025 Billing Provider: LUIS CALL MD Common Visit Codes: [id number] INP/OBS CARE(HIGH) STEFANO PERDUE, RES Sep 21, 2025 15:40 LUIS CALL MD Sep 22, 2025 09:20
[2025-09-22 02:00] VITALS: BP 154/91; PULSE 60; RESP 19; TEMP 97; O2SAT 92
[2025-09-22 06:00] VITALS: BP 151/88; PULSE 65; RESP 20; TEMP 97.1; O2SAT 92
[2025-09-22 06:35] LABS: MEAN PLATELET VOLUME 8.9 FL (7.4-10.4); RED CELL DISTRIBUTION WIDTH 13.3 % (11.5-14.5)
[2025-09-22 06:55] LABS: CREATININE 0.97 MG/DL (0.60-1.10); TOTAL CARBON DIOXIDE 26.4 MMOL/L (24-32); eCRCL 111 ML/MIN; eGFR 80 ML/MIN
[2025-09-22 08:00] VITALS: RESP 20; O2SAT 93
[2025-09-22 11:00] VITALS: BP 141/90; PULSE 62; RESP 19; TEMP 97.2; O2SAT 93
[2025-09-22 12:04] VITALS: RESP 14
[2025-09-22] MEDS ORDERED: APIX5TAB3 PO (13:27)
[2025-09-22] MEDS ORDERED: ATOR20TA66 PO (13:27)
[2025-09-22] MEDS ORDERED: NOR5T PO (13:27)
[2025-09-22] MEDS ORDERED: EMPA10TA PO (13:27)
[2025-09-22] MEDS ORDERED: FURO-150 PO (13:27)
[2025-09-22] MEDS ORDERED: ASPI-1071 PO (13:27)
[2025-09-22] MEDS ORDERED: LOP25T PO (13:27)
[2025-09-22] MEDS ORDERED: HYDR-3965 PO (14:13)
--- NOTE | 2025-09-22 14:29 | DISCHARGE SUMMARY-Residence ---
Discharge Summary Providers to CC Resident Creating Document: RAKESH AGUILAR RES ~ Discharge Summary Admission Diagnosis: CHEST PAIN Hospital Course DATE OF ADMISSION: 09/20/25 DATE OF DISCHARGE: 09/22/25 Imaging- Chest x-ray- Lungs: Clear Pleura: No effusion. No pneumothorax. Cardiomediastinal contours: Cardiomegaly. Bones: Unremarkable Echocardiogram- Overall LVEF is 60%. LV is mildly dilated with moderate concentric hypertrophy. Overall systolic function appears normal. RV appears mildly dilated, with normal contractility. Trileaflet AV appears sclerotic without stenosis. No insufficiency by color and spectral flow Doppler. Mild MV annular calcification without stenosis. Trace regurgitation by color and spectral flow Doppler. TV appears structurally normal with trace regurgitation by color and spectral flow Doppler. Normal PV without stenosis, physiologic insufficiency by color and spectral flow Doppler. There is no pericardial effusion, epicardial pad present. Vascular ultrasound- Non-occluvie acute on chronic DVT to Right SFV and Right Pop Vein. Remainder of Right lower extremity appears patent. Contralateral CFV appears patent with respirophasic spontaneous flow and good augmentation. Chest thorax CTA- 1. Nonocclusive pulmonary embolism within the posterior right lower lobe segmental and subsegmental branch. 2. No evidence of right heart strain. 3. Mild diffuse bilateral ground-glass opacity. Discharge Diagnosis\Comment: Unprovoked acute on chronic recurrent pulmonary embolism Acute on chronic nonocclusive DVT to right SFV and right popliteal vein SVT, present on admission, resolved Chest pain secondary to pulmonary embolism Hypertensive urgency, present on admission, resolved Chronic diastolic heart failure, not in exacerbation CKD stage II Hyperlipidemia Secondary polycythemia secondary to suspect MANDY, improving Morbid Obesity Operations\Procedures: None Consultants: Cardiology Complications: None Condition on DC: Stable New Medications: Empagliflozin (Jardiance) 10 Mg Tablet 1 TAB PO DAILY for 30 Days, #30 TAB 0 Refills Furosemide (Lasix) 20 Mg Tablet 20 MG PO DAILY for 30 Days, #30 TAB Hydrocodone Bit/Acetaminophen 5/325 MG (Kelly 5/325 MG) 5 Mg/325 Mg Tablet 1 TAB PO Q6H PRN for pain, #14 TAB Amlodipine Besylate (Amlodipine Besylate) 5 Mg Tablet 2 TAB PO DAILY for 30 Days, #60 TAB Aspirin (Ecotrin*) 81 Mg Tablet.dr 1 TAB PO DAILY for 30 Days, #30 TAB.SR Atorvastatin Calcium (Atorvastatin Calcium) 20 Mg Tablet 40 MG PO DAILY for 30 Days, #60 TAB Metoprolol Tartrate* (Lopressor tablet*) 25 Mg Tablet 25 MG PO Q12H for 30 Days, #30 TAB Hold for SBP below 100mm Hg Hold for Heart Rate below 60. Continued Medications: Apixaban (Eliquis) 5 Mg Tablet 1 TAB PO Q12H for 5 Days, #5 AHFU 0 Refills (This prescription has been renewed) Discharge Summary: A 54-year-old male with a medical history of deep vein thrombosis and pulmonary embolisms drove to the emergency department by himself, after he experienced substernal chest pain, described the pain as crushing type of pain rated the pain nine on 10 associated with the palpitations, blurry vision and diaphoresis. Patient stated that he was completely fine when he woke up to urinate and started developing palpitations and chest pain post that. He rested for a while to see if it would go away on its own, but the palpitations and chest pain persisted prompting the patient to come to the emergency department. Patient has a significant history of pulmonary embolisms and DVTs in the past is currently on Eliquis 5 mg b.i.d. The patient reports having undergone a thorough evaluation for malignancy and hypercoagulability as an outpatient, with all tests reportedly returning negative results. ED course: On presentation, 221/146 when patient's EKG showed supraventricular tachycardia. Multiple attempts at adenosine failed. Patient continued to have crashing sternal chest pain therefore cardioversion was done 150 joules of synchronized cardioversion was performed with resolution of SVT in improvement of chest pain. Hospital course- Patient was treated for unprovoked acute on chronic recurrent pulmonary embolism and acute on chronic nonocclusive DVT to right SFV and right popliteal vein.patient was started on Eliquis 10 mg b.i.d. cardiology was consulted in view of SVT and patient was started on metoprolol 25 mg b.i.d.. Patient stayed in sinus rhythm throughout the hospital stay, no other episodes of SVT were recorded. Patient's hypotension was treated with amlodipine 5 mg and metoprolol 25 mg b.i.d. patient's hypertension was within the normal range at the time of discharge. In view of hyperlipidemia patient was started on atorvastatin 80 mg. Patient's condition improved significantly over the course of his hospital stay. He denied any new complaints. Patient's condition was stable at the time of discharge. And was discharged home. Vital Signs Date Time Temp Pulse Resp B/P (MAP) Pulse Ox O2 Delivery O2 Flow Rate FiO2 09/22/25 11:04 18 09/22/25 09:22 65 09/22/25 02:00 97.0 154/91 (112) 92 Room Air 09/20/25 21:30 0 21 Laboratory Tests Test 09/21/25 06:01 09/22/25 05:33 White Blood Count 8.0 X10'3 8.1 X10'3 Red Blood Count 5.76 X10'6 5.65 X10'6 Hemoglobin 17.1 g/dl 17.0 g/dl Hematocrit 51.5 % 50.0 % Mean Corpuscular Volume 89.4 FL 88.6 FL Mean Corpuscular Hemoglobin 29.6 PG 30.2 PG Mean Corpuscular Hemoglobin Concent 33.2 g/dL 34.1 g/dL Red Cell Distribution Width 13.6 % 13.3 % Platelet Count 268 X10'3 256 X10'3 Mean Platelet Volume 8.7 FL 8.9 FL Neutrophils (%) (Auto) 61.2 % 65.2 % Lymphocytes (%) (Auto) 23.3 % 20.2 % Monocytes (%) (Auto) 12.5 % 11.0 % Eosinophils (%) (Auto) 2.3 % 3.1 % Basophils (%) (Auto) 0.7 % 0.5 % Neutrophils # (Auto) 4.9 X10'3 5.3 X10'3 Lymphocytes # (Auto) 1.9 X10'3 1.6 X10'3 Monocytes # (Auto) 1.0 X10'3 0.9 X10'3 Eosinophils # (Auto) 0.2 X10'3 0.3 X10'3 Basophils # (Auto) 0.1 X10'3 0.0 X10'3 CBC Comment Sodium Level 138 MMOL/L 138 MMOL/L Potassium Level 4.4 MMOL/L 3.8 MMOL/L Chloride Level 104 MMOL/L 103 MMOL/L Carbon Dioxide Level 26.6 MMOL/L 26.4 MMOL/L Anion Gap 7 9 Blood Urea Nitrogen 22 MG/DL 21 MG/DL Creatinine 1.07 MG/DL 0.97 MG/DL Estimated GFR/1.73 m2 72 ML/MIN 80 ML/MIN BUN/Creatinine Ratio 20.6 21.6 Glucose Level 105 MG/DL 96 MG/DL Calcium Level 8.9 MG/DL 8.9 MG/DL Total Bilirubin 1.0 MG/DL 1.2 MG/DL Aspartate Amino Transf (AST/SGOT) 17 U/L 18 U/L Alanine Aminotransferase (ALT/SGPT) 28 U/L 26 U/L Alkaline Phosphatase 101 IU/L 94 IU/L Total Protein 7.2 G/DL 7.3 G/DL Albumin 3.5 G/DL 3.4 G/DL Globulin 3.7 G/DL 3.9 G/DL Albumin/Globulin Ratio 0.9 0.9 Chemistry Comments Examination at the time discharge- General: Awake, oriented to person, place and time HEENT: Conjunctive are pink, sclerae clear, no icterus, pupil is equal in both sides, reactive to light, no ear discharge, no pharyngeal erythema or an edema. Neck: Supple, no JVD, no lymphadenopathy and thyromegaly. Chest: Equal air entry on both lungs, no additional sounds no rhonchi no wheezing at the moment. Cardiovascular: S1-S2 regular sinus rhythm and, no gallops, no rubs, no murmurs Abdomen: No visible peristalsis, Bowel sounds present on auscultation, soft, no tenderness, no guarding, no rigidity Extremities: Right lower extremity discoloration and bigger in size compared to the left lower extremity. Neurologic: Mental status: alert and conscious, oriented to place, person and time, preserved memory, normal speech. Cranial nerves I-XII: Normal. Motor system: Preserved power, coordination, no evidenced involuntary movements, strength 5/5 in four extremities. Sensory system: Preserved temperature, pain and vibration sensation. 2+ deep tendon reflexes in biceps, triceps, quadriceps. Negative Babinski. Cerebellar: No nystagmus, dysdiadochokinesia, normal [id number] testing. Musculoskeletal: No joint swelling, deformities, inflammations, and no scoliosis and back tenderness Skin: Warm and dry. Dry oral mucosa. Discharge medications- New Medications: Empagliflozin (Jardiance) 10 Mg Tablet Furosemide (Lasix) 20 Mg Tablet Hydrocodone Bit/Acetaminophen 5/325 MG (Kelly 5/325 MG) 5 Mg/325 Mg Tablet Amlodipine Besylate 5 Mg Tablet Aspirin (Ecotrin*) 81 Mg Tablet.dr [place] Calcium 20 Mg Tablet Metoprolol Tartrate* (Lopressor tablet*) 25 Mg Tablet Hold for SBP below 100mm Hg Hold for Heart Rate below 60. Additional instructions by the doctor at the time of discharge- Please take Eliquis 10 mg twice a day for five more days and then continue to take Eliquis 5 mg twice a day. You already have Eliquis 5 mg at home and so refilling additional 5 mg for the 10 mg dose. Continue to take aspirin 81 mg daily, metoprolol tartrate 25 mg twice a day, amlodipine 10 mg once daily, Lasix 20 mg once daily and Jardiance 10 mg once daily. Please follow up with the Cardiology-Dr. Giron for heart monitor and also further medication management. Please follow up with the Hematology to get workup done for recurrent blood clots. Please also get a referral for an outpatient sleep study. You are also started on blood pressure medication amlodipine. Please check your blood pressure twice a day and discuss the medication with your PCP. Please hold metoprolol if heart rate less than 60/minute or systolic blood pressure less than 100 mmHg Please visit the ER if you develop any shortness of breaths, chest pain or worsening leg pain. Follow up with Dr. Giron's office with regards to the supraventricular tachycardia. You may call the office at [phone] to schedule. *Problems/Diagnosis: (1) Pulmonary embolism Status: Acute (2) DVT (deep venous thrombosis) (3) Hypertension (4) Obesity Total Time Spent on D/C: > 30 Minutes Addendum PAF Date of Service: Sep 22, 2025 Billing Provider: LUIS CALL MD Common Visit Codes: [id number]/[id number] DISCH DAY >30min RAKESH AGUILAR, RES Sep 22, 2025 14:29 LUIS CALL MD Sep 23, 2025 06:46
[2025-09-22] MEDS ORDERED: HYDR-3973 PO (15:30)
== END 2025-09-22 16:10 | disposition home or self-care (01) | DRG 300 ==
LOC: ER 03:19 → ED HOLD 05:28 → EDBEDREQ 21:00 → PCU 3S 21:25
PROVIDERS: ADMIT Internal Medicine Sleep Medicine; ATTEND Internal Medicine
PROC: 5A2204Z Restoration of Cardiac Rhythm, Single (ICD-10-PCS; principal; 2025-09-20)
PROC: B32T1ZZ Computerized Tomography (CT Scan) of Left Pulmonary Artery using Low Osmolar Contrast (ICD-10-PCS; 2025-09-20)
PROC: B3201ZZ Computerized Tomography (CT Scan) of Thoracic Aorta using Low Osmolar Contrast (ICD-10-PCS; 2025-09-20)
PROC: B32S1ZZ Computerized Tomography (CT Scan) of Right Pulmonary Artery using Low Osmolar Contrast (ICD-10-PCS; 2025-09-20)
DX: I82.411 Acute embolism and thrombosis of right femoral vein (principal); I13.0 Hypertensive heart and chronic kidney disease with heart failure and stage 1 through stage 4 chronic kidney disease, or unspecified chronic kidney disease; I16.1 Hypertensive emergency; I50.32 Chronic diastolic (congestive) heart failure; I47.10 Supraventricular tachycardia, unspecified; I82.431 Acute embolism and thrombosis of right popliteal vein; E11.22 Type 2 diabetes mellitus with diabetic chronic kidney disease; D75.1 Secondary polycythemia; E66.01 Morbid (severe) obesity due to excess calories; G47.33 Obstructive sleep apnea (adult) (pediatric); I95.9 Hypotension, unspecified; I82.511 Chronic embolism and thrombosis of right femoral vein; I82.531 Chronic embolism and thrombosis of right popliteal vein; E78.5 Hyperlipidemia, unspecified; N18.2 Chronic kidney disease, stage 2 (mild); I20.89 Other forms of angina pectoris; Z68.38 Body mass index [BMI] 38.0-38.9, adult; Z86.711 Personal history of pulmonary embolism; Z80.3 Family history of malignant neoplasm of breast
CPT/HCPCS: 36415; 71045; 71275; 80048; 80053; 80061; 82570; 83036; 83735; 83880; 84100; 84300; 84443; 84484; 85025; 85379; 85610; 85730; 87081; 92960; 93005; 93306; 93971; 96374; 96375; 99291; A4620; G0378; J0153; J1171; J1938; J2270; J2405; J3490; J7030; Q9967